=== PATIENT | female | born 1955 | race Caucasian/White ===

== ENCOUNTER → 2018-02-14 07:58 | Outpatient (CLI) | payer OTHER, SELFPAY ==
[2018-02-14 10:35] LABS: Absolute Lymphocyte Count 1.52 X10^3/ul (0.83-4.51); Absolute Neutrophil Count 3.3 X10^3/uL (2.0-7.7); Basophil# 0.03 X10^3/uL; Basophil% 0.5 % (0-1); Eosinophil# 0.18 X10^3/uL; Eosinophils% 3.3 % (0-5); Hematocrit 39.2 % (37-47); Hemoglobin 12.9 g/dl (12.0-15.0); Lymphocyte # 1.52 X10^3/ul (4.0); Lymphocyte % 27.6 % (19-41); Mean Corp Hgb Conc 32.9 g/gl (32-36); Mean Corpuscular Volume 94.2 fL (81-99); Mean Platelet Vol. 10.1 fl (6.2-12.0); Monocyte# 0.43 X10^3/uL; Monocyte% 7.8 % (0-10); Neutrophil # 3.33 X10^3/uL (2.7-7.7); Neutrophil % 60.6 % (47-70); Platelet Count 308 K/mm3 (150-450); RBC Distribution Width CV 12.8 % (11.6-14.6); RBC Distribution Width SD 42.8 fl (35.1-43.9); Red Blood Count 4.16 M/mm3 (4.2-5.4); White Blood Count 5.5 K/mm3 (4.4-11.0)
[2018-02-14 10:38] LABS: POSITIVE COUNT NO; POSITIVE DIFFERENTIAL NO; POSITIVE MORPHOLOGY NO
[2018-02-14 10:51] LABS: ALB/GLOB Ratio 1.1 RATIO (0.9-2.4); AST(SGOT) 14 U/L (15-37); Alanine Aminotransfer ALT/SGPT 23 U/L (13-56); Albumin, Serum 3.6 g/dL (3.2-5.0); Alkaline Phosphatase 65 U/L (45-117); Anion Gap 6 (5-15); BUN 19 mg/dL (7-18); BUN/Creat Ratio 25.6 RATIO (10-20); Chloride 105 mmol/L (98-107); Cholesterol 183 mg/dL (200); Creatinine, Serum 0.74 mg/dL (0.55-1.02); EST Glomerular Filtration Rate 85 mL/min (>60); Est Glom Filt Rate - Afr Amer 103 mL/min (>60); Globulin 3.3 g/dL (2.2-4.2); Glucose 84 mg/dL (74-106); High Density Lipoprotein 44 mg/dL; Potassium 3.8 mmol/L (3.5-5.1); Protein, Total 6.9 g/dL (6.4-8.2); Sodium Level 141 mmol/L (136-145); Triglycerides 233 mg/dL; Very Low Density Lipoprotein 47 mg/dL (5-40)
== END ==
PROVIDERS: Family Provider Nurse Practitioner Family; PCP Nurse Practitioner Family; Visit Provider Nurse Practitioner Family
DX: I10 Essential (primary) hypertension (principal); E78.5 Hyperlipidemia, unspecified; E55.9 Vitamin D deficiency, unspecified
CPT/HCPCS: 36415; 80053; 80061; 82306; 85025

== ENCOUNTER → 2018-07-12 10:49 | Outpatient (CLI) | payer OTHER, SELFPAY ==
[2018-07-18 09:36] LABS: HPV Reflexed? NOT INDICATED
== END ==
PROVIDERS: Visit Provider Obstetrics & Gynecology
DX: Z12.4 Encounter for screening for malignant neoplasm of cervix (principal)
CPT/HCPCS: 88175; G0145

== ENCOUNTER → 2018-08-11 08:40 | Outpatient (CLI) | payer OTHER, SELFPAY ==
--- NOTE | 2018-08-11 08:43 | BI_ITS ---
MAMMOGRAPHY - BILATERAL SCREENING REASON FOR EXAM: Female, 62 years old. Routine annual screening examination. PERTINENT HISTORY: Mother with breast cancer. Grandmother with breast cancer. TECHNIQUE: Digital bilateral breast tj (3D mammographic acquisition) in the CC and MLO projections. 2-D mediolateral oblique (MLO) and craniocaudad (CC) views of both breasts were obtained. CAD: Full Field Digital Mammography with Computer Added Detection was performed. COMPARISON: Comparison is made with prior study dated June 17, 2017 and April 27, 2016. FINDINGS: Breast Composition: The breasts are almost entirely fatty. There are no dominant masses or suspicious calcifications. Stable small bilateral axillary lymph nodes. No other significant abnormalities are identified. There has been no significant change since the prior study. BI/SCREENING MAMM (CAD), BILAT IMPRESSION: Stable bilateral screening mammogram. Yearly follow-up mammogram recommended. (A) ASSESSMENT CATEGORY: BIRADS Category 2: Benign. A letter regarding these results will be sent to the patient by the facility within 30 days. Approximately 10% of breast cancers are not detected by mammography. A normal mammogram should not delay biopsy of a clinically suspicious abnormality. [id number] Electronically Signed: Fredy Knox MD at 9:58 EDT Tel [phone], Service support ,
== END ==
PROVIDERS: Family Provider Nurse Practitioner Family; PCP Nurse Practitioner Family; Referring Provider Obstetrics & Gynecology; Visit Provider Obstetrics & Gynecology
DX: Z12.31 Encounter for screening mammogram for malignant neoplasm of breast (principal)
CPT/HCPCS: 77063; 77067

== ENCOUNTER → 2018-08-22 07:38 | Outpatient (CLI) | payer OTHER, SELFPAY ==
[2018-08-22 10:27] LABS: Absolute Lymphocyte Count 1.37 X10^3/ul (0.83-4.51); Absolute Neutrophil Count 3.5 X10^3/uL (2.0-7.7); Basophil# 0.03 X10^3/uL; Basophil% 0.6 % (0-1); Eosinophil# 0.13 X10^3/uL; Eosinophils% 2.4 % (0-5); Hematocrit 39.8 % (37-47); Hemoglobin 12.8 g/dl (12.0-15.0); Lymphocyte # 1.37 X10^3/ul (4.0); Lymphocyte % 25.1 % (19-41); Mean Corp Hgb Conc 32.2 g/gl (32-36); Mean Corpuscular Hgb 30.7 pg (27.0-32.0); Mean Corpuscular Volume 95.4 fL (81-99); Mean Platelet Vol. 10.1 fl (6.2-12.0); Monocyte# 0.45 X10^3/uL; Monocyte% 8.3 % (0-10); Neutrophil # 3.45 X10^3/uL (2.7-7.7); Neutrophil % 63.2 % (47-70); POSITIVE COUNT NO; POSITIVE DIFFERENTIAL NO; POSITIVE MORPHOLOGY NO; Platelet Count 298 K/mm3 (150-450); RBC Distribution Width CV 12.8 % (11.6-14.6); RBC Distribution Width SD 43.5 fl (35.1-43.9); Red Blood Count 4.17 M/mm3 (4.2-5.4); White Blood Count 5.5 K/mm3 (4.4-11.0)
[2018-08-22 10:41] LABS: ALB/GLOB Ratio 1.1 RATIO (0.9-2.4); AST(SGOT) 18 U/L (15-37); Alanine Aminotransfer ALT/SGPT 34 U/L (13-56); Albumin, Serum 3.7 g/dL (3.2-5.0); Alkaline Phosphatase 71 U/L (45-117); Anion Gap 6 (5-15); BUN 16 mg/dL (7-18); BUN/Creat Ratio 20.4 RATIO (10-20); Calcium,Total 9.2 mg/dL (8.5-10.1); Chloride 105 mmol/L (98-107); Cholesterol 200 mg/dL (200); Creatinine, Serum 0.78 mg/dL (0.55-1.02); EST Glomerular Filtration Rate 79 mL/min (>60); Est Glom Filt Rate - Afr Amer 96 mL/min (>60); Globulin 3.5 g/dL (2.2-4.2); Glucose 89 mg/dL (74-106); High Density Lipoprotein 47 mg/dL; Potassium 3.9 mmol/L (3.5-5.1); Protein, Total 7.2 g/dL (6.4-8.2); Sodium Level 142 mmol/L (136-145); Triglycerides 177 mg/dL; Very Low Density Lipoprotein 35 mg/dL (5-40)
[2018-08-22 10:46] LABS: Vitamin D,25 Hydroxy 58.2 ng/mL (29.95-100.01)
== END ==
PROVIDERS: Family Provider Nurse Practitioner Family; PCP Nurse Practitioner Family; Referring Provider Nurse Practitioner Family; Visit Provider Nurse Practitioner Family
DX: I10 Essential (primary) hypertension (principal); E78.5 Hyperlipidemia, unspecified; E55.9 Vitamin D deficiency, unspecified
CPT/HCPCS: 36415; 80053; 80061; 82043; 82306; 85025

== ENCOUNTER → 2019-02-27 07:06 | Outpatient (CLI) | payer OTHER, SELFPAY ==
[2019-02-27 10:17] LABS: Absolute Lymphocyte Count 1.31 X10^3/ul (0.83-4.51); Absolute Neutrophil Count 3.4 X10^3/uL (2.0-7.7); Basophil# 0.05 X10^3/uL; Basophil% 0.9 % (0-1); Eosinophils% 3.7 % (0-5); Hemoglobin 12.9 g/dl (12.0-15.0); Lymphocyte # 1.31 X10^3/ul (4.0); Mean Corp Hgb Conc 32.3 g/gl (32-36); Mean Corpuscular Hgb 30.1 pg (27.0-32.0); Mean Corpuscular Volume 93.5 fL (81-99); Mean Platelet Vol. 9.9 fl (6.2-12.0); Monocyte# 0.49 X10^3/uL; Neutrophil % 62.2 % (47-70); Platelet Count 285 K/mm3 (150-450); RBC Distribution Width CV 13.1 % (11.6-14.6); RBC Distribution Width SD 43.4 fl (35.1-43.9); Red Blood Count 4.28 M/mm3 (4.2-5.4); White Blood Count 5.5 K/mm3 (4.4-11.0)
[2019-02-27 10:24] LABS: POSITIVE COUNT NO; POSITIVE DIFFERENTIAL NO; POSITIVE MORPHOLOGY NO
[2019-02-27 11:00] LABS: Vitamin D,25 Hydroxy 59.1 ng/mL (29.95-100.01)
[2019-02-27 11:01] LABS: ALB/GLOB Ratio 1.1 RATIO (0.9-2.4); AST(SGOT) 25 U/L (15-37); Alanine Aminotransfer ALT/SGPT 44 U/L (13-56); Albumin, Serum 3.6 g/dL (3.2-5.0); Alkaline Phosphatase 76 U/L (45-117); Anion Gap 4 (5-15); BUN 14 mg/dL (7-18); BUN/Creat Ratio 17.7 RATIO (10-20); Calcium,Total 8.9 mg/dL (8.5-10.1); Chloride 106 mmol/L (98-107); Cholesterol 194 mg/dL (200); Creatinine, Serum 0.79 mg/dL (0.55-1.02); EST Glomerular Filtration Rate 78 mL/min (>60); Est Glom Filt Rate - Afr Amer 95 mL/min (>60); Globulin 3.4 g/dL (2.2-4.2); Glucose 87 mg/dL (74-106); High Density Lipoprotein 47 mg/dL; Potassium 3.9 mmol/L (3.5-5.1); Sodium Level 141 mmol/L (136-145); Triglycerides 184 mg/dL; Very Low Density Lipoprotein 37 mg/dL (5-40)
== END ==
PROVIDERS: Family Provider Nurse Practitioner Family; PCP Nurse Practitioner Family; Referring Provider Nurse Practitioner Family; Visit Provider Nurse Practitioner Family
DX: E78.5 Hyperlipidemia, unspecified (principal); E55.9 Vitamin D deficiency, unspecified; I10 Essential (primary) hypertension
CPT/HCPCS: 36415; 80053; 80061; 82306; 85025

== ENCOUNTER → 2019-08-14 | Outpatient (CLI) | payer OTHER, SELFPAY ==
--- NOTE | 2019-08-14 14:22 | BI_ITS ---
MAMMOGRAPHY - BILATERAL SCREENING REASON FOR EXAM: Female, 63 years old. Routine annual screening examination. PERTINENT HISTORY: Mother with breast cancer. Grandmother with breast cancer. TECHNIQUE: Digital bilateral breast tesha (3D mammographic acquisition) in the CC and MLO projections. 2-D mediolateral oblique (MLO) and craniocaudad (CC) views of both breasts were obtained. CAD: Full Field Digital Mammography with Computer Added Detection was performed. COMPARISON: Comparison is made with prior examination dated August 11, 2018 and June 17, 2017. FINDINGS: Breast Composition: The breasts are almost entirely fatty. There are no dominant masses or suspicious calcifications. Stable small benign-appearing right axillary lymph nodes. No other significant abnormalities are identified. There has been no significant change since the prior study. BI/SCREEN MAMM (CAD) W/TESHA BILAT IMPRESSION: Stable bilateral screening mammogram. Yearly follow-up mammogram recommended. (A) ASSESSMENT CATEGORY: BIRADS Category 2: Benign. A letter regarding these results will be sent to the patient by the facility within 30 days. Approximately 10% of breast cancers are not detected by mammography. A normal mammogram should not delay biopsy of a clinically suspicious abnormality. [id number] Electronically Signed: Fredy Knox, at 15:36 EDT , Service support ,
--- NOTE | 2019-08-14 14:28 | BD_ITS ---
STUDY: DUAL ENERGY X-RAY ABSORPTIOMETRY / DXA REASON FOR EXAM: Female, 63 years old. The patient is postmenopausal. Loss of height. TECHNIQUE: Bone Mineral Density (BMD) measurements of lumbar spine and bilateral hips were obtained. COMPARISON: None. FINDINGS: Lumbar Spine (L1-L4): g/cm2 (1.402) / T-score (2.0) / Z-score (3.3) Findings are suggestive of normal bone density with a low fracture risk. Left Femur Total: g/cm2 (1.174) / T-score (1.3) / Z-score (2.3) Left Femoral Neck: g/cm2 (1.230) / T-score (1.4) / Z-score (2.7) Right Femur Total: g/cm2 (1.191) / T-score (1.5) / Z-score (2.5) Right Femoral Neck: g/cm2 (1.196) / T-score (1.1) / Z-score (2.5) BD/Dexa Bone Density Study IMPRESSION: The patient is considered normal as outlined below according to World Dillon Organization (WHO) criteria with a low fracture risk. Reference Information: The T-score is the number of standard deviations above or below the standard which is normal for young adults at their peak bone mineral density. The World Health Organization (WHO) interprets the T-scores as follows: Above -1 Normal bone density Between -1 and -2.5 Osteopenia Equal to / or below -2.5 Osteoporosis As a practical clinical guideline, osteopenia may be graded as follows: Mild -1 through -1.5 Moderate -1.6 through -2.0 Severe -2.1 through -2.4 The Z-score is the number of standard deviations above or below age-matched controls. A Z-score of less than -1.5 would be considered abnormal. References: 1. NIH Osteoporosis and Related Bone Diseases http://www.osteo.org 2. International Society for Clinical Densitometry http://www.iscd.org 3. National Osteoporosis Foundation http://www.nof.org Electronically Signed: Fredy Knox, at 15:49 EDT , Service support ,
== END | disposition home or self-care (01) ==
LOC: OPBD 14:20
PROVIDERS: Family Provider Nurse Practitioner Family; PCP Nurse Practitioner Family; Referring Provider Obstetrics & Gynecology; Visit Provider Obstetrics & Gynecology
DX: N95.1 Menopausal and female climacteric states (principal); Z12.31 Encounter for screening mammogram for malignant neoplasm of breast
CPT/HCPCS: 77063; 77067; 77080

== ENCOUNTER → 2019-08-21 | Outpatient (CLI) | payer OTHER, SELFPAY ==
[2019-08-21 10:13] LABS: Absolute Lymphocyte Count 1.34 X10^3/uL (0.83-4.51); Absolute Neutrophil Count 3.4 X10^3/uL (2.0-7.7); Basophil# 0.05 X10^3/uL; Basophil% 0.9 % (0-1); Eosinophil# 0.11 X10^3/uL; Eosinophils% 2.1 % (0-5); Hematocrit 40.5 % (37-47); Hemoglobin 13.1 g/dL (12.0-15.0); Lymphocyte # 1.34 X10^3/ul (4.0); Lymphocyte % 25.1 % (19-41); Mean Corp Hgb Conc 32.3 g/dL (32-36); Mean Corpuscular Hgb 30.8 pg (27.0-32.0); Mean Corpuscular Volume 95.3 fL (81-99); Mean Platelet Vol. 9.7 fl (6.2-12.0); Monocyte# 0.42 X10^3/uL; Monocyte% 7.9 % (0-10); NRBC Flagged by Analyzer 0 % (0-5); Neutrophil # 3.39 X10^3/uL (2.7-7.7); Neutrophil % 63.4 % (47-70); Platelet Count 322 K/mm3 (150-450); RBC Distribution Width CV 12.5 % (11.6-14.6); RBC Distribution Width SD 43.1 fl (35.1-43.9); Red Blood Count 4.25 M/mm3 (4.2-5.4); White Blood Count 5.3 K/mm3 (4.4-11.0)
[2019-08-21 10:30] LABS: ALB/GLOB Ratio 1.1 RATIO (0.9-2.4); AST(SGOT) 18 U/L (15-37); Alanine Aminotransfer ALT/SGPT 26 U/L (13-56); Albumin, Serum 3.6 g/dL (3.2-5.0); Alkaline Phosphatase 65 U/L (45-117); Anion Gap 6 (5-15); BUN 17 mg/dL (7-18); BUN/Creat Ratio 20.8 RATIO (10-20); Calcium,Total 9.2 mg/dL (8.5-10.1); Chloride 106 mmol/L (98-107); Cholesterol 193 mg/dL (200); Creatinine, Serum 0.82 mg/dL (0.55-1.02); EST Glomerular Filtration Rate 75 mL/min (>60); Est Glom Filt Rate - Afr Amer 91 mL/min (>60); Globulin 3.4 g/dL (2.2-4.2); Glucose 96 mg/dL (74-106); High Density Lipoprotein 54 mg/dL; Microalbumin,Random Urine 5.4 mg/L (NO RANGE EST.); Sodium Level 142 mmol/L (136-145); Triglycerides 160 mg/dL; Very Low Density Lipoprotein 32 mg/dL (5-40)
[2019-08-21 10:41] LABS: Vitamin D,25 Hydroxy 63.3 ng/mL (29.95-100.01)
== END | disposition home or self-care (01) ==
LOC: MTLAB 07:39
PROVIDERS: Family Provider Nurse Practitioner Family; PCP Nurse Practitioner Family; Referring Provider Nurse Practitioner Family; Visit Provider Nurse Practitioner Family
DX: E78.5 Hyperlipidemia, unspecified (principal); E55.9 Vitamin D deficiency, unspecified; I10 Essential (primary) hypertension
CPT/HCPCS: 36415; 80053; 80061; 82043; 82306; 85025

== ENCOUNTER → 2020-02-12 | Outpatient (CLI) | payer OTHER, SELFPAY ==
[2020-02-12 10:04] LABS: Hematocrit 40.1 % (37-47); Hemoglobin 12.7 g/dL (12.0-15.0); Mean Corp Hgb Conc 31.7 g/dL (32-36); Mean Corpuscular Hgb 30.1 pg (27.0-32.0); Platelet Count 324 K/mm3 (150-450); RBC Distribution Width CV 12.8 % (11.6-14.6); RBC Distribution Width SD 44.5 fl (35.1-43.9); Red Blood Count 4.22 M/mm3 (4.2-5.4); White Blood Count 6.2 K/mm3 (4.4-11.0)
[2020-02-12 10:20] LABS: ALB/GLOB Ratio 1.1 RATIO (0.9-2.4); AST(SGOT) 19 U/L (15-37); Alanine Aminotransfer ALT/SGPT 31 U/L (13-56); Albumin, Serum 3.5 g/dL (3.2-5.0); Alkaline Phosphatase 70 U/L (45-117); Anion Gap 4 (5-15); BUN 12 mg/dL (7-18); BUN/Creat Ratio 15.6 RATIO (10-20); Calcium,Total 9.4 mg/dL (8.5-10.1); Chloride 106 mmol/L (98-107); Cholesterol 189 mg/dL (200); Creatinine, Serum 0.77 mg/dL (0.55-1.02); EST Glomerular Filtration Rate 81 mL/min (>60); Est Glom Filt Rate - Afr Amer 98 mL/min (>60); Globulin 3.3 g/dL (2.2-4.2); Glucose 92 mg/dL (74-106); High Density Lipoprotein 47 mg/dL; Potassium 3.7 mmol/L (3.5-5.1); Protein, Total 6.8 g/dL (6.4-8.2); Sodium Level 140 mmol/L (136-145); Triglycerides 121 mg/dL; Very Low Density Lipoprotein 24 mg/dL (5-40)
[2020-02-12 10:24] LABS: Vitamin D,25 Hydroxy 79.5 ng/mL
== END | disposition home or self-care (01) ==
LOC: MTLAB 07:29
PROVIDERS: PCP Nurse Practitioner Family; Referring Provider Nurse Practitioner Family; Visit Provider Nurse Practitioner Family
DX: E55.9 Vitamin D deficiency, unspecified (principal); E78.5 Hyperlipidemia, unspecified; I10 Essential (primary) hypertension
CPT/HCPCS: 36415; 80053; 80061; 82306; 85027

== ENCOUNTER → 2020-08-21 08:09 | Outpatient (CLI) | payer OTHER, SELFPAY ==
[2020-08-21 10:17] LABS: Hematocrit 41.5 % (37-47); Hemoglobin 13.3 g/dL (12.0-15.0); Mean Corpuscular Hgb 30.5 pg (27.0-32.0); Mean Corpuscular Volume 95.2 fL (81-99); Mean Platelet Vol. 9.9 fl (6.2-12.0); Platelet Count 344 K/mm3 (150-450); RBC Distribution Width CV 12.5 % (11.6-14.6); RBC Distribution Width SD 43.4 fl (35.1-43.9); Red Blood Count 4.36 M/mm3 (4.2-5.4); White Blood Count 5.6 K/mm3 (4.4-11.0)
[2020-08-21 10:34] LABS: ALB/GLOB Ratio 1.1 RATIO (0.9-2.4); AST(SGOT) 20 U/L (15-37); Alanine Aminotransfer ALT/SGPT 36 U/L (13-56); Albumin, Serum 3.7 g/dL (3.2-5.0); Alkaline Phosphatase 79 U/L (45-117); Anion Gap 3 (5-15); BUN 13 mg/dL (7-18); BUN/Creat Ratio 15.7 RATIO (10-20); Calcium,Total 9.6 mg/dL (8.5-10.1); Chloride 105 mmol/L (98-107); Cholesterol 202 mg/dL (200); Creatinine, Serum 0.83 mg/dL (0.55-1.02); EST Glomerular Filtration Rate 74 mL/min (>60); Est Glom Filt Rate - Afr Amer 90 mL/min (>60); Globulin 3.5 g/dL (2.2-4.2); Glucose 101 mg/dL (74-106); High Density Lipoprotein 51 mg/dL; Potassium 4.2 mmol/L (3.5-5.1); Protein, Total 7.2 g/dL (6.4-8.2); Sodium Level 139 mmol/L (136-145); Triglycerides 186 mg/dL; Very Low Density Lipoprotein 37 mg/dL (5-40)
[2020-08-21 13:53] LABS: Vitamin D,25 Hydroxy 80.7 ng/mL
== END ==
PROVIDERS: PCP Nurse Practitioner Family; Referring Provider Nurse Practitioner Family; Visit Provider Nurse Practitioner Family
DX: I10 Essential (primary) hypertension (principal); E78.5 Hyperlipidemia, unspecified; E55.9 Vitamin D deficiency, unspecified
CPT/HCPCS: 36415; 80053; 80061; 82306; 85027

== ENCOUNTER → 2021-08-24 07:45 | Outpatient (CLI) | payer SELFPAY ==
[2021-08-24 09:57] LABS: Hematocrit 38.2 % (37-47); Hemoglobin 12.9 g/dL (12.0-15.0); Mean Corp Hgb Conc 33.8 g/dL (32-36); Mean Corpuscular Hgb 31.3 pg (27.0-32.0); Mean Corpuscular Volume 92.7 fL (81-99); Mean Platelet Vol. 9.9 fl (6.2-12.0); Platelet Count 323 K/mm3 (150-450); RBC Distribution Width CV 12.5 % (11.6-14.6); RBC Distribution Width SD 42.8 fl (35.1-43.9); Red Blood Count 4.12 M/mm3 (4.2-5.4); White Blood Count 5.2 K/mm3 (4.4-11.0)
[2021-08-24 10:10] LABS: AST(SGOT) 19 U/L (15-37); Alanine Aminotransfer ALT/SGPT 32 U/L (13-56); Albumin, Serum 3.5 g/dL (3.2-5.0); Alkaline Phosphatase 73 U/L (45-117); Anion Gap 3 (5-15); BUN 15 mg/dL (7-18); BUN/Creat Ratio 21.2 RATIO (10-20); Calcium,Total 9.6 mg/dL (8.5-10.1); Chloride 106 mmol/L (98-107); Creatinine, Serum 0.71 mg/dL (0.55-1.02); EST Glomerular Filtration Rate 88 mL/min (>60); Est Glom Filt Rate - Afr Amer 107 mL/min (>60); Globulin 3.6 g/dL (2.2-4.2); Glucose 100 mg/dL (74-106); Protein, Total 7.1 g/dL (6.4-8.2); Sodium Level 138 mmol/L (136-145)
[2021-08-24 10:14] LABS: Vitamin D,25 Hydroxy 83.4 ng/mL
== END ==
PROVIDERS: PCP Nurse Practitioner Family; Referring Provider Nurse Practitioner Family; Visit Provider Nurse Practitioner Family
DX: I10 Essential (primary) hypertension (principal); E78.5 Hyperlipidemia, unspecified; E55.9 Vitamin D deficiency, unspecified
CPT/HCPCS: 36415; 80053; 82306; 85027

== ENCOUNTER → 2022-02-23 | Outpatient (CLI) | payer SELFPAY ==
[2022-02-23 10:12] LABS: Hematocrit 37.8 % (37-47); Hemoglobin 12.6 g/dL (12.0-15.0); Mean Corp Hgb Conc 33.3 g/dL (32-36); Mean Corpuscular Hgb 30.7 pg (27.0-32.0); Mean Platelet Vol. 9.8 fl (6.2-12.0); Platelet Count 336 K/mm3 (150-450); RBC Distribution Width CV 12.8 % (11.6-14.6); RBC Distribution Width SD 43.3 fl (35.1-43.9); Red Blood Count 4.11 M/mm3 (4.2-5.4); White Blood Count 5.2 K/mm3 (4.4-11.0)
[2022-02-23 10:53] LABS: Vitamin D,25 Hydroxy 85.1 ng/mL
[2022-02-23 11:21] LABS: ALB/GLOB Ratio 1.1 RATIO (0.9-2.4); AST(SGOT) 23 U/L (15-37); Alanine Aminotransfer ALT/SGPT 34 U/L (13-56); Albumin, Serum 3.6 g/dL (3.2-5.0); Alkaline Phosphatase 69 U/L (45-117); Anion Gap 9 (5-15); BUN 17 mg/dL (7-18); BUN/Creat Ratio 22.8 RATIO (10-20); Calcium,Total 9.3 mg/dL (8.5-10.1); Chloride 104 mmol/L (98-107); Cholesterol 195 mg/dL (200); Creatinine, Serum 0.74 mg/dL (0.55-1.02); EST Glomerular Filtration Rate 83 mL/min (>60); Est Glom Filt Rate - Afr Amer 101 mL/min (>60); Globulin 3.3 g/dL (2.2-4.2); Glucose 95 mg/dL (74-106); High Density Lipoprotein 48 mg/dL; Potassium 3.7 mmol/L (3.5-5.1); Protein, Total 6.9 g/dL (6.4-8.2); Sodium Level 140 mmol/L (136-145); Triglycerides 152 mg/dL; Very Low Density Lipoprotein 30 mg/dL (5-40)
== END | disposition home or self-care (01) ==
PROVIDERS: PCP Nurse Practitioner Family; Referring Provider Nurse Practitioner Family; Visit Provider Nurse Practitioner Family
DX: D64.9 Anemia, unspecified (principal); I10 Essential (primary) hypertension; E78.5 Hyperlipidemia, unspecified; E55.9 Vitamin D deficiency, unspecified
CPT/HCPCS: 36415; 80053; 80061; 82306; 85027

== ENCOUNTER → 2022-08-24 | Outpatient (CLI) | payer MEDICARE, SELFPAY ==
[2022-08-24 10:07] LABS: Hematocrit 38.1 % (37-47); Hemoglobin 12.5 g/dL (12.0-15.0); Mean Corp Hgb Conc 32.8 g/dL (32-36); Mean Corpuscular Hgb 30.9 pg (27.0-32.0); Mean Corpuscular Volume 94.3 fL (81-99); Mean Platelet Vol. 9.6 fl (6.2-12.0); Platelet Count 328 K/mm3 (150-450); RBC Distribution Width CV 12.7 % (11.6-14.6); RBC Distribution Width SD 43.9 fl (35.1-43.9); Red Blood Count 4.04 M/mm3 (4.2-5.4); White Blood Count 5.2 K/mm3 (4.4-11.0)
[2022-08-24 10:23] LABS: Vitamin D,25 Hydroxy 83.9 ng/mL
[2022-08-24 10:36] LABS: ALB/GLOB Ratio 1.1 RATIO (0.9-2.4); AST(SGOT) 17 U/L (15-37); Alanine Aminotransfer ALT/SGPT 31 U/L (13-56); Albumin, Serum 3.5 g/dL (3.2-5.0); Alkaline Phosphatase 67 U/L (45-117); Anion Gap 6 (5-15); BUN 13 mg/dL (7-18); BUN/Creat Ratio 18.9 RATIO (10-20); Calcium,Total 9.6 mg/dL (8.5-10.1); Chloride 105 mmol/L (98-107); Cholesterol 200 mg/dL (200); Creatinine, Serum 0.69 mg/dL (0.55-1.02); EST Glomerular Filtration Rate 91 mL/min (>60); Est Glom Filt Rate - Afr Amer 110 mL/min (>60); Globulin 3.3 g/dL (2.2-4.2); Glucose 99 mg/dL (74-106); High Density Lipoprotein 51 mg/dL; Potassium 4.2 mmol/L (3.5-5.1); Protein, Total 6.8 g/dL (6.4-8.2); Sodium Level 141 mmol/L (136-145); Thyroid Stim Hormone (TSH) 1.07 uIU/mL (0.358-3.74); Triglycerides 172 mg/dL; Very Low Density Lipoprotein 34 mg/dL (5-40)
[2022-08-24 10:44] LABS: Microalbumin,Random Urine 6.2 mg/L (NO RANGE EST.)
== END | disposition home or self-care (01) ==
LOC: MTLAB 08:00
PROVIDERS: PCP Nurse Practitioner Family; Referring Provider Nurse Practitioner Family; Visit Provider Nurse Practitioner Family
DX: I10 Essential (primary) hypertension (principal); E78.5 Hyperlipidemia, unspecified; E55.9 Vitamin D deficiency, unspecified; D64.9 Anemia, unspecified; K21.9 Gastro-esophageal reflux disease without esophagitis
CPT/HCPCS: 36415; 80053; 80061; 82043; 82306; 84443; 85027

== ENCOUNTER → 2022-09-28 | Outpatient (CLI) | payer MEDICARE, SELFPAY ==
--- NOTE | 2022-09-28 13:42 | BI_ITS ---
MAMMOGRAPHY - BILATERAL SCREENING REASON FOR EXAM: Female, 67 years old. Routine annual screening examination. PERTINENT HISTORY: Mother with breast cancer. Grandmother with breast cancer. TECHNIQUE: Digital bilateral breast tesha (3D mammographic acquisition) in the CC and MLO projections. 2-D mediolateral oblique (MLO) and craniocaudad (CC) views of both breasts were obtained. CAD: Full Field Digital Mammography with Computer Added Detection was performed. COMPARISON: Comparison is made with prior study dated 08/14/2019 and 08/11/2018. FINDINGS: Breast Composition: The breasts are almost entirely fatty. There are no dominant masses or suspicious calcifications. Stable small benign appearing bilateral axillary lymph nodes. No other significant abnormalities are identified. There has been no significant change since the prior study. BI/SCRN MAMM (CAD)W/TESHA BILAT IMPRESSION: Stable bilateral screening mammogram. Yearly follow-up mammogram recommended. (A) ASSESSMENT CATEGORY: BIRADS Category 2: Benign. A letter regarding these results will be sent to the patient by the facility within 30 days. Approximately 10% of breast cancers are not detected by mammography. A normal mammogram should not delay biopsy of a clinically suspicious abnormality. [id number] Electronically Signed: Fredy Knox MD at 14:59 EST ,
--- NOTE | 2022-09-28 13:49 | BD_ITS ---
STUDY: DUAL ENERGY X-RAY ABSORPTIOMETRY / DXA REASON FOR EXAM: Female, 67 years old. [id number] TECHNIQUE: Bone Mineral Density (BMD) measurements of lumbar spine and bilateral hips were obtained. COMPARISON: Comparison is made with prior study dated 08/14/2019. FINDINGS: Lumbar Spine (L1-L4): g/cm2 (1.211) / T-score (1.8) / Z-score (3.5) Findings are suggestive of normal bone density with a low fracture risk. Left Femur Total: g/cm2 (1.085) / T-score (1.2) / Z-score (2.4) Left Femoral Neck: g/cm2 (0.902) / T-score (0.5) / Z-score (2.0) Right Femur Total: g/cm2 (1.104) / T-score (1.3) / Z-score (2.6) Right Femoral Neck: g/cm2 (0.981) / T-score (1.2) / Z-score (2.7) The T-Scores on the most recent prior examination were: Lumbar Spine (L1-L4): There has been worsening of bone density since the previous examination. Left Femur Total: which represents a worsening of 1.7%. Right Femur Total: which represents a worsening of 1.4%. BD/Dexa Bone Density Study IMPRESSION: The patient is considered normal as outlined below according to World [place] Organization (WHO) criteria with a low fracture risk. There has been worsening of bone density since the previous examination. Reference Information: The T-score is the number of standard deviations above or below the standard which is normal for young adults at their peak bone mineral density. The World Health Organization (WHO) interprets the T-scores as follows: Above -1 Normal bone density Between -1 and -2.5 Osteopenia Equal to / or below -2.5 Osteoporosis As a practical clinical guideline, osteopenia may be graded as follows: Mild -1 through -1.5 Moderate -1.6 through -2.0 Severe -2.1 through -2.4 The Z-score is the number of standard deviations above or below age-matched controls. A Z-score of less than -1.5 would be considered abnormal. References: 1. NIH Osteoporosis and Related Bone Diseases www osteo.org 2. International Society for Clinical Densitometry www iscd.org 3. National Osteoporosis Foundation www nof.org Electronically Signed: Fredy Knox MD at 14:17 EST ,
== END | disposition home or self-care (01) ==
LOC: OPBI 13:40
PROVIDERS: PCP Nurse Practitioner Family; Visit Provider Obstetrics & Gynecology Gynecology
DX: Z12.31 Encounter for screening mammogram for malignant neoplasm of breast (principal); M85.80 Other specified disorders of bone density and structure, unspecified site; Z80.3 Family history of malignant neoplasm of breast; Z78.0 Asymptomatic menopausal state
CPT/HCPCS: 77063; 77067; 77080

== ENCOUNTER → 2023-02-24 | Outpatient (CLI) | payer MEDICARE, SELFPAY ==
[2023-02-24 10:17] LABS: Hemoglobin 12.3 g/dL (12.0-15.0); Mean Corp Hgb Conc 31.5 g/dL (32-36); Mean Corpuscular Hgb 29.8 pg (27.0-32.0); Mean Corpuscular Volume 94.4 fL (81-99); Mean Platelet Vol. 9.6 fl (6.2-12.0); Platelet Count 310 K/mm3 (150-450); RBC Distribution Width CV 12.8 % (11.6-14.6); RBC Distribution Width SD 44.2 fl (35.1-43.9); Red Blood Count 4.13 M/mm3 (4.2-5.4); White Blood Count 4.7 K/mm3 (4.4-11.0)
[2023-02-24 10:40] LABS: Vitamin D,25 Hydroxy 76.9 ng/mL
[2023-02-24 10:45] LABS: ALB/GLOB Ratio 1.1 RATIO (0.9-2.4); AST(SGOT) 17 U/L (15-37); Alanine Aminotransfer ALT/SGPT 30 U/L (13-56); Albumin, Serum 3.7 g/dL (3.2-5.0); Alkaline Phosphatase 60 U/L (45-117); Anion Gap 5 (5-15); BUN 12 mg/dL (7-18); BUN/Creat Ratio 16.2 RATIO (10-20); Calcium,Total 9.6 mg/dL (8.5-10.1); Chloride 105 mmol/L (98-107); Cholesterol 182 mg/dL (200); Creatinine, Serum 0.74 mg/dL (0.55-1.02); EST Glomerular Filtration Rate 84 mL/min (>60); Est Glom Filt Rate - Afr Amer 101 mL/min (>60); Globulin 3.4 g/dL (2.2-4.2); Glucose 92 mg/dL (74-106); High Density Lipoprotein 51 mg/dL; Potassium 4.3 mmol/L (3.5-5.1); Protein, Total 7.1 g/dL (6.4-8.2); Sodium Level 140 mmol/L (136-145); Triglycerides 127 mg/dL; Very Low Density Lipoprotein 25 mg/dL (5-40)
== END | disposition home or self-care (01) ==
LOC: MTLAB 08:00
PROVIDERS: PCP Nurse Practitioner Family; Referring Provider Nurse Practitioner Family; Visit Provider Nurse Practitioner Family
DX: D64.9 Anemia, unspecified (principal); R63.8 Other symptoms and signs concerning food and fluid intake; I10 Essential (primary) hypertension; E78.5 Hyperlipidemia, unspecified; E55.9 Vitamin D deficiency, unspecified
CPT/HCPCS: 36415; 80053; 80061; 82306; 85027

== ENCOUNTER → 2023-08-19 | Outpatient (CLI) | payer MEDICARE, SELFPAY ==
[2023-08-19 13:27] LABS: Hematocrit 42.2 % (37-47); Hemoglobin 13.6 g/dL (12.0-15.0); Mean Corp Hgb Conc 32.2 g/dL (32-36); Mean Corpuscular Hgb 30.6 pg (27.0-32.0); Mean Corpuscular Volume 94.8 fL (81-99); Mean Platelet Vol. 9.8 fl (6.2-12.0); Platelet Count 360 K/mm3 (150-450); RBC Distribution Width CV 12.7 % (11.6-14.6); RBC Distribution Width SD 43.8 fl (35.1-43.9); Red Blood Count 4.45 M/mm3 (4.2-5.4); White Blood Count 5.8 K/mm3 (4.4-11.0)
[2023-08-19 13:40] LABS: Vitamin D,25 Hydroxy 86.6 ng/mL
[2023-08-19 13:42] LABS: ALB/GLOB Ratio 1.1 RATIO (0.9-2.4); AST(SGOT) 22 U/L (15-37); Alanine Aminotransfer ALT/SGPT 42 U/L (13-56); Albumin, Serum 3.8 g/dL (3.2-5.0); Alkaline Phosphatase 76 U/L (45-117); Anion Gap 5 (5-15); BUN 12 mg/dL (7-18); BUN/Creat Ratio 15.3 RATIO (10-20); Calcium,Total 9.6 mg/dL (8.5-10.1); Chloride 102 mmol/L (98-107); Cholesterol 206 mg/dL (200); Creatinine, Serum 0.78 mg/dL (0.55-1.02); EST Glomerular Filtration Rate 78 mL/min (>60); Est Glom Filt Rate - Afr Amer 95 mL/min (>60); Globulin 3.5 g/dL (2.2-4.2); Glucose 96 mg/dL (74-106); High Density Lipoprotein 55 mg/dL; Potassium 3.8 mmol/L (3.5-5.1); Protein, Total 7.3 g/dL (6.4-8.2); Sodium Level 138 mmol/L (136-145); Triglycerides 126 mg/dL; Very Low Density Lipoprotein 25 mg/dL (5-40)
[2023-08-19 13:49] LABS: Microalbumin,Random Urine 10.9 mg/L (NO RANGE EST.); Microalbumin:Creatinine Ratio 11.9 mg/g CRE (<30 mg/g CRE)
== END | disposition home or self-care (01) ==
LOC: MTLAB 09:41
PROVIDERS: PCP Nurse Practitioner Family; Referring Provider Nurse Practitioner Family; Visit Provider Nurse Practitioner Family
DX: I10 Essential (primary) hypertension (principal); E78.5 Hyperlipidemia, unspecified; D64.9 Anemia, unspecified; E55.9 Vitamin D deficiency, unspecified
CPT/HCPCS: 36415; 80053; 80061; 82043; 82306; 82570; 85027

== ENCOUNTER → 2023-12-06 | Outpatient (CLI) | payer MEDICARE, SELFPAY ==
--- NOTE | 2023-12-06 10:55 | BI_ITS ---
MAMMOGRAPHY - BILATERAL SCREENING REASON FOR EXAM: Female, 68 years old. Routine annual screening examination. PERTINENT HISTORY: Mother with breast cancer. Grandmother with breast cancer. TECHNIQUE: Digital bilateral breast tesha (3D mammographic acquisition) in the CC and MLO projections. 2-D mediolateral oblique (MLO) and craniocaudad (CC) views of both breasts were obtained. CAD: Full Field Digital Mammography with Computer Added Detection was performed. COMPARISON: Comparison is made with prior study dated September 28, 2022 and August 14, 2019. FINDINGS: Breast Composition: The breasts are almost entirely fatty. There are no dominant masses or suspicious calcifications. Stable small benign-appearing bilateral axillary lymph nodes. No other significant abnormalities are identified. There has been no significant change since the prior study. BI/SCRN MAMM (CAD)W/TESHA BILAT IMPRESSION: Stable bilateral screening mammogram. Yearly follow-up mammogram recommended. (A) ASSESSMENT CATEGORY: BIRADS Category 2: Benign. A letter regarding these results will be sent to the patient by the facility within 30 days. Approximately 10% of breast cancers are not detected by mammography. A normal mammogram should not delay biopsy of a clinically suspicious abnormality. [id number] Electronically Signed: Fredy Knox MD at 12:31 EST ,
--- OUTSIDE RECORDS SUMMARY | 2023-12-06 11:26 | XMS RPT_ITS | CCD ---
Author Name Unknown Address [facility] [place] [address] Organization [facility] Care Team Providers Care Director Of Land Name Role Phone JUAN ANTONIO JACK WINDER - DAIRY AND FOOD LABORATORY ASSISTANT, DANIEL Mccloud Primary Care Phys ician JUAN ANTONIO JACK WINDER - DAIRY AND FOOD LABORATORY ASSISTANT, DANIEL Mccloud Primary Care U navailable MAST JACK WINDER-DAIRY AND FOOD LABORATORY ASSISTANT, MANJIT Attending Edwige SPIVEY MD, REGINA Attending Unavailable JUAN ANTONIO JACK WINDER - DAIRY AND FOOD LABORATORY ASSISTANT, DANIEL Mccloud Primary Care U sherrie SPIVEY MD, REGINA Consulting Clint SPIVEY MD, REGINA Attending Unavailable JUAN ANTONIO JACK WINDER - DAIRY AND FOOD LABORATORY ASSISTANT, DANIEL Mccloud Primary Care U navailable JUAN ANTONIO JACK WINDER - DAIRY AND FOOD LABORATORY ASSISTANT, DANIEL Mccloud Primary Care U navailable JUAN ANTONIO JACK WINDER - DAIRY AND FOOD LABORATORY ASSISTANT, DANIEL Mccloud Attending U navailable Allergies Allergy Classification Reported Allergen(s) Allergy Type Date of Onset Reaction(s) Facility (2 sources) Penicillins; Translations: [penicillins] Drug allergy Unknown (qualifier value) [facility] Medications Current Medications Medication Drug Class(es) Dates Sig (Normalized) Sig (Original) hydroCHLOROthiazide 25 mg oral tablet (2 sources) Thiazide Diuretic Start: 3 hydroCHLOROthiazide 25 mg oral tablet Dose : 25 mg = 1 tab(s), Oral, qDay, # 90 tab(s), 0 Refill(s), Pharmacy: [facility], 175, cm, 08/16/23 13:56:00 EDT, Height, kg, 08/16/23 13:56:00 EDT, Dosing Weight Start Date: 08/19/23 Status: Ordered Completed/Discontinued Medications Medication Drug Class(es) Dates Sig (Normalized) Sig (Original) ergocalciferol 1.25 mg oral capsule (2 sources) Provitamin D2 Compound Start: 03-04-2023 End: 06-02-2023 ergocalciferol 50,000 intl units (1.25 mg) oral capsule Dose : 50,000 International_Unit = 1 cap(s), Oral, every other week, # 7 cap(s), 0 Refill(s), Pharmacy: [facility] ([facility] ), 175, cm, 03/04/23 10:56:00 EDT, Height, kg, 03/04/23 10:56:00 EDT, Dosing Weight Start Date: 03/04/23 Stop Date: 06/02/23 Status: Ordered Problems Problem Classification Problem Date Documented Da te Episodic/Chronic Abdominal hernia (1 source) Umbilical hernia 08-16-2023 Episodic Deficiency and other anemia (2 sources) Anemia 09-01-2021 Episodic Disorders of lipid metabolism (2 sources) Hyperlipidemia 2019 Chronic Esophageal disorders (2 sources) Gastroesophageal reflux disease 02-26-2020 Chronic Essential hypertension (4 sources) Hypertensive disorder; Translations: [Essential (primary) hypertension] Onset: 08-28-2019 Chronic Heart valve disorders (2 sources) Heart murmur 02-26-2020 Episodic Nausea and vomiting (1 source) Nausea 08-16-2023 Episodic Nutritional deficiencies (2 sources) Vitamin D deficiency 2019 Chronic Other gastrointestinal disorders (1 source) Abdominal bloating 08-16-2023 Episodic Other gastrointestinal disorders (1 source) Diarrhea 08-16-2023 Episodic Other inflammatory condition of skin (2 sources) Psoriatic arthritis 2019 Chronic Residual codes; unclassified (2 sources) Increased body mass index 02-26-2020 Episodic Residual codes; unclassified (2 sources) Postmenopausal state 09-03-2022 Episodic Residual codes; unclassified (1 source) Not up to date with immunizations 10-26-2022 Episodic Unclassified (2 sources) Non-smoker 03-04-2022 Unclassified (2 sources) Vaccination needed 09-03-2022 Unclassified (1 source) Cancer cervix screening status 10-26-2022 Unclassified (6 sources) Patient encounter status 10-26-2022 Results Test Name Value Interpretation Reference Range Facil ity Encounters Encounter Date Encounter Type Care Provider Facility Start: 09-22-2023 End: 09-22-2023 ambulatory REGINA SPIVEY MD Facility:B Start: 09-14-2023 End: 09-15-2023 ambulatory REGINA SPIVEY MD Facility:[facility] Start: 08-19-2023 End: 08-20-2023 ambulatory DANIEL MONTANOPKINS JACK WINDER - DAIRY AND FOOD LABORATORY ASSISTANT Facility:[facility] Start: 08-19-2023 End: 08-19-2023 Patient encounter procedure MANJIT MAST JACK WINDER-DAIRY AND FOOD LABORATORY ASSISTANT [facility] Start: 03-04-2023 End: 03-09-2023 ambulatory DANIEL MONTANOPKINS JACK WINDER - DAIRY AND FOOD LABORATORY ASSISTANT Facility:[facility] Start: 08-31-2022 End: 09-04-2022 Outreach Lab JESSY ADAM MD [facility] Procedures Date Procedure Procedure Detail Performing Clinician Start: 10-17-2018 Cataract (disorder) KRI STA MAST JACK WINDER-DAIRY AND FOOD LABORATORY ASSISTANT Immunizations Immunization Date Immunization Notes Care Provider [facility] 09-03-2022 influenza, high dose seasonal, preservative-free JESSY ADAM MD [facility] 03-11-2022 SARS-CoV-2 (COVID-19 ) mRNA-1273 vaccine MANJIT MAST JACK WINDER-DAIRY AND FOOD LABORATORY ASSISTANT [facility] 09-14-2021 SARS-CoV-2 (COVID-19 ) mRNA-1273 vaccine JESSY ADAM MD [facility] 01-14-2021 COVID-19, mRNA, LNP- S, PF, 100 mcg or 50 mcg dose; Translations: [Moderna COVID-19 Vaccine] JESSY ADAM MD [facility] 12-17-2020 COVID-19, mRNA, LNP- S, PF, 100 mcg or 50 mcg dose; Translations: [Moderna COVID-19 Vaccine] JESSY ADAM MD [facility] Payers Date Payer Category Payer Private Health Insurance [id number] 1955 Unknown [id number] 1955 Unknown [id number] 1955 Unknown [id number] 1955 Unknown [id number] [id number] Social History Date Type Detail Facility Start: 2019 Tobacco smoking status Ex-smoker (fi nding) [facility] Sex Assigned At Female [facility] Evaluation + Plan note LaboratoryRadiology Note Date & Type Note Facility Evaluation + Plan note Future Appointments Appointment Date:10/26/2022 09:00:00 AM Scheduled Provider:DANIEL ROMANO APRN [employer] DAIRY AND FOOD LABORATORY ASSISTANT Location:[facility] Appointment Type:PC Wellness Medicare Appointment Date:03/04/2023 10:20:00 AM Scheduled Provider:DANIEL ROMANO JACK WINDER - DAIRY AND FOOD LABORATORY ASSISTANT Location:[facility] Appointment Type:PC OV Follow Up Diagnostic Tests PendingHPV Screen, DNA Probe 08/31/22 Future Scheduled TestsComplete Blood Count 03/03/23Lipid Profile 03/03/23Microalbumin Level Urine 03/03/23Vitamin D Level 03/03/23Complete Metabolic Panel 03/03/23MA Mammo Screening Bilateral w/ Ollie 08/31/22BD Bone Density DEXA Axial Skeleton 09/03/22 [facility] Evaluation + Plan note LaboratoryRadiology Note Date & Type Note Facility Evaluation + Plan note Future Appointments Appointment Date:09/02/2023 10:20:00 AM Scheduled Provider:DANIEL ROMANO APRN - DAIRY AND FOOD LABORATORY ASSISTANT Location:[facility] Appointment Type:PC OV Follow Up Appointment Date:09/20/2023 01:30:00 PM Scheduled Provider:JESSY ADAM MD Location: [facility] Appointment Type: OV Annual Exam Future Scheduled TestsMicroalbumin Level Urine 03/03/23MA Mammo Screening Bilateral w/ Ollie 08/31/22BD Bone Density DEXA Axial Skeleton 09/03/22 [facility] Hospital course Narrative Note Date & Type Note Facility Hospital course Narrative No data available for this section [facility] Hospital Discharge instructions Note Date & Type Note Facility Hospital Discharge instructions No data available for this section [facility] Progress note Note Date & Type Note Facility Progress note No data available for this section [facility] Summary Purpose Family History No Family History Records Found Advance Directives No Advanced Directives Records Found Additional Source Comments Care Team (unrecognized sect ion and content) Care Team Personnel Name: DANIEL ROMANO APRN, CNP Position: P4 Advanced Practice Nurse Member Role: Primary Care Physician Address: Address: [address] [place] [address] Care Team Related Persons Name: LAURA ROJAS Brennen Address: [address] [place] [id number] Address: Temporary [address] [place] [address] [address] [place] [id number] Patient Care team informatio n (unrecognized section and content) Care Team Personnel Name: DANIEL ROMANO APRN, CNP Position: P4 Advanced Wood Getter Member Role: Primary Care Physician Address: Address: [address] [place] [address] Care Team Related Persons Name: LAURA ROJAS Brennen Address: Home [address] [place] [address] [address] [place] [id number] Address: Temporary [address] [place] [address] [address] [place] [id number] INFORMATION SOURCE (unrecogn ized section and content) FOR RECORDS PERTAINING TO PATIENTS WHO ARE OR HAVE BEEN ENROLLED IN A CHEMICAL DEPENDENCY/SUBSTANCEABUSE PROGRAM, SOME INFORMATION MAY BE OMITTED. This clinical summary was aggregated from multiple sources. Caution should be exercised in using it in the provision of clinical care. This summary normalizes information from multiple sources, and as a consequence, information in this document may materially change the coding, format and clinical context of patient data. In addition, data may be omitted in some cases. CLINICAL DECISIONS SHOULD BE BASED ON THE PRIMARY CLINICAL RECORDS. [facility] [employer] [facility]. provides no warranty or guarantee of the accuracy or completeness of information in this document.
== END | disposition home or self-care (01) ==
LOC: OPBI 10:54
PROVIDERS: PCP Nurse Practitioner Family; Referring Provider Obstetrics & Gynecology; Visit Provider Obstetrics & Gynecology
DX: Z12.31 Encounter for screening mammogram for malignant neoplasm of breast (principal); Z80.3 Family history of malignant neoplasm of breast
CPT/HCPCS: 77063; 77067

== ENCOUNTER → 2024-02-24 | Outpatient (CLI) | payer MEDICARE, SELFPAY ==
[2024-02-24 10:27] LABS: Hematocrit 39.7 % (37-47); Hemoglobin 12.8 g/dL (12.0-15.0); Mean Corp Hgb Conc 32.2 g/dL (32-36); Mean Corpuscular Hgb 30.5 pg (27.0-32.0); Mean Corpuscular Volume 94.5 fL (81-99); Mean Platelet Vol. 9.6 fl (6.2-12.0); Platelet Count 328 K/mm3 (150-450); RBC Distribution Width CV 13.1 % (11.6-14.6); RBC Distribution Width SD 44.8 fl (35.1-43.9); White Blood Count 4.8 K/mm3 (4.4-11.0)
[2024-02-24 11:09] LABS: ALB/GLOB Ratio 1.1 RATIO (0.9-2.4); AST(SGOT) 24 U/L (15-37); Alanine Aminotransfer ALT/SGPT 30 U/L (13-56); Albumin, Serum 3.6 g/dL (3.2-5.0); Alkaline Phosphatase 63 U/L (45-117); Anion Gap 5 (5-15); BUN 11 mg/dL (7-18); BUN/Creat Ratio 16.3 RATIO (10-20); Calcium,Total 9.5 mg/dL (8.5-10.1); Chloride 105 mmol/L (98-107); Cholesterol 198 mg/dL (200); Creatinine, Serum 0.68 mg/dL (0.55-1.02); EST Glomerular Filtration Rate 93 mL/min (>60); Est Glom Filt Rate - Afr Amer 112 mL/min (>60); Globulin 3.2 g/dL (2.2-4.2); Glucose 99 mg/dL (74-106); High Density Lipoprotein 55 mg/dL; Potassium 3.9 mmol/L (3.5-5.1); Protein, Total 6.8 g/dL (6.4-8.2); Sodium Level 140 mmol/L (136-145); Triglycerides 160 mg/dL; Very Low Density Lipoprotein 32 mg/dL (5-40)
[2024-02-24 11:16] LABS: Microalbumin,Random Urine < 5.0 mg/L (NO RANGE EST.)
== END | disposition home or self-care (01) ==
LOC: MTLAB 08:00
PROVIDERS: PCP Nurse Practitioner Family; Referring Provider Nurse Practitioner Family; Visit Provider Nurse Practitioner Family
DX: I10 Essential (primary) hypertension (principal); E78.5 Hyperlipidemia, unspecified; E55.9 Vitamin D deficiency, unspecified; D64.9 Anemia, unspecified
CPT/HCPCS: 36415; 80053; 80061; 82043; 82306; 82570; 85027

== ENCOUNTER → 2024-08-27 | Outpatient (CLI) | payer MEDICARE, SELFPAY ==
[2024-08-27 10:12] LABS: Hematocrit 37.3 % (37-47); Hemoglobin 12.2 g/dL (12.0-15.0); Mean Corp Hgb Conc 32.7 g/dL (32-36); Mean Corpuscular Hgb 30.1 pg (27.0-32.0); Mean Corpuscular Volume 92.1 fL (81-99); Mean Platelet Vol. 9.2 fl (6.2-12.0); Platelet Count 362 K/mm3 (150-450); RBC Distribution Width CV 12.5 % (11.6-14.6); RBC Distribution Width SD 42.6 fl (35.1-43.9); Red Blood Count 4.05 M/mm3 (4.2-5.4); White Blood Count 5.3 K/mm3 (4.4-11.0)
[2024-08-27 10:28] LABS: Vitamin D,25 Hydroxy 70.2 ng/mL
[2024-08-27 10:48] LABS: AST(SGOT) 14 U/L (15-37); Alanine Aminotransfer ALT/SGPT 23 U/L (13-56); Albumin, Serum 3.4 g/dL (3.2-5.0); Alkaline Phosphatase 84 U/L (45-117); Anion Gap 8 (5-15); BUN 11 mg/dL (7-18); BUN/Creat Ratio 15.6 RATIO (10-20); Calcium,Total 9.7 mg/dL (8.5-10.1); Chloride 101 mmol/L (98-107); Cholesterol 184 mg/dL (200); EST Glomerular Filtration Rate 88 mL/min (>60); Est Glom Filt Rate - Afr Amer 107 mL/min (>60); Globulin 3.5 g/dL (2.2-4.2); Glucose 101 mg/dL (74-106); High Density Lipoprotein 54 mg/dL; Protein, Total 6.9 g/dL (6.4-8.2); Sodium Level 136 mmol/L (136-145); Triglycerides 122 mg/dL; Very Low Density Lipoprotein 24 mg/dL (5-40)
[2024-08-27 10:52] LABS: Microalbumin,Random Urine < 5.0 mg/L (NO RANGE EST.)
== END | disposition home or self-care (01) ==
PROVIDERS: PCP Nurse Practitioner Family; Referring Provider Nurse Practitioner Family; Visit Provider Nurse Practitioner Family
DX: I10 Essential (primary) hypertension (principal); L40.50 Arthropathic psoriasis, unspecified; E78.5 Hyperlipidemia, unspecified; E55.9 Vitamin D deficiency, unspecified; D64.9 Anemia, unspecified
CPT/HCPCS: 36415; 80053; 80061; 82043; 82306; 82570; 85027

== ENCOUNTER → 2024-12-20 | Outpatient (CLI) | payer MEDICARE, SELFPAY ==
--- NOTE | 2024-12-20 10:40 | BI_ITS ---
PROCEDURE: SCRN MAMM (CAD)W/TESHA BILAT REASON FOR EXAM: F, Age 69 y/o, routine follow-up. Mother with breast cancer. Grandmother with breast cancer. TECHNIQUE: Bilateral screening digital breast tomosynthesis with 2D and 3D images. Computer aided detection. COMPARISON: Prior exam(s) dating back to December 06, 2023.. FINDINGS: The breasts are almost entirely fatty. Stable small benign-appearing bilateral axillary lymph nodes. No suspicious masses, areas of developing architectural distortion, or suspicious calcifications. Stable examination. BI/SCRN MAMM (CAD)W/TESHA BILAT IMPRESSION: BI-RADS 2: BENIGN. RECOMMEND ANNUAL MAMMOGRAPHIC SCREENING. Follow-up code: Routine Follow-up The patient will be notified of the results by letter. Reading Location: [id number]
== END | disposition home or self-care (01) ==
LOC: OPBI 10:38
PROVIDERS: PCP Nurse Practitioner Family; Referring Provider Obstetrics & Gynecology Gynecology; Visit Provider Obstetrics & Gynecology Gynecology
DX: Z12.31 Encounter for screening mammogram for malignant neoplasm of breast (principal); Z80.3 Family history of malignant neoplasm of breast
CPT/HCPCS: 77063; 77067

== ENCOUNTER → 2025-02-22 | Outpatient (CLI) | payer MEDICARE, SELFPAY ==
[2025-02-22 10:27] LABS: Hematocrit 37.8 % (37-47); Hemoglobin 12.5 g/dL (12.0-15.0); Mean Corp Hgb Conc 33.1 g/dL (32-36); Mean Corpuscular Hgb 31.1 pg (27.0-32.0); Mean Platelet Vol. 9.4 fl (6.2-12.0); Platelet Count 296 K/mm3 (150-450); RBC Distribution Width CV 12.5 % (11.6-14.6); RBC Distribution Width SD 43.6 fl (35.1-43.9); Red Blood Count 4.02 M/mm3 (4.2-5.4); White Blood Count 4.5 K/mm3 (4.4-11.0)
[2025-02-22 12:08] LABS: Microalbumin,Random Urine < 12.0 mg/L (NO RANGE EST.); Microalbumin:Creatinine Ratio UNABLE TO CALCULATE mg/g CRE
[2025-02-22 14:30] LABS: ALB/GLOB Ratio 1.6 RATIO (0.9-2.4); AST(SGOT) 29 U/L (<=31); Alanine Aminotransfer ALT/SGPT 33 U/L (<=34); Alkaline Phosphatase 72 U/L (35-104); Anion Gap 10 (5-15); BUN 15 mg/dL (4-19); BUN/Creat Ratio 21.4 RATIO (10-20); Calcium,Total 9.6 mg/dL (7.6-11.0); Carbon Dioxide 26.6 mmol/L (21.0-32.0); Chloride 104 mmol/L (98-108); Cholesterol 192 mg/dL (<=200); Creatinine, Serum 0.71 mg/dL (0.70-1.20); EST Glomerular Filtration Rate 93 (>60); Globulin 2.6 g/dL (2.2-4.2); Glucose 90 mg/dL (70-99); High Density Lipoprotein 48 mg/dL; Low Density Lipoprotein Calc. 115 mg/dL; Potassium 4.1 mmol/L (3.3-5.1); Protein, Total 6.6 g/dL (5.9-8.4); Sodium Level 141 mmol/L (133-145); Total Bilirubin 0.41 mg/dL (0.00-1.30); Triglycerides 145 mg/dL; Very Low Density Lipoprotein 29 mg/dL (5-40); Vitamin D,25 Hydroxy 46.6 ng/mL (30-100)
== END | disposition home or self-care (01) ==
LOC: MTLAB 08:08
PROVIDERS: PCP Nurse Practitioner Family; Referring Provider Nurse Practitioner Family; Visit Provider Nurse Practitioner Family
DX: I10 Essential (primary) hypertension (principal); E78.5 Hyperlipidemia, unspecified; D64.9 Anemia, unspecified; E55.9 Vitamin D deficiency, unspecified; K21.9 Gastro-esophageal reflux disease without esophagitis
CPT/HCPCS: 36415; 80053; 80061; 82043; 82306; 82570; 83735; 85027

== ENCOUNTER → 2025-03-27 | Outpatient (CLI) | payer MEDICARE, SELFPAY ==
[2025-03-27 12:52] LABS: Absolute Lymphocyte Count 1.42 X10^3/uL (0.83-4.51); Absolute Neutrophil Count 3.8 X10^3/uL (2.0-7.7); Basophil# 0.05 X10^3/uL; Basophil% 0.9 % (0-1); Eosinophil# 0.13 X10^3/uL; Eosinophils% 2.3 % (0-5); Hematocrit 37.7 % (37-47); Hemoglobin 12.6 g/dL (12.0-15.0); Lymphocyte # 1.42 X10^3/ul (0.83-4.51); Lymphocyte % 24.8 % (19-41); Mean Corp Hgb Conc 33.4 g/dL (32-36); Mean Corpuscular Hgb 31.3 pg (27.0-32.0); Mean Corpuscular Volume 93.5 fL (81-99); Mean Platelet Vol. 9.9 fl (6.2-12.0); Monocyte# 0.34 X10^3/uL; Monocyte% 5.9 % (0-10); NRBC Flagged by Analyzer 0 % (0-5); Neutrophil # 3.76 X10^3/uL (2.7-7.7); Neutrophil % 65.8 % (47-70); Platelet Count 332 K/mm3 (150-450); RBC Distribution Width CV 12.7 % (11.6-14.6); RBC Distribution Width SD 43.7 fl (35.1-43.9); Red Blood Count 4.03 M/mm3 (4.2-5.4); White Blood Count 5.7 K/mm3 (4.4-11.0)
[2025-03-27 13:19] LABS: AST(SGOT) 24 U/L (<=31); Alanine Aminotransfer ALT/SGPT 24 U/L (<=34); Albumin, Serum 4.1 g/dL (3.4-4.8); Alkaline Phosphatase 79 U/L (35-104); Bilirubin, Direct 0.11 mg/dL (0.00-0.30); Globulin 2.5 g/dL (2.2-4.2); Hepatitis C Antibody Nonreactive (Nonreactive); Protein, Total 6.7 g/dL (5.9-8.4); Total Bilirubin 0.24 mg/dL (0.00-1.30)
[2025-03-27 13:33] LABS: Hepatitis B Surface Antibody Nonreactive
[2025-03-29 17:08] LABS: Hepatitis B Core AB IgM Negative (Negative); Hepatitis Be Ag Negative (Negative); QNTFERON TB Mitogen Value 9.61 IU/mL (.); QNTFERON TB Nil Value 0.07 IU/mL (.); QNTFERON TB1+ Ag Value 0.49 IU/mL (.); QNTFERON TB2+ Ag Value 0.47 IU/mL (.); QNTIFERON TB Positive Criteria Positive (Negative)
== END | disposition home or self-care (01) ==
LOC: MTLAB 10:02
PROVIDERS: PCP Nurse Practitioner Family; Referring Provider Dermatology; Visit Provider Dermatology
DX: L40.0 Psoriasis vulgaris (principal); L40.59 Other psoriatic arthropathy; L82.1 Other seborrheic keratosis; D22.5 Melanocytic nevi of trunk; L57.8 Other skin changes due to chronic exposure to nonionizing radiation; Z71.89 Other specified counseling; Z79.899 Other long term (current) drug therapy
CPT/HCPCS: 36415; 80076; 85025; 86480; 86705; 86706; 86803; 87350

== ENCOUNTER → 2025-04-02 | Outpatient (CLI) | payer MEDICARE, SELFPAY ==
--- OUTSIDE RECORDS SUMMARY | 2025-04-02 22:05 | XMS RPT_ITS | CCD ---
Author Organization [facility] Care Team Providers Care Dry Talc Racker Name Role Phone ROLDAN WOOD CARVER - DEBONING TEAM LEADER, ADAMS Ame Primary Care Phys ician ROLDAN WOOD CARVER - DEBONING TEAM LEADER, ADAMS Mccloud Primary Care U navailable MAST WOOD CARVER-DEBONING TEAM LEADER, MANJIT Attending Edwige SPIVEY MD, REGINA Attending Unavailable ROLDAN WOOD CARVER - DEBONING TEAM LEADER, ADAMS Mccloud Primary Care U sherrie SPIVEY MD, REGINA Consulting Clint SPIVEY MD, REGINA Attending Unavailable ROLDAN WOOD CARVER - DEBONING TEAM LEADER, ADAMS Mccloud Primary Care U navailable ROLDAN WOOD CARVER - DEBONING TEAM LEADER, ADAMS Mccloud Primary Care U navailable ROLDAN WOOD CARVER - DEBONING TEAM LEADER, ADAMS Mccloud Attending U navailable Clinch SOLUTIONS DEVELOPMENT ANALYST-C, Adams Paz Primary Care Provi melissa Nancy DE LA PAZ, Dr. Bertrand Attending Provider [phone] Nancy DE LA PAZ, Dr. Bertrand Referring Provider Roldan SOLUTIONS DEVELOPMENT ANALYST-C, Adams Paz Attending Provider Clinch SOLUTIONS DEVELOPMENT ANALYST-C, Adams Paz Referring Provider Elza Adam Attending Unavailable Elza Adam Referring Unavailable Clinch SOLUTIONS DEVELOPMENT ANALYST, Adams Paz Primary Care Unav ailable Clinch SOLUTIONS DEVELOPMENT ANALYST, Adams Paz Attending Unav ailable Roldan SOLUTIONS DEVELOPMENT ANALYST, Adams Paz Referring Unav ailable Clinch SOLUTIONS DEVELOPMENT ANALYST, Adams Paz Primary Care Unav ailable Clinch SOLUTIONS DEVELOPMENT ANALYST, Adams Paz Primary Care Unav ailable Urbano Pavon Attending Unavailable Urbano Pavon Referring Unavailable Roldan SOLUTIONS DEVELOPMENT ANALYST, Adams Paz Primary Care Unav ailable Clinch SOLUTIONS DEVELOPMENT ANALYST, Adams Paz Attending Unav ailable Roldan SOLUTIONS DEVELOPMENT ANALYST, Adams Paz Referring Unav ailable Allergies Allergy Classification Reported Allergen(s) Allergy Type Date of Onset Reaction(s) Facility (2 sources) Penicillins; Translations: [penicillins] Drug allergy Unknown (qualifier value) [facility] Medications Current Medications Medication Drug Class(es) Dates Sig (Normalized) Sig (Original) hydroCHLOROthiazide 25 mg oral tablet (2 sources) Thiazide Diuretic Start: hydroCHLOROthiazide 25 mg oral tablet Dose : 25 mg = 1 tab(s), Oral, qDay, # 90 tab(s), 0 Refill(s), Pharmacy: [facility], 175, cm, 08/16/23 13:56:00 EDT, Height, kg, 08/16/23 13:56:00 EDT, Dosing Weight Start Date: 08/19/23 Status: Ordered Start: 09-03-2022 hydroCHLOROthi azide 25 mg oral tablet Dose : 25 mg = 1 tab(s), Oral, qDay, # 90 tab(s), 1 Refill(s), Pharmacy: [facility] ([facility]), 174, cm, 09/03/22 10:35:00 EST, Height, kg, 09/03/22 10:35:00 EST, Dosing Weight Start Date: 09/03/22 Status: Ordered lisinopril 40 mg oral tablet (2 sources) Angiotensin Converting Enzyme Inhibitor Start: 03-04-2023 lisinopril 40 mg ora l tablet Dose : 40 mg = 1 tab(s), Oral, qDay, # 90 tab(s), 1 Refill(s), Pharmacy: [facility] ([facility] ), 175, cm, 03/04/23 10:56:00 EDT, Height, kg, 03/04/23 10:56:00 EDT, Dosing Weight Start Date: 03/04/23 Status: Ordered Start: 09-03-2022 lisinopril 40 mg oral tablet Dose : 40 mg = 1 tab(s), Oral, qDay, # 90 tab(s), 1 Refill(s), Pharmacy: [facility] ([facility]), 174, cm, 09/03/22 10:35:00 EST, Height, kg, 09/03/22 10:35:00 EST, Dosing Weight Start Date: 09/03/22 Status: Ordered magnesium oxide 250 mg oral tablet (2 sources) Start: 08-28-2019 take 1 mg by mouth once daily Magnesium 250 mg tablet mg = tab(s), Oral, qDay, 0 Refill(s) Start Date: 08/28/19 Status: Ordered Multivitamin preparation (2 sources) Start: 08-28-2019 take 1 tablet by mouth once daily Multivitamin Dose = 1 tab(s), Oral, Daily, 0 Refill(s) Start Date: 08/28/19 Status: Ordered naproxen 500 mg oral tablet (2 sources) Nonsteroidal Anti-inflammatory Drug Start: 03-04-2023 naproxen 500 mg oral tablet Dose : 500 mg = 1 tab(s), Oral, BID, # 180 tab(s), 1 Refill(s), Pharmacy: [facility] ([facility] ), 175, cm, 03/04/23 10:56:00 EDT, Height, kg, 03/04/23 10:56:00 EDT, Dosing Weight Start Date: 03/04/23 Status: Ordered Start: 09-03-2022 naproxen 500 m g oral tablet Dose : 500 mg = 1 tab(s), Oral, BID, # 180 tab(s), 1 Refill(s), Pharmacy: [facility] ([facility]), 174, cm, 09/03/22 10:35:00 EST, Height, kg, 09/03/22 10:35:00 EST, Dosing Weight Start Date: 09/03/22 Status: Ordered omeprazole 40 mg delayed release oral capsule (2 sources) Proton Pump Inhibitor Start: 03-04-2023 omeprazo le 40 mg oral delayed release capsule Dose : 40 mg = 1 cap(s), Oral, qDay, # 90 cap(s), 1 Refill(s), Pharmacy: [facility] ([facility] ), 175, cm, 03/04/23 10:56:00 EDT, Height, kg, 03/04/23 10:56:00 EDT, Dosing Weight Start Date: 03/04/23 Status: Ordered Start: 09-03-2022 omeprazole 40 mg oral delayed release capsule Dose : 40 mg = 1 cap(s), Oral, qDay, # 90 cap(s), 1 Refill(s), Pharmacy: [facility] ([facility]), 174, cm, 09/03/22 10:35:00 EST, Height, kg, 09/03/22 10:35:00 EST, Dosing Weight Start Date: 09/03/22 Status: Ordered Completed/Discontinued Medications Medication Drug Class(es) Dates Sig (Normalized) Sig (Original) ergocalciferol 1.25 mg oral capsule (2 sources) Provitamin D2 Compound Start: 03-04-2023 End: 06-02-2023 ergocalciferol 50,000 intl units (1.25 mg) oral capsule Dose : 50,000 International_Unit = 1 cap(s), Oral, every other week, # 7 cap(s), 0 Refill(s), Pharmacy: [facility] ([facility] ), 175, cm, 03/04/23 10:56:00 EDT, Height, kg, 03/04/23 10:56:00 EDT, Dosing Weight Start Date: 03/04/23 Stop Date: 06/02/23 Status: Ordered Start: 09-03-2022 End: 03-02-2023 ergocalciferol 50,000 intl u nits (1.25 mg) oral capsule Dose : 50,000 International_Unit = 1 cap(s), Oral, every other week, # 7 cap(s), 1 Refill(s), Pharmacy: [facility] ([facility]), 174, cm, 09/03/22 10:35:00 EST, Height, kg, 09/03/22 10:35:00 EST, Dosing Weight Start Date: 09/03/22 Stop Date: 03/02/23 Status: Ordered Problems Problem Classification Problem Date Documented Da te Episodic/Chronic Abdominal hernia (1 source) Umbilical hernia 08-16-2023 Episodic Administrative/social admission (1 source) Other specified counseling; Translations: [Other specified counseling] Onset: 5 Episodic Allergic reactions (1 source) Other skin changes due to chronic exposure to nonionizing radiation; Translations: [Other skin changes due to chronic exposure to nonionizing radiation] Onset: 5 Episodic Deficiency and other anemia (2 sources) Anemia 09-01-2021 Episodic Disorders of lipid metabolism (2 sources) Hyperlipidemia 2019 Chronic Esophageal disorders (2 sources) Gastroesophageal reflux disease 02-26-2020 Chronic Essential hypertension (5 sources) Hypertensive disorder; Translations: [Essential (primary) hypertension] Onset: 3 08-28-2019 Chronic Heart valve disorders (2 sources) Heart murmur 02-26-2020 Episodic Nausea and vomiting (1 source) Nausea 08-16-2023 Episodic Nutritional deficiencies (2 sources) Vitamin D deficiency 2019 Chronic Other aftercare (1 source) Other termite exterminator (current) drug therapy; Translations: [Other nursing home (current) drug therapy] Onset: 5 Episodic Other and unspecified benign neoplasm (1 source) Hemangioma of skin and subcutaneous tissue; Translations: [Hemangioma of skin and subcutaneous tissue] Onset: 5 Episodic Other and unspecified benign neoplasm (1 source) Melanocytic nevi of trunk; Translations: [Melanocytic nevi of trunk] Onset: 5 Episodic Other gastrointestinal disorders (1 source) Abdominal bloating 08-16-2023 Episodic Other gastrointestinal disorders (1 source) Diarrhea 08-16-2023 Episodic Other inflammatory condition of skin (2 sources) Psoriatic arthritis 2019 Chronic Other inflammatory condition of skin (1 source) Psoriasis vulgaris; Translations: [Psoriasis vulgaris] Onset: 5 Chronic Other inflammatory condition of skin (1 source) Other psoriatic arthropathy; Translations: [Other psoriatic arthropathy] Onset: 5 Chronic Other screening for suspected conditions (not mental disorders or infectious disease) (1 source) Encounter for screening mammogram for malignant neoplasm of breast; Translations: [Encounter for screening mammogram for malignant neoplasm of breast] Onset: 5 Episodic Other skin disorders (1 source) Other seborrheic keratosis; Translations: [Other seborrheic keratosis] Onset: 5 Episodic Residual codes; unclassified (2 sources) Increased body [...] Results Test Name Value Interpretation Reference Range Facility Hepatitis B Core AB IgMon HEP B CORE,IgM Negative Normal Negative [facility] Comment on above: Result Comment: Perf ormed at: - [facility] [id number] Diathermy Equipment Repairer: Gio Brice PhD, Phone: [phone] Performed By: #### L 500.4100, L506.1001, L501.5200, L502.0250, L100.0500, L500.4050 #### [facility] [address] [place], [place], [id number] Hepatitis Be Agon 03-29-2025 HEP Be AG Negative Normal Negative [facility] Comment on above: Performed By: #### L 500.4100, L506.1001, L501.5200, L502.0250, L100.0500, L500.4050 #### [facility] [address] [place], [place], [id number] Quantiferon TB-Gold+on 03-29 QFT MITOGEN MILTON 9.61 IU/mL Normal . [facility] Comment on above: Performed By: #### L 500.4100, L506.1001, L501.5200, L502.0250, L100.0500, L500.4050 #### [facility] [address] [place], [place], [id number] QFT NIL VALUE 0.07 IU/mL Normal . [facility] Comment on above: Performed By: #### L 500.4100, L506.1001, L501.5200, L502.0250, L100.0500, L500.4050 #### [facility] [address] [place], [address] QFT TB GOLD+ Comment Normal . [facility] Comment on above: Result Comment: Humberto tiFERON-TB Gold Plus is a qualitative indirect test for M tuberculosis infection (including disease) and is intended for use in conjunction with risk assessment, radiography, and other medical and diagnostic evaluations. The QuantiFERON-TB Gold Plus result is determined by subtracting the Nil value from either TB antigen (Ag) value. The Mitogen tube serves as a control for the test. Performed By: #### L 500.4100, L506.1001, L501.5200, L502.0250, L100.0500, L500.4050 #### [facility] [address], [address] QFT TB POS CRIT Positive Abnormal Negative [facility] Comment on above: Result Comment: Sherice new Requested Flag A response to M tuberculosis antigens has been detected. If patient is at low risk for Tuberculosis, the result should be interpreted with caution and repeat testing on a new specimen is recommended (ATS/IDSA/CDC Clinical Practice Guidelines, 2017). False positives can also occur due to infection by M kansasii, M szulgai, or M marinum. The specimen received for QuantiFERON testing was incubated by the ordering institution. Specific procedures outlined in our Directory of Services and in the package insert for the QuantiFERON Gold (In Tube) test must be followed to enable for proper stimulation of cells for the production of interferon gamma. Chemiluminescence immunoassay methodology Performed By: #### L 500.4100, L506.1001, L501.5200, L502.0250, L100.0500, L500.4050 #### [facility] [address] [place], [address] QFT TB1+ AG MILTON 0.49 IU/mL Normal . [facility] Comment on above: Performed By: #### L 500.4100, L506.1001, L501.5200, L502.0250, L100.0500, L500.4050 #### [facility] [address] [place], [address] QFT TB2+ AG MILTON 0.47 IU/mL Normal . [facility] Comment on above: Performed By: #### L 500.4100, L506.1001, L501.5200, L502.0250, L100.0500, L500.4050 #### [facility] [address] [place], [address] CBC W/Diff, Automatedon 03-17 Absolute Lymph 1.42 X10 3/uL Normal 0.83-4.51 [facility] Comment on above: Performed By: #### L 500.4100, L506.1001, L501.5200, L502.0250, L100.0500, L500.4050 #### [facility] [address] [place], [address] Absolute Neut 3.8 X10 3/uL Normal 2.0-7.7 [facility] Comment on above: Performed By: #### L 500.4100, L506.1001, L501.5200, L502.0250, L100.0500, L500.4050 #### [facility] [address] [place], [address] Basophils/100 WBC (Bld) 0.9 % Normal 0-1 [facility] Comment on above: Performed By: #### L 500.4100, L506.1001, L501.5200, L502.0250, L100.0500, L500.4050 #### [facility] [address] [place], [address] Eosinophils/100 WBC (Bld) 2.3 % Normal 0-5 [facility] Comment on above: Performed By: #### L 500.4100, L506.1001, L501.5200, L502.0250, L100.0500, L500.4050 #### [facility] [address] [place], [address] Erythrocyte distribution width (RBC) [Ratio] 12.7 % Normal 11.6-14.6 [facility] Comment on above: Performed By: #### L 500.4100, L506.1001, L501.5200, L502.0250, L100.0500, L500.4050 #### [facility] [address] [place], [address] Hematocrit (Bld) [Volume fraction] 37.7 % Normal 37-47 [facility] Comment on above: Performed By: #### L 500.4100, L506.1001, L501.5200, L502.0250, L100.0500, L500.4050 #### [facility] [address] [place], [address] Hemoglobin (Bld) [Mass/Vol] 12.6 g/dL Normal 12.0-15.0 [facility] Comment on above: Performed By: #### L 500.4100, L506.1001, L501.5200, L502.0250, L100.0500, L500.4050 #### [facility] [address] [place], [address] IG% 0.300 Normal 0.0-0.9 [facility] Comment on above: Result Comment: IG% - Immature Granulocytes (promyelocytes, myelocytes and metamyelocytes) > 1% indicates that a LEFT SHIFT is Present. Performed By: #### L 500.4100, L506.1001, L501.5200, L502.0250, L100.0500, L500.4050 #### [facility] [address] [place], [address] Lymphocytes/100 WBC (Bld) 24.8 % Normal 19-41 [facility] Comment on above: Performed By: #### L 500.4100, L506.1001, L501.5200, L502.0250, L100.0500, L500.4050 #### [facility] [address] [place], [address] MCH (RBC) [Entitic mass] 31.3 pg Normal 27.0-32.0 [facility] Comment on above: Performed By: #### L 500.4100, L506.1001, L501.5200, L502.0250, L100.0500, L500.4050 #### [facility] [address] [place], [address] MCHC (RBC) [Mass/Vol] 33.4 g/dL Normal 32-36 [facility] Comment on above: Performed By: #### L 500.4100, L506.1001, L501.5200, L502.0250, L100.0500, L500.4050 #### [facility] [address] [place], [address] MCV (RBC) [Entitic vol] 93.5 fL Normal 81-99 [facility] Comment on above: Performed By: #### L 500.4100, L506.1001, L501.5200, L502.0250, L100.0500, L500.4050 #### [facility] [address], [address] Monocytes/100 WBC (Bld) 5.9 % Normal 0-10 [facility] Comment on above: Performed By: #### L 500.4100, L506.1001, L501.5200, L502.0250, L100.0500, L500.4050 #### [facility] [address] [place], [address] Neutrophils/100 WBC (Bld) 65.8 % Normal 47-70 [facility] Comment on above: Performed By: #### L 500.4100, L506.1001, L501.5200, L502.0250, L100.0500, L500.4050 #### [facility] [address] [place], [address] Nucleated RBC (Bld) [#/Vol] 0 10*3/uL Normal 0-5 [facility] Comment on above: Performed By: #### L 500.4100, L506.1001, L501.5200, L502.0250, L100.0500, L500.4050 #### [facility] [address] [place], [address] Platelet mean volume (Bld) [Entitic vol] 9.9 fL Normal 6.2-12.0 [facility] Comment on above: Performed By: #### L 500.4100, L506.1001, L501.5200, L502.0250, L100.0500, L500.4050 #### [facility] [address] [place], [address] Platelets (Bld) [#/Vol] 332 10*3/uL Normal 150-450 [facility] Comment on above: Performed By: #### L 500.4100, L506.1001, L501.5200, L502.0250, L100.0500, L500.4050 #### [facility] [address] [place], [address] RBC (Bld) [#/Vol] 4.03 10*6/uL Low 4.2-5.4 [facility] Comment on above: Performed By: #### L 500.4100, L506.1001, L501.5200, L502.0250, L100.0500, L500.4050 #### [facility] [address] [place], [address] RDW SD 43.7 fl Normal 35.1-43.9 [facility] Comment on above: Performed By: #### L 500.4100, L506.1001, L501.5200, L502.0250, L100.0500, L500.4050 #### [facility] [address] [place], [place], [address] WBC (Bld) [#/Vol] 5.7 10*3/uL Normal 4.4-11.0 [facility] Comment on above: Performed By: #### L 500.4100, L506.1001, L501.5200, L502.0250, L100.0500, L500.4050 #### [facility] [address] [place], [address] Hepatitis B Surface Antibody on 03-27-2025 HEP B Surf Ab Non-Reactive Normal [facility] Comment on above: Result Comment: <8.5 mIU/mL: Non-Reactive 8.5<= x <11.5 mIU/mL: Indeterminate >=11.5 mIU/mL: Reactive Non Reactive: Inconsistent with immunity less than <10 mIU/mL Reactive: Consistent with immunity greater than or equal to 10 mIU/mL Performed By: #### L 500.4100, L506.1001, L501.5200, L502.0250, L100.0500, L500.4050 #### [facility] [address] [place], [address] Hepatitis C Antibodyon 03-27 Hepatitis C Ab Non-Reactive Normal Nonreactive [facility] Comment on above: Result Comment: Reac tive: Presumptive evidence of antibodies to HCV. Follow CDC recommendations for supplemental testing. Non-Reactive: Antibodies to HCV were not detected; does not exclude the possibility of exposure to HCV Reactive Results are presumptive evidence of antibodies to HCV. Follow CDC recommendations for supplemental testing. Order confirmation testing: HCV Quant by PCR testing - HCVPCR #[id number] Non Reactive: < 0.8 Equivocal: >/= 0.8 to < 1.0 Reactive: >/= 1.0 The CDC requires that a reactive/equivocal HCV antibody result be sent out for confirmation. HCV Quant by PCR testing. Performed By: #### L 500.4100, L506.1001, L501.5200, L502.0250, L100.0500, L500.4050 #### [facility] [address] [place], [address] Liver Profileon 03-27-2025 Albumin [Mass/Vol] 4.1 g/dL Normal 3.4-4.8 [facility] Comment on above: Performed By: #### L 500.4100, L506.1001, L501.5200, L502.0250, L100.0500, L500.4050 #### [facility] [address] [place], [address] ALK PHOS 79 U/L Normal 35-104 [facility] Comment on above: Performed By: #### L 500.4100, L506.1001, L501.5200, L502.0250, L100.0500, L500.4050 #### [facility] [address] [place], [address] ALT [Catalytic activity/Vol] 24 U/L Normal <=34 [facility] Comment on above: Performed By: #### L 500.4100, L506.1001, L501.5200, L502.0250, L100.0500, L500.4050 #### [facility] [address] [place], [address] AST [Catalytic activity/Vol] 24 U/L Normal <=31 [facility] Comment on above: Performed By: #### L 500.4100, L506.1001, L501.5200, L502.0250, L100.0500, L500.4050 #### [facility] [address] [place], [address] Bilirubin [Mass/Vol] 0.24 mg/dL Normal 0.00-1.30 [facility] Comment on above: Performed By: #### L 500.4100, L506.1001, L501.5200, L502.0250, L100.0500, L500.4050 #### [facility] [address] [place], [address] Bilirubin.direct [Mass/Vol] 0.11 mg/dL Normal 0.00-0.30 [facility] Comment on above: Performed By: #### L 500.4100, L506.1001, L501.5200, L502.0250, L100.0500, L500.4050 #### [facility] [address] [place], [address] Globulin (S) [Mass/Vol] 2.5 g/dL Normal 2.2-4.2 [facility] Comment on above: Performed By: #### L 500.4100, L506.1001, L501.5200, L502.0250, L100.0500, L500.4050 #### [facility] [address] [place], [address] T PROT 6.7 g/dL Normal 5.9-8.4 [facility] Comment on above: Performed By: #### L 500.4100, L506.1001, L501.5200, L502.0250, L100.0500, L500.4050 #### [facility] [address] [place], [address] Anion gap in Serum or Plasma Ordered By: Adams Montilla on 02-22-2025 Anion gap [Moles/Vol] 10 mmol/L 5-15 [facility] BUN/creatinine ratioOrdered By: Adams Montilla on 02-22-2025 Urea nitrogen/Creatinine [Mass ratio] 21.4 mg/mg High 10-20 [facility] Bilirubin, totalOrdered By: Adams Montilla on 02-22-2025 Bilirubin [Mass/Vol] 0.41 mg/dL 0.00-1.30 [facility] CBC-Complete Blood Cnt No Di ffon 02-22-2025 Erythrocyte distribution width (RBC) [Ratio] 12.5 % Normal 11.6-14.6 [facility] Comment on above: Performed By: #### L 500.4100, L506.1001, L501.5200, L502.0250, L100.0500, L500.4050 #### [facility] [address] [place], [address] Hematocrit (Bld) [Volume fraction] 37.8 % Normal 37-47 [facility] Comment on above: Performed By: #### L 500.4100, L506.1001, L501.5200, L502.0250, L100.0500, L500.4050 #### [facility] [address] [place], [address] Hemoglobin (Bld) [Mass/Vol] 12.5 g/dL Normal 12.0-15.0 [facility] Comment on above: Performed By: #### L 500.4100, L506.1001, L501.5200, L502.0250, L100.0500, L500.4050 #### [facility] [address] [place], [address] MCH (RBC) [Entitic mass] 31.1 pg Normal 27.0-32.0 [facility] Comment on above: Performed By: #### L 500.4100, L506.1001, L501.5200, L502.0250, L100.0500, L500.4050 #### [facility] [address] [place], [address] MCHC (RBC) [Mass/Vol] 33.1 g/dL Normal 32-36 [facility] Comment on above: Performed By: #### L 500.4100, L506.1001, L501.5200, L502.0250, L100.0500, L500.4050 #### [facility] [address] [place], [address] MCV (RBC) [Entitic vol] 94.0 fL Normal 81-99 [facility] Comment on above: Performed By: #### L 500.4100, L506.1001, L501.5200, L502.0250, L100.0500, L500.4050 #### [facility] [address] [place], [address] Platelet mean volume (Bld) [Entitic vol] 9.4 fL Normal 6.2-12.0 [facility] Comment on above: Performed By: #### L 500.4100, L506.1001, L501.5200, L502.0250, L100.0500, L500.4050 #### [facility] [address] [place], [address] Platelets (Bld) [#/Vol] 296 10*3/uL Normal 150-450 [facility] Comment on above: Performed By: #### L 500.4100, L506.1001, L501.5200, L502.0250, L100.0500, L500.4050 #### [facility] [address] [place], [address] RBC (Bld) [#/Vol] 4.02 10*6/uL Low 4.2-5.4 [facility] Comment on above: Performed By: #### L 500.4100, L506.1001, L501.5200, L502.0250, L100.0500, L500.4050 #### [facility] [address] [place], [address] RDW SD 43.6 fl Normal 35.1-43.9 [facility] Comment on above: Performed By: #### L 500.4100, L506.1001, L501.5200, L502.0250, L100.0500, L500.4050 #### [facility] [address] [place], [address] WBC (Bld) [#/Vol] 4.5 10*3/uL Normal 4.4-11.0 [facility] Comment on above: Performed By: #### L 500.4100, L506.1001, L501.5200, L502.0250, L100.0500, L500.4050 #### [facility] [address] [place], [place], [id number] Calculated very low density lipoprotein (VLDL) cholesterol measurementOrdered By: Adams Montilla on 02-22-2025 Calculated very low density lipoprotein (VLDL) cholesterol measurement 29 mg/dL 5-40 [facility] Carbon dioxide, total [Moles /volume] in Central venous bloodOrdered By: Adams Montilla on 02-22-2025 CO2 [Moles/Vol] 26.6 mmol/L 21.0-32.0 [facility] Chloride assayOrdered By: Hayde Montilla on 02-22-2025 Chloride [Moles/Vol] 104 mmol/L 98-108 [facility] Comprehensive Metabolic Prof ilon 02-22-2025 Albumin [Mass/Vol] 4.0 g/dL Normal 3.4-4.8 [facility] Comment on above: Performed By: #### L 500.4100, L506.1001, L501.5200, L502.0250, L100.0500, L500.4050 #### [facility] [address] [place], [address] Albumin/Globulin [Mass ratio] 1.6 {ratio} Normal 0.9-2.4 [facility] Comment on above: Performed By: #### L 500.4100, L506.1001, L501.5200, L502.0250, L100.0500, L500.4050 #### [facility] [address] [place], [address] ALK PHOS 72 U/L Normal 35-104 [facility] Comment on above: Performed By: #### L 500.4100, L506.1001, L501.5200, L502.0250, L100.0500, L500.4050 #### [facility] [address] [place], [address] ALT [Catalytic activity/Vol] 33 U/L Normal <=34 [facility] Comment on above: Performed By: #### L 500.4100, L506.1001, L501.5200, L502.0250, L100.0500, L500.4050 #### [facility] [address] [place], [address] AST [Catalytic activity/Vol] 29 U/L Normal <=31 [facility] Comment on above: Performed By: #### L 500.4100, L506.1001, L501.5200, L502.0250, L100.0500, L500.4050 #### [facility] [address] [place], [address] Bilirubin [Mass/Vol] 0.41 mg/dL Normal 0.00-1.30 [facility] Comment on above: Performed By: #### L 500.4100, L506.1001, L501.5200, L502.0250, L100.0500, L500.4050 #### [facility] [address] [place], [address] BUN/CRE 21.4 RATIO High 10-20 [facility] Comment on above: Performed By: #### L 500.4100, L506.1001, L501.5200, L502.0250, L100.0500, L500.4050 #### [facility] [address] [place], [address] Calcium [Mass/Vol] 9.6 mg/dL Normal 7.6-11.0 [facility] Comment on above: Performed By: #### L 500.4100, L506.1001, L501.5200, L502.0250, L100.0500, L500.4050 #### [facility] [address] [place], [address] Chloride [Moles/Vol] 104 mmol/L Normal 98-108 [facility] Comment on above: Performed By: #### L 500.4100, L506.1001, L501.5200, L502.0250, L100.0500, L500.4050 #### [facility] [address] [place], [address] CO2 [Moles/Vol] 26.6 mmol/L Normal 21.0-32.0 [facility] Comment on above: Performed By: #### L 500.4100, L506.1001, L501.5200, L502.0250, L100.0500, L500.4050 #### [facility] [address] [place], [address] Creatinine [Mass/Vol] 0.71 mg/dL Normal 0.70-1.20 [facility] Comment on above: Performed By: #### L 500.4100, L506.1001, L501.5200, L502.0250, L100.0500, L500.4050 #### [facility] [address] [place], [address] GAP 10 Normal 5-15 [facility] Comment on above: Performed By: #### L 500.4100, L506.1001, L501.5200, L502.0250, L100.0500, L500.4050 #### [facility] [address] [place], [address] GFR/1.73 sq M.predicted among non-blacks MDRD (S/P/Bld) [Vol rate/Area] 93 mL/min/{1.73_m2} Normal >60 [facility] Comment on above: Result Comment: mL/m in/1.73m2 CKD-EPI Creatinine Equation (2020) Performed By: #### L 500.4100, L506.1001, L501.5200, L502.0250, L100.0500, L500.4050 #### [facility] [address] [place], [address] Globulin (S) [Mass/Vol] 2.6 g/dL Normal 2.2-4.2 [facility] Comment on above: Performed By: #### L 500.4100, L506.1001, L501.5200, L502.0250, L100.0500, L500.4050 #### [facility] [address] [place], [address] Glucose [Mass/Vol] 90 mg/dL Normal 70-99 [facility] Comment on above: Performed By: #### L 500.4100, L506.1001, L501.5200, L502.0250, L100.0500, L500.4050 #### [facility] [address] [place], [address] Potassium [Moles/Vol] 4.1 mmol/L Normal 3.3-5.1 [facility] Comment on above: Performed By: #### L 500.4100, L506.1001, L501.5200, L502.0250, L100.0500, L500.4050 #### [facility] [address] [place], [address] Sodium [Moles/Vol] 141 mmol/L Normal 133-145 [facility] Comment on above: Performed By: #### L 500.4100, L506.1001, L501.5200, L502.0250, L100.0500, L500.4050 #### [facility] [address] [place], [address] T PROT 6.6 g/dL Normal 5.9-8.4 [facility] Comment on above: Performed By: #### L 500.4100, L506.1001, L501.5200, L502.0250, L100.0500, L500.4050 #### [facility] [address] [place], [address] Urea nitrogen [Mass/Vol] 15 mg/dL Normal 4-19 [facility] Comment on above: Performed By: #### L 500.4100, L506.1001, L501.5200, L502.0250, L100.0500, L500.4050 #### [facility] [address] [place], [address] Erythrocyte distribution wid th ratioOrdered By: Adams Montilla on 02-22-2025 Erythrocyte distribution width (RBC) [Ratio] 12.5 % 11.6-14.6 [facility] Erythrocyte distribution wid th standard deviationOrdered By: Adams Montilla on 02-22-2025 Erythrocyte distribution width (RBC) [Ratio] 43.6 fl 35.1-43.9 [facility] Glomerular filtration rate ( GFR) estimation/1.73 sq m using serum, plasma, or whole bOrdered By: Adams Montilla on 02-22-2025 GFR/1.73 sq M.predicted among non-blacks MDRD (S/P/Bld) [Vol rate/Area] 93 mL/min/{1.73_m2} >60 [facility] Comment on above: mL/min/1.73m2 CKD-EP I Creatinine Equation (2020) Hematocrit Auto (Bld) [Volum e fraction]Ordered By: Adams Montilla on 02-22-2025 Hematocrit (Bld) [Volume fraction] 37.8 % 37-47 [facility] Hemoglobin measurementOrdere d By: Adams Montilla on 02-22-2025 Hemoglobin (Bld) [Mass/Vol] 12.5 g/dL 12.0-15.0 [facility] LDL calc ser/plasOrdered By: Adams Montilla on 02-22-2025 Cholesterol in LDL [Mass/Vol] 115 mg/dL [facility] Comment on above: Rhdrvjbkbg=067-517 m g/dL & Higher Swnb=184 mg/dL or greater Laboratory - Chemistry and C hemistry - challengeOrdered By: Adams Montilla on 02-22-2025 AST [Catalytic activity/Vol] 29 U/L <32 [facility] Lipid Profileon 02-22-2025 CHOL:HDL 4.00 Normal [facility] Comment on above: Performed By: #### L 500.4100, L506.1001, L501.5200, L502.0250, L100.0500, L500.4050 #### [facility] [address] [place], [address] Cholesterol [Mass/Vol] 192 mg/dL Normal <=200 [facility] Comment on above: Result Comment: Chol esterol level, Desirable <200 mg/dL Borderline high cholesterol 200-239 mg/dL High cholesterol >=240 mg/dL Recommendations of the NCEP Adult Treatment Panel for the following risk-cutoff thresholds for the [place] population. Performed By: #### L 500.4100, L506.1001, L501.5200, L502.0250, L100.0500, L500.4050 #### [facility] [address] [place], [address] Cholesterol in HDL [Mass/Vol] 48 mg/dL Normal [facility] Comment on above: Result Comment: [place] Cholesterol Education Program (NCEP) guidelines: <40 mg/dL: Low HDL-cholesterol (major risk factor for CHD) >= 60 mg/dL: High HDL-cholesterol (negative risk factor for CHD) HDL-cholesterol is affected by a number of factors, e.g. smoking, exercise, hormones, sex and age. Performed By: #### L 500.4100, L506.1001, L501.5200, L502.0250, L100.0500, L500.4050 #### [facility] [address] [place], [address] Cholesterol in LDL [Mass/Vol] 115 mg/dL Normal [facility] Comment on above: Result Comment: Bord yvtnvw=293-539 mg/dL Higher Nyom=827 mg/dL or greater Performed By: #### L 500.4100, L506.1001, L501.5200, L502.0250, L100.0500, L500.4050 #### [facility] [address] [place], [address] Cholesterol in VLDL [Mass/Vol] 29 mg/dL Normal 5-40 [facility] Comment on above: Performed By: #### L 500.4100, L506.1001, L501.5200, L502.0250, L100.0500, L500.4050 #### [facility] [address] [place], [address] Triglyceride [Mass/Vol] 145 mg/dL Normal [facility] Comment on above: Result Comment: The drugs N-Acetylcysteine and Metamizole may falsely depress this assay. Normal range: <150 mg/dL Borderline High: 150-199 mg/dL High: 200-499 mg/dL Very High: >500 mg/dL Performed By: #### L 500.4100, L506.1001, L501.5200, L502.0250, L100.0500, L500.4050 #### [facility] [address] [place], [place], [id number] MCV (mean corpuscular volume ) determinationOrdered By: Adams Montilla on 02-22-2025 MCV (RBC) [Entitic vol] 94.0 fL 81-99 [facility] Magnesiumon 02-22-2025 Magnesium [Mass/Vol] 2.0 mg/dL Normal 1.5-2.2 [facility] Comment on above: Performed By: #### L 500.4100, L506.1001, L501.5200, L502.0250, L100.0500, L500.4050 #### [facility] [address] [place], [place], [address] Magnesium measurement (mass/ volume)Ordered By: Adams Montilla on 02-22-2025 Magnesium (Unsp spec) [Mass/Vol] 2.0 mg/dL 1.5-2.2 [facility] Mean corpuscular hemoglobin (MCH) determinationOrdered By: Adams Montilla on 02-22-2025 MCH (RBC) [Entitic mass] 31.1 pg 27.0-32.0 [facility] Mean corpuscular hemoglobin concentration (MCHC) determinationOrdered By: Adams Montilla on 02-22-2025 MCHC (RBC) [Mass/Vol] 33.1 g/dL 32-36 [facility] Mean platelet volume determi nationOrdered By: Adams Montilla on 02-22-2025 Platelet mean volume (Bld) [Entitic vol] 9.4 fL 6.2-12.0 [facility] Microalb:Creat Ratio,Random URon 02-22-2025 Creatinine [Mass/Vol] 169.00 mg/dL Normal 28.00-217.00 [facility] Comment on above: Performed By: #### L 500.4100, L506.1001, L501.5200, L502.0250, L100.0500, L500.4050 #### [facility] [address] [place], [place], [id number] MALB:CREAT UNABLE TO CALCULATE Normal [facility] Comment on above: Performed By: #### L 500.4100, L506.1001, L501.5200, L502.0250, L100.0500, L500.4050 #### [facility] [address] [place], [address] MICROALBUMIN,UR < 12.0 Normal NO RANGE EST. [facility] Comment on above: Performed By: #### L 500.4100, L506.1001, L501.5200, L502.0250, L100.0500, L500.4050 #### [facility] [address] [place], [place], [id number] Microalbumin/creat ratio urO rdered By: Adams Montilla on 02-22-2025 Urine microalbumin/creatinine ratio measurement UNABLE TO CALCULATE mg/g CRE [facility] Platelet countOrdered By: Hayde Montilla on 02-22-2025 Platelets (Bld) [#/Vol] 296 10*3/uL 150-450 [facility] Potassium measurement (mass/ volume)Ordered By: Adams Montilla on 02-22-2025 Potassium (Unsp spec) [Mass/Vol] 4.1 mmol/L 3.3-5.1 [facility] RBC Auto (Bld) [#/Vol]Ordere d By: Adams Montilla on 02-22-2025 RBC (Bld) [#/Vol] 4.02 10*6/uL Low 4.2-5.4 [facility] Random urine creatinine benedicto urement (mass/volume)Ordered By: Adams Montilla on 02-22-2025 Creatinine Unsp time (U) [Mass/Vol] 169.00 mg/dL 28.00-217.00 [facility] Screening total cholesterol/ high density lipoprotein (HDL) cholesterol ratioOrdered By: Adams Montilla on 02-22-2025 Cholesterol.total/Jacquelyn sterol in HDL [Mass ratio] 4.00 {ratio} [facility] Serum creatinine measurement (mass/volume)Ordered By: Adams Montilla on 02-22-2025 Creatinine [Mass/Vol] 0.71 mg/dL 0.70-1.20 [facility] Serum globulin measurementOr dered By: Adams Montilla on 02-22-2025 Globulin (S) [Mass/Vol] 2.6 g/dL 2.2-4.2 [facility] Serum glucose measurement (m ass/volume)Ordered By: Adams Montilla on 02-22-2025 Glucose [Mass/Vol] 90 mg/dL 70-99 [facility] Serum or plasma alanine hoskins otransferase (ALT) measurementOrdered By: Adams Montilla on 02-22-2025 ALT [Catalytic activity/Vol] 33 U/L <35 [facility] Serum or plasma albumin benedicto urement (mass/volume)Ordered By: Adams Montilla on 02-22-2025 Albumin [Mass/Vol] 4.0 g/dL 3.4-4.8 [facility] Serum or plasma albumin/glob ulin mass ratioOrdered By: Adams Montilla on 02-22-2025 Albumin/Globulin [Mass ratio] 1.6 {ratio} 0.9-2.4 [facility] Serum or plasma alkaline walter sphatase measurementOrdered By: Adams Montilla on 02-22-2025 ALP [Catalytic activity/Vol] 72 U/L 35-104 [facility] Serum or plasma calcium benedicto urement (mass/volume)Ordered By: Adams Montilla on 02-22-2025 Calcium [Mass/Vol] 9.6 mg/dL 7.6-11.0 [facility] Serum or plasma cholesterol in HDL measurement (mass/volume)Ordered By: Adams Montilla on 02-22-2025 Cholesterol in HDL [Mass/Vol] 48 mg/dL >40 [facility] Comment on above: National Cholesterol Education Program (NCEP) guidelines:<40 mg/dL: Low HDL-cholesterol (major risk factor for CHD)>= 60 mg/dL: High HDL-cholesterol (negative risk factor for CHD)HDL-cholesterol is affected by a number of factors, e.g. smoking, exercise, hormones, sex and age. Serum or plasma cholesterol measurement (mass/volume)Ordered By: Adams Montilla on 02-22-2025 Cholesterol [Mass/Vol] 192 mg/dL <201 [facility] Comment on above: Cholesterol level, D esirable <200 mg/dLBorderline high cholesterol 200-239 mg/dLHigh cholesterol >=240 mg/dLRecommendations of the NCEP Adult Treatment Panel for the following risk-cutoff thresholds for the [place] population. Serum or plasma urea nitroge n measurement (mass/volume)Ordered By: Adams Montilla on 02-22-2025 Urea nitrogen [Mass/Vol] 15 mg/dL 4-19 [facility] Sodium levelOrdered By: Praful Montilla on 02-22-2025 Sodium [Moles/Vol] 141 mmol/L 133-145 [facility] Total proteinOrdered By: Pasquale Montilla on 02-22-2025 Protein [Mass/Vol] 6.6 g/dL 5.9-8.4 [facility] Triglycerides measurementOrd ered By: Adams Montilla on 02-22-2025 Triglyceride [Mass/Vol] 145 mg/dL <199 [facility] Comment on above: The drugs N-Acetylcy steine and Metamizole may falsely depress this assay. Normal range: <150 mg/dLBorderline High: 150-199 mg/dLHigh: 200-499 mg/dLVery High: >500 mg/dL Urine albumin measurement [facility] detection limit of 20 mg/L or less (mass/volume)Ordered By: Adams Montilla on 02-22-2025 Albumin DL <= 20 mg/L (U) [Mass/Vol] < 12.0 mg/L NO RANGE EST. [facility] Vitamin D,25 Hydroxyon 02-22 Vitamin D 25-OH 46.6 ng/mL Normal 30-100 [facility] Comment on above: Result Comment: Randi min D Status Deficiency: <20 ng/mL (50nmol/L) Insufficiency: 20-30 ng/mL (50-75 nmol/L) Sufficiency: 30-100 ng/mL (75-250 nmol/L) Toxicity: >100 ng/mL (>250 nmol/L) Performed By: #### L 500.4100, L506.1001, L501.5200, L502.0250, L100.0500, L500.4050 #### [facility] [address] [place], [address] White blood cell (WBC) count Ordered By: Adams Montilla on 02-22-2025 WBC (Bld) [#/Vol] 4.5 10*3/uL 4.4-11.0 [facility] Breast imaging reportOrdered By: Fredy Knox on 12-20-2024 Study report [facility] Imaging Services [address] [place] [address] SCRN MAMM (CAD)W/OLLIE ABEL MR#: [id number] Acct: [id number] Name: SAV ROJAS Rep #: [id number] : 1955 F 69 From: Erik Knox MD PCP: LUCY GuzmanC Status: REG CLI Study:SCRN MAMM (CAD)W/OLLIE BILAT Date of Exa m: 12/20/24 Exam# [id number] Ordering Dr: Sylvester Adam MD PROCEDURE: SCRN MAMM (CAD)W/OLLIE BILAT REASON FOR EXAM: F, Age 69 y/o, routine follow-up. Mother with breast cancer. Grandmother with breast cancer. TECHNIQUE: Bilateral screening digital breast tomosynthesis with 2D and 3D images. Computeraided detection. COMPARISON: Prior exam(s) dating back to December 06, 2023.. FINDINGS: The breasts are almost entirely fatty. Stable small benign-appearing bilateral axillary lymph nodes. No suspicious masses, areas of developing architectural distortion, or suspicious calcifications. Stable examination. BI/SCRN MAMM (CAD)W/OLLIE BILAT IMPRESSION: BI-RADS 2: BENIGN. RECOMMEND ANNUAL MAMMOGRAPHIC SCREENING. Follow-up code: Routine Follow-up The patient will be notified of the results by letter. Reading Location: [id number] CC: SOLUTIONS DEVELOPMENT ANALYST-C Adams Montilla; Dr. Elza Adam MD ~ Signs Sales Representative: Signed [facility] SCRN MAMM (CAD)W/OLLIE BILATo n 12-20-2024 SCRN MAMM (CAD)W/OLLIE BILAT [facility] Imaging Services [address] [place] [id number] SCRN MAMM (CAD)W/OLLIE BILAT MR#: [id number] Acct: [id number] Name: SAV ROJAS Rep #: [id number] : 1955 F 69 From: Fredy lora MD PCP: MIC Guzman Status: REG CLI Study: SCRN MAMM (CAD)W/OLLIE BILAT Date of Exam: 04/10 Exam# [id number] Ordering Dr: Elza Adam MD PROCEDURE: SCRN MAMM (CAD)W/OLLIE BILAT REASON FOR EXAM: F, Age 69 y/o, routine follow-up. Mother with breast cancer. Grandmother with breast cancer. TECHNIQUE: Bilateral screening digital breast tomosynthesis with 2D and 3D images. Computer aided detection. COMPARISON: Prior exam(s) dating back to December 06, 2023.. FINDINGS: The breasts are almost entirely fatty. Stable small benign-appearing bilateral axillary lymph nodes. No suspicious masses, areas of developing architectural distortion, or suspicious calcifications. Stable examination. BI/SCRN MAMM (CAD)W/OLLIE BILAT IMPRESSION: BI-RADS 2: BENIGN. RECOMMEND ANNUAL MAMMOGRAPHIC SCREENING. Follow-up code: Routine Follow-up The patient will be notified of the results by letter. Reading Location: FIF-NECSAARDY-L CC: MIC Montilla; Dr. Elza Adam MD Signs Sales Representative: Signed Normal [facility] CBC-Complete Blood Cnt No Di ffon 2024 Erythrocyte distribution width (RBC) [Ratio] 12.5 % Normal 11.6-14.6 [facility] Comment on above: Performed By: #### L 500.4050, L506.1000, L500.4100, L502.0250, L100.0500 #### [facility] [address] [place] [id number] Hematocrit (Bld) [Volume fraction] 37.3 % Normal 37-47 [facility] Comment on above: Performed By: #### L 500.4050, L506.1000, L500.4100, L502.0250, L100.0500 #### [facility] [address] [facility] [address] Hemoglobin (Bld) [Mass/Vol] 12.2 g/dL Normal 12.0-15.0 [facility] Comment on above: Performed By: #### L 500.4050, L506.1000, L500.4100, L502.0250, L100.0500 #### [facility] [address] [place], [address] MCH (RBC) [Entitic mass] 30.1 pg Normal 27.0-32.0 [facility] Comment on above: Performed By: #### L 500.4050, L506.1000, L500.4100, L502.0250, L100.0500 #### [facility] [address] [place], [address] MCHC (RBC) [Mass/Vol] 32.7 g/dL Normal 32-36 [facility] Comment on above: Performed By: #### L 500.4050, L506.1000, L500.4100, L502.0250, L100.0500 #### [facility] [address] [place], [address] MCV (RBC) [Entitic vol] 92.1 fL Normal 81-99 [facility] Comment on above: Performed By: #### L 500.4050, L506.1000, L500.4100, L502.0250, L100.0500 #### [facility] [address] [place], [address] Platelet mean volume (Bld) [Entitic vol] 9.2 fL Normal 6.2-12.0 [facility] Comment on above: Performed By: #### L 500.4050, L506.1000, L500.4100, L502.0250, L100.0500 #### [facility] [address] [place], [address] Platelets (Bld) [#/Vol] 362 10*3/uL Normal 150-450 [facility] Comment on above: Performed By: #### L 500.4050, L506.1000, L500.4100, L502.0250, L100.0500 #### [facility] [address] [place], [address] RBC (Bld) [#/Vol] 4.05 10*6/uL Low 4.2-5.4 [facility] Comment on above: Performed By: #### L 500.4050, L506.1000, L500.4100, L502.0250, L100.0500 #### [facility] [address] [place], [address] RDW SD 42.6 fl Normal 35.1-43.9 [facility] Comment on above: Performed By: #### L 500.4050, L506.1000, L500.4100, L502.0250, L100.0500 #### [facility] [address] [place], [address] WBC (Bld) [#/Vol] 5.3 10*3/uL Normal 4.4-11.0 [facility] Comment on above: Performed By: #### L 500.4050, L506.1000, L500.4100, L502.0250, L100.0500 #### [facility] [address] [place], [address] Comprehensive Metabolic Prof [facility] 2024 Albumin [Mass/Vol] 3.4 g/dL Normal 3.2-5.0 [facility] Comment on above: Performed By: #### L 500.4050, L506.1000, L500.4100, L502.0250, L100.0500 #### [facility] [address] [place], [address] Albumin/Globulin [Mass ratio] 1.0 {ratio} Normal 0.9-2.4 [facility] Comment on above: Performed By: #### L 500.4050, L506.1000, L500.4100, L502.0250, L100.0500 #### [facility] [address] [place], [address] ALK P 84 U/L Normal 45-117 [facility] Comment on above: Performed By: #### L 500.4050, L506.1000, L500.4100, L502.0250, L100.0500 #### [facility] [address] [place], [address] ALT [Catalytic activity/Vol] 23 U/L Normal 13-56 [facility] Comment on above: Performed By: #### L 500.4050, L506.1000, L500.4100, L502.0250, L100.0500 #### [facility] [address] [place], [address] AST [Catalytic activity/Vol] 14 U/L Low 15-37 [facility] Comment on above: Performed By: #### L 500.4050, L506.1000, L500.4100, L502.0250, L100.0500 #### [facility] [address] [place], [address] Bilirubin [Mass/Vol] 0.40 mg/dL Normal 0.20-1.00 [facility] Comment on above: Result Comment: For patients on eltrombopag therapy, use of Dimension [place] TBIL is not recommended. Performed By: #### L 500.4050, L506.1000, L500.4100, L502.0250, L100.0500 #### [facility] [address] [place], [address] BUN/CRE 15.6 RATIO Normal 10-20 [facility] Comment on above: Performed By: #### L 500.4050, L506.1000, L500.4100, L502.0250, L100.0500 #### [facility] [address] [place], [address] CA,Total 9.7 mg/dL Normal 8.5-10.1 [facility] Comment on above: Performed By: #### L 500.4050, L506.1000, L500.4100, L502.0250, L100.0500 #### [facility] [address] [place], [address] Chloride [Moles/Vol] 101 mmol/L Normal 98-107 [facility] Comment on above: Performed By: #### L 500.4050, L506.1000, L500.4100, L502.0250, L100.0500 #### [facility] [address] [place], [address] CO2 [Moles/Vol] 27.0 mmol/L Normal 21.0-32.0 [facility] Comment on above: Performed By: #### L 500.4050, L506.1000, L500.4100, L502.0250, L100.0500 #### [facility] [address] [place], [address] Creatinine [Mass/Vol] 0.70 mg/dL Normal 0.55-1.02 [facility] Comment on above: Result Comment: The validity of the calculated GFR GFRAA in patients over 70 years has not been determined. Clinical correlation is essential. Performed By: #### L 500.4050, L506.1000, L500.4100, L502.0250, L100.0500 #### [facility] [address] [place], [address] EST GFR - AA 107 mL/min Normal >60 [facility] Comment on above: Result Comment: Afri can Citizen [place] GFR Calc Performed By: #### L 500.4050, L506.1000, L500.4100, L502.0250, L100.0500 #### [facility] [address] [place], [address] GAP 8 Normal 5-15 [facility] Comment on above: Performed By: #### L 500.4050, L506.1000, L500.4100, L502.0250, L100.0500 #### [facility] [address] [place], [address] GFR/1.73 sq M.predicted among non-blacks MDRD (S/P/Bld) [Vol rate/Area] 88 mL/min/{1.73_m2} Normal >60 [facility] Comment on above: Result Comment: Non- GFR Calc Performed By: #### L 500.4050, L506.1000, L500.4100, L502.0250, L100.0500 #### [facility] [address] [place], [address] Globulin (S) [Mass/Vol] 3.5 g/dL Normal 2.2-4.2 [facility] Comment on above: Performed By: #### L 500.4050, L506.1000, L500.4100, L502.0250, L100.0500 #### [facility] [address] [place], [address] Glucose [Mass/Vol] 101 mg/dL Normal 74-106 [facility] Comment on above: Result Comment: Fast ing Glucose result from 100 to 125 mg/dL suggests IMPAIRED HOMEOSTASIS per A.D.A. criteria. Performed By: #### L 500.4050, L506.1000, L500.4100, L502.0250, L100.0500 #### [facility] [address] [place], [address] Potassium [Moles/Vol] 4.0 mmol/L Normal 3.5-5.1 [facility] Comment on above: Performed By: #### L 500.4050, L506.1000, L500.4100, L502.0250, L100.0500 #### [facility] [address] [place], [address] Sodium [Moles/Vol] 136 mmol/L Normal 136-145 [facility] Comment on above: Performed By: #### L 500.4050, L506.1000, L500.4100, L502.0250, L100.0500 #### [facility] [address] [place], [address] T PROT 6.9 g/dL Normal 6.4-8.2 [facility] Comment on above: Performed By: #### L 500.4050, L506.1000, L500.4100, L502.0250, L100.0500 #### [facility] [address] [place], [address] Urea nitrogen [Mass/Vol] 11 mg/dL Normal 7-18 [facility] Comment on above: Performed By: #### L 500.4050, L506.1000, L500.4100, L502.0250, L100.0500 #### [facility] [address] [place], [address] Lipid Profileon 2024 Cholesterol [Mass/Vol] 184 mg/dL Normal 200 [facility] Comment on above: Result Comment: <200 mg/dL Desirable 200-240 mg/dL Borderline >240 mg/dL High Risk Performed By: #### L 500.4100, L506.1001, L501.5200, L502.0250, L100.0500, L500.4050 #### [facility] [address] [place], [address] Cholesterol in HDL [Mass/Vol] 54 mg/dL Normal [facility] Comment on above: Result Comment: The drugs N-Acetylcysteine and Metamizole may falsely depress this assay. Reference Range HDL <40 mg/dL Low HDL Cholesterol HDL >or= 60 mg/dL High HDL Cholesterol Performed By: #### L 500.4100, L506.1001, L501.5200, L502.0250, L100.0500, L500.4050 #### [facility] [address] [place], [address] Cholesterol in LDL [Mass/Vol] 106 mg/dL Normal 0-130 [facility] Comment on above: Performed By: #### L 500.4100, L506.1001, L501.5200, L502.0250, L100.0500, L500.4050 #### [facility] [address] [place], [place], [id number] (430) Cholesterol in VLDL [Mass/Vol] 24 mg/dL Normal 5-40 [facility] Comment on above: Performed By: #### L 500.4100, L506.1001, L501.5200, L502.0250, L100.0500, L500.4050 #### [facility] [address] [place], [address] Triglyceride [Mass/Vol] 122 mg/dL Normal [facility] Comment on above: Result Comment: The drugs N-Acetylcysteine and Metamizole may falsely depress this assay. Serum Triglycerides Reference Interval Normal <150 mg/dL Borderline high 150 - 199 mg/dL High 200 - 499 mg/dL Very High > or = 500 mg/dL Performed By: #### L 500.4100, L506.1001, L501.5200, L502.0250, L100.0500, L500.4050 #### [facility] [address] [place], [place], [id number] Microalb:Creat Ratio,Random URon 2024 Creatinine [Mass/Vol] 44.40 mg/dL Normal NO RANGE EST. [facility] Comment on above: Performed By: #### L 500.4050, L506.1000, L500.4100, L502.0250, L100.0500 #### [facility] [address] [place], [place], [id number] MALB:CRE TNP Normal <30 mg/g CRE [facility] Comment on above: Performed By: #### L 500.4050, L506.1000, L500.4100, L502.0250, L100.0500 #### [facility] [address] [place], [address] MICROALBUMIN,UR < 5.0 Normal NO RANGE EST. [facility] Comment on above: Performed By: #### L 500.4050, L506.1000, L500.4100, L502.0250, L100.0500 #### [facility] [address] [place], [address] Vitamin D,25 Hydroxyon 08-27 Vitamin D 25-OH 70.2 ng/mL Normal [facility] Comment on above: Result Comment: Randi min D 25(OH) Status Range Deficiency <20 ng/mL (50nmol/L) Insufficiency 20 - 30 ng/mL (50 - 75 nmol/L) Sufficiency 30 - 100 ng/mL (75 - 250 nmol/L) Toxicity >100 ng/mL (>250 nmol/L) Performed By: #### L 500.4050, L506.1000, L500.4100, L502.0250, L100.0500 #### [facility] [address] [place], [address] .Auto Diffon 09-14-2023 Basophil, Absolute 0.0 10 3/mcL Normal 0.0-0.2 [facility] ([place]) Comment on above: Performed By: #### B MP, ANEU, GFR, ADIFF, CBC #### [address] [address] Basophils/100 WBC (Bld) 0.5 % Normal 0.0-2.5 [facility] ([place]) Comment on above: Performed By: #### B MP, ANEU, GFR, ADIFF, CBC #### [address] [address] Eosinophil, Absolute 0.1 10 3/mcL Normal 0.0-0.4 [facility] ([place]) Comment on above: Performed By: #### B MP, ANEU, GFR, ADIFF, CBC #### [address] [address] Eosinophils/100 WBC (Bld) 1.6 % Normal 0.0-7.0 Replaced By [facility] ([place]) Comment on above: Performed By: #### B MP, ANEU, GFR, ADIFF, CBC #### [address] [address] Lymphocyte, Absolute 1.6 10 3/mcL Normal 0.8-3.9 [facility] ([place]) Comment on above: Performed By: #### B MP, ANEU, GFR, ADIFF, CBC #### [address] [address] Lymphocytes/100 WBC (Bld) 27.5 % Normal 10.0-50.0 Replaced By [facility] ([place]) Comment on above: Performed By: #### B MP, ANEU, GFR, ADIFF, CBC #### [address] [address] Monocyte, Absolute 0.5 10 3/mcL Normal 0.2-1.0 [facility] ([place]) Comment on above: Performed By: #### B MP, ANEU, GFR, ADIFF, CBC #### [address] [address] Monocytes/100 WBC (Bld) 7.9 % Normal 1.7-13.0 [facility] ([place]) Comment on above: Performed By: #### B MP, ANEU, GFR, ADIFF, CBC #### [address] [address] Neutrophils/100 WBC (Bld) 62.5 % Normal 37.0-80.0 Replaced By [facility] ([place]) Comment on above: Performed By: #### B MP, ANEU, GFR, ADIFF, CBC #### [address] [address] .GFRon 09-14-2023 GFR Non- 77 ml/min/1.73sqm Normal Replaced By [facility] ([place]) Comment on above: Result Comment: GFR Population mean for , Non- Americans Ages 20-29 = 116 mL/min/1.73 sq.m. Ages 30-39 = 107 mL/min/1.73 sq.m. Ages 40-49 = 99 mL/min/1.73 sq.m. Ages 50-59 = 93 mL/min/1.73 sq.m. Ages 60-69 = 85 mL/min/1.73 sq.m. Ages 70+ = 75 mL/min/1.73 sq.m. Chronic Kidney Disease: Less than 60 mL/min/1.73 square meters End Stage Renal Disease: Less than 15 mL/min/1.73 square meters Performed By: #### B MP, ANEU, GFR, ADIFF, CBC #### [address] [address] GFR 94 ml/min/1.73sqm Normal Replaced By [facility] ([place]) Comment on above: Result Comment: GFR Population mean for , Non- Americans Ages 20-29 = 116 mL/min/1.73 sq.m. Ages 30-39 = 107 mL/min/1.73 sq.m. Ages 40-49 = 99 mL/min/1.73 sq.m. Ages 50-59 = 93 mL/min/1.73 sq.m. Ages 60-69 = 85 mL/min/1.73 sq.m. Ages 70+ = 75 mL/min/1.73 sq.m. Chronic Kidney Disease: Less than 60 mL/min/1.73 square meters End Stage Renal Disease: Less than 15 mL/min/1.73 square meters Performed By: #### B MP, ANEU, GFR, ADIFF, CBC #### [address] [address] .NEUABSon 09-14-2023 Neutrophil, Absolute 3.6 10 3/mcL Normal 2.9-6.2 [facility] ([place]) Comment on above: Performed By: #### B MP, ANEU, GFR, ADIFF, CBC #### [address] [address] BMPon 09-14-2023 BUN/Creatinine Ratio 15 ratio Normal 7-27 [facility] ([place]) Comment on above: Performed By: #### B MP, ANEU, GFR, ADIFF, CBC #### [place] [id number] Calcium [Mass/Vol] 9.7 mg/dL Normal 8.4-10.2 [facility] ([place]) Comment on above: Performed By: #### B MP, ANEU, GFR, ADIFF, CBC #### [address] [address] Chloride [Moles/Vol] 99 mmol/L Normal 98-107 [facility] ([place]) Comment on above: Performed By: #### B MP, ANEU, GFR, ADIFF, CBC #### [address] [address] CO2 [Moles/Vol] 28 mmol/L Normal 23-31 Replaced By [facility] ([place]) Comment on above: Performed By: #### B MP, ANEU, GFR, ADIFF, CBC #### [address] [address] Creatinine [Mass/Vol] 0.75 mg/dL Normal 0.55-1.02 [facility] ([place]) Comment on above: Performed By: #### B MP, ANEU, GFR, ADIFF, CBC #### [address] [address] Electrolyte Balance 9.0 mEq/L Normal 4.0-15.0 [facility] ([place]) Comment on above: Performed By: #### B MP, ANEU, GFR, ADIFF, CBC #### [address] [address] Glucose [Mass/Vol] 101 mg/dL Normal 80-115 [facility] ([place]) Comment on above: Performed By: #### B MP, ANEU, GFR, ADIFF, CBC #### [address] [address] Potassium [Moles/Vol] 4.0 mmol/L Normal 3.5-5.1 [facility] ([place]) Comment on above: Performed By: #### B MP, ANEU, GFR, ADIFF, CBC #### [address] [address] Sodium [Moles/Vol] 136 mmol/L Normal 136-145 [facility] ([place]) Comment on above: Performed By: #### B MP, ANEU, GFR, ADIFF, CBC #### [place] [address] Urea nitrogen [Mass/Vol] 11 mg/dL Normal 7-18 Replaced By [facility] ([place]) Comment on above: Performed By: #### B MP, ANEU, GFR, ADIFF, CBC #### [place] [address] CBCon 09-14-2023 Erythrocyte distribution width (RBC) [Ratio] 13.4 % Normal 11.5-14.5 Replaced By [facility] ([place]) Comment on above: Order Comment: Pre-A dmission Testing Performed By: #### B MP, ANEU, GFR, ADIFF, CBC #### [place] [address] Hematocrit (Bld) [Volume fraction] 37.2 % Normal 37.0-47.0 Replaced By [facility] ([place]) Comment on above: Order Comment: Pre-A dmission Testing Performed By: #### B MP, ANEU, GFR, ADIFF, CBC #### [place] [address] Hgb 12.7 G/dL Normal 12.0-16.0 Replaced By [facility] ([place]) Comment on above: Order Comment: Pre-A dmission Testing Performed By: #### B MP, ANEU, GFR, ADIFF, CBC #### [place] [address] MCH (RBC) [Entitic mass] 30.8 pg Normal 27.0-31.2 Replaced By [facility] ([place]) Comment on above: Order Comment: Pre-A dmission Testing Performed By: #### B MP, ANEU, GFR, ADIFF, CBC #### [place] [address] MCHC 34.1 G/dL Normal 33.0-37.0 Replaced By [facility] ([place]) Comment on above: Order Comment: Pre-A dmission Testing Performed By: #### B MP, ANEU, GFR, ADIFF, CBC #### [address] [address] MCV (RBC) [Entitic vol] 90.2 fL Normal 80.0-94.0 A [facility] ([place]) Comment on above: Order Comment: Pre-A dmission Testing Performed By: #### B MP, ANEU, GFR, ADIFF, CBC #### [address] [address] Platelet 312 10 3/mcL Normal 130-400 Replaced By [facility] ([place]) Comment on above: Order Comment: Pre-A dmission Testing Performed By: #### B MP, ANEU, GFR, ADIFF, CBC #### [address] [address] Platelet mean volume (Bld) [Entitic vol] 7.5 fL Normal 7.4-10.4 Replaced By [facility] ([place]) Comment on above: Order Comment: Pre-A dmission Testing Performed By: #### B MP, ANEU, GFR, ADIFF, CBC #### [address] [address] RBC 4.12 10 6/mcL Low 4.20-5.40 Replaced By [facility] ([place]) Comment on above: Order Comment: Pre-A dmission Testing Performed By: #### B MP, ANEU, GFR, ADIFF, CBC #### [address] [address] WBC 5.8 10 3/mcL Normal 4.6-10.8 Replaced By [facility] ([place]) Comment on above: Order Comment: Pre-A dmission Testing Performed By: #### B MP, ANEU, GFR, ADIFF, CBC #### [address] [address] US SOFT TISSUE Sade 2022 US SOFT TISSUE MASS ORIGINAL EXAMINATION: SOFT TISSUE [id number]/3/2023 11:44 am COMPARISON: None HISTORY: ORDERING SYSTEM PROVIDED HISTORY: Reason for Exam: umbilical hernia with pain, bloating, diarrhea, nausea FINDINGS: Scanning of the periumbilical region shows a defect in the anterior abdominal wall through which there is herniation of abdominal contents that seems to be mostly fat. A small amount of bowel in the hernia is not excluded. No fluid is seen. This increases with Valsalva. The hernia sac is at least 5.0 x 2.0 by 4.7 cm with the abdominal wall defect measuring at least 2.3 cm. IMPRESSION: Moderate to large periumbilical hernia containing mostly fat. Interpreted by: Cedric Wasserman MD Preliminary Report By: Cedric Wasserman MD Electronically signed By Cedric Wasserman MD Dictated Date: 08/23/2023 7:05:17 PM Prelim Date: 08/23/2023 7:07:26 PM Sign Date: 08/23/2023 7:07:26 PM Ordering Provider: MANJIT Castro Replaced By [facility] ([place]) Basophil percentageOrdered B y: Adams Montilla on 08-19-2023 Bilirubin [Mass/Vol] 0.60 mg/dL 0.20-1.00 [facility] Comment on above: For patients on eltr ombopag therapy, use of Dimension [place] TBIL is not recommended. Chloride [Moles/Vol] 102 mmol/L 98-107 [facility] Cholesterol [Mass/Vol] 206 mg/dL <200 [facility] Comment on above: <200 mg/dL Desirable 200-240 mg/dL Borderline >240 mg/dL High Risk Glucose [Mass/Vol] 96 mg/dL 74-106 [facility] Potassium [Moles/Vol] 3.8 mmol/L 3.5-5.1 [facility] Protein [Mass/Vol] 7.3 g/dL 6.4-8.2 [facility] Sodium [Moles/Vol] 138 mmol/L 136-145 [facility] Triglyceride [Mass/Vol] 126 mg/dL <199 [facility] Comment on above: The drugs N-Acetylcy steine and Metamizole may falsely depress this assay.Serum Triglycerides Reference Interval Normal <150 mg/dL Borderline high 150 - 199 mg/dL High 200 - 499 mg/dL Very High > or = 500 mg/dL WBC (Bld) [#/Vol] 5.8 10*3/uL 4.4-11.0 [facility] Blood erythrocytes count (nu mber/volume)Ordered By: Adams Montilla on 08-19-2023 RBC (Bld) [#/Vol] 4.45 10*6/uL 4.2-5.4 [facility] Blood hemoglobin measurement (mass/volume)Ordered By: Adams Montilla on 08-19-2023 Hemoglobin (Bld) [Mass/Vol] 13.6 g/dL 12.0-15.0 [facility] Blood platelet mean volumeOr dered By: Adams Montilla on 08-19-2023 Platelet mean volume (Bld) [Entitic vol] 9.8 fL 6.2-12.0 [facility] Determination of erythrocyte mean corpuscular volume (MCV)Ordered By: Adams Montilla on 08-19-2023 MCV (RBC) [Entitic vol] 94.8 fL 81-99 [facility] Hematocrit Auto (Bld) [Volum e fraction]Ordered By: Adams Montilla on 08-19-2023 Hematocrit (Bld) [Volume fraction] 42.2 % 37-47 [facility] - Chemistry and C hemistry - challengeOrdered By: Adams Montilla on 08-19-2023 ALP [Catalytic activity/Vol] 76 U/L 45-117 [facility] ALT [Catalytic activity/Vol] 42 U/L 13-56 [facility] CO2 [Moles/Vol] 31.0 mmol/L 21.0-32.0 [facility] Globulin (S) [Mass/Vol] 3.5 g/dL 2.2-4.2 [facility] Urea nitrogen/Creatinine [Mass ratio] 15.3 mg/mg 10-20 [facility] - Hematology and Cell countsOrdered By: Adams Montilla on 08-19-2023 Erythrocyte distribution width (RBC) [Entitic vol] 43.8 fL 35.1-43.9 [facility] Erythrocyte distribution width (RBC) [Ratio] 12.7 % 11.6-14.6 [facility] MCH (RBC) [Entitic mass] 30.6 pg 27.0-32.0 [facility] MCHC Auto (RBC) [Mass/Vol]Or dered By: Adams Montilla on 08-19-2023 MCHC (RBC) [Mass/Vol] 32.2 g/dL 32-36 [facility] No Panel InformationOrdered By: Adams Montilla on 08-19-2023 Estimated GFR (MDRD) Amer 95 mL/min >60 [facility] Comment on above: GFR Calc Estimated GFR (MDRD) Non-Af Amer 78 mL/min >60 [facility] Comment on above: Non- GFR Calc Urine Microalbumin/Creatinine Ratio 11.9 mg/g CRE <30 [facility] Vitamin D 25-Hydroxy 86.6 ng/mL [facility] Comment on above: Vitamin D 25(OH) Sta tus Range Deficiency <20 ng/mL (50nmol/L) Insufficiency 20 - 30 ng/mL (50 - 75 nmol/L) Sufficiency 30 - 100 ng/mL (75 - 250 nmol/L) Toxicity >100 ng/mL (>250 nmol/L) Platelets bldOrdered By: Pasquale Montilla on 08-19-2023 Platelets (Bld) [#/Vol] 360 10*3/uL 150-450 [facility] Serum or plasma albumin benedicto urement (mass/volume)Ordered By: Adams Montilla on 08-19-2023 Albumin [Mass/Vol] 3.8 g/dL 3.2-5.0 [facility] Serum or plasma albumin/glob ulin mass ratioOrdered By: Adams Montilla on 08-19-2023 Albumin/Globulin [Mass ratio] 1.1 {ratio} 0.9-2.4 [facility] Serum or plasma calcium benedicto urement (mass/volume)Ordered By: Adams Montilla on 08-19-2023 Calcium [Mass/Vol] 9.6 mg/dL 8.5-10.1 [facility] Serum or plasma cholesterol in HDL measurement (mass/volume)Ordered By: Adams Montilla on 08-19-2023 Cholesterol in HDL [Mass/Vol] 55 mg/dL >40 [facility] Comment on above: The drugs N-Acetylcy steine and Metamizole may falsely depress this assay. Reference Range HDL <40 mg/dL Low HDL Cholesterol HDL >or= 60 mg/dL High HDL Cholesterol Serum or plasma cholesterol in VLDL measurement (mass/volume)Ordered By: Adams Montilla on 08-19-2023 Cholesterol in VLDL [Mass/Vol] 25 mg/dL 5-40 [facility] Serum or plasma creatinine m easurement (mass/volume)Ordered By: Adams Montilla on 08-19-2023 Creatinine [Mass/Vol] 0.78 mg/dL 0.55-1.02 [facility] Comment on above: The validity of the calculated GFR & GFRAA in patients over 70 years has not been determined. Clinical correlation is essential. Serum or plasma low density lipoprotein (LDL) cholesterol measurement (mass/volume)Ordered By: Adams Montilla on 08-19-2023 Cholesterol in LDL [Mass/Vol] 126 mg/dL 0-130 [facility] Serum or plasma urea nitroge n measurement (mass/volume)Ordered By: Adams Montilla on 08-19-2023 Urea nitrogen [Mass/Vol] 12 mg/dL 7-18 [facility] Thin prep Papanicolaou smear with manual screeningOrdered By: Adams Montilla on 08-19-2023 Thin prep Papanicolaou smear with manual screening 22 U/L 15-37 [facility] Thin prep Papanicolaou smear with manual screening 5 5-15 [facility] Thin prep Papanicolaou smear with manual screening 10.9 mg/L NO RANGE EST. [facility] Urine creatinine measurement (mass/volume)Ordered By: Adams Montilla on 08-19-2023 Creatinine (U) [Mass/Vol] 91.50 mg/dL NO RANGE EST. [facility] 03-04-2023 U Creatinine 22.4 mg/dL Low 28.0-117.0 Replaced By [facility] ([place]) Comment on above: Performed By: #### M ALBR #### [address] [address] U Microalb <130 Normal Replaced By [facility] ([place]) Comment on above: Performed By: #### M ALBR #### [address] [address] U Ratio Alb/Cre Unable to Calculate Normal 0-30 Replaced By [facility] ([place]) Comment on above: Result Comment: Unab le to calculate this test result accurately. Results used to calculate this test are outside the reportable range. Performed By: #### M ALBR #### [address], [place] [address] Basophil percentageOrdered B y: Adams Montilla on 02-24-2023 Bilirubin [Mass/Vol] 0.40 mg/dL 0.20-1.00 [facility] Comment on above: For patients on eltr ombopag therapy, use of Dimension [place] TBIL is not recommended. Chloride [Moles/Vol] 105 mmol/L 98-107 [facility] Cholesterol [Mass/Vol] 182 mg/dL <200 [facility] Comment on above: <200 mg/dL Desirable 200-240 mg/dL Borderline >240 mg/dL High Risk Glucose [Mass/Vol] 92 mg/dL 74-106 [facility] Potassium [Moles/Vol] 4.3 mmol/L 3.5-5.1 [facility] Protein [Mass/Vol] 7.1 g/dL 6.4-8.2 [facility] Sodium [Moles/Vol] 140 mmol/L 136-145 [facility] Triglyceride [Mass/Vol] 127 mg/dL <199 [facility] Comment on above: The drugs N-Acetylcy steine and Metamizole may falsely depress this assay.Serum Triglycerides Reference Interval Normal <150 mg/dL Borderline high 150 - 199 mg/dL High 200 - 499 mg/dL Very High > or = 500 mg/dL WBC (Bld) [#/Vol] 4.7 10*3/uL 4.4-11.0 [facility] Blood erythrocytes count (nu mber/volume)Ordered By: Adams Montilla on 02-24-2023 RBC (Bld) [#/Vol] 4.13 10*6/uL 4.2-5.4 [facility] Blood hemoglobin measurement (mass/volume)Ordered By: Adams Montilla on 02-24-2023 Hemoglobin (Bld) [Mass/Vol] 12.3 g/dL 12.0-15.0 [facility] Blood platelet mean volumeOr dered By: Adams Montilla on 02-24-2023 Platelet mean volume (Bld) [Entitic vol] 9.6 fL 6.2-12.0 [facility] Determination of erythrocyte mean corpuscular volume (MCV)Ordered By: Adams Montilla on 02-24-2023 MCV (RBC) [Entitic vol] 94.4 fL 81-99 [facility] Hematocrit Auto (Bld) [Volum e fraction]Ordered By: Adams Montilla on 02-24-2023 Hematocrit (Bld) [Volume fraction] 39.0 % 37-47 [facility] - Chemistry and C hemistry - challengeOrdered By: Adams Montilla on 02-24-2023 ALP [Catalytic activity/Vol] 60 U/L 45-117 [facility] ALT [Catalytic activity/Vol] 30 U/L 13-56 [facility] CO2 [Moles/Vol] 30.0 mmol/L 21.0-32.0 [facility] Globulin (S) [Mass/Vol] 3.4 g/dL 2.2-4.2 [facility] Urea nitrogen/Creatinine [Mass ratio] 16.2 mg/mg 10-20 [facility] - Hematology and Cell countsOrdered By: Adams Montilla on 02-24-2023 Erythrocyte distribution width (RBC) [Entitic vol] 44.2 fL 35.1-43.9 [facility] Erythrocyte distribution width (RBC) [Ratio] 12.8 % 11.6-14.6 [facility] MCH (RBC) [Entitic mass] 29.8 pg 27.0-32.0 [facility] MCHC Auto (RBC) [Mass/Vol]Or dered By: Adams Montilla on 02-24-2023 MCHC (RBC) [Mass/Vol] 31.5 g/dL 32-36 [facility] No Panel InformationOrdered By: Adams Montilla on 02-24-2023 Estimated GFR (MDRD) Amer 101 mL/min >60 [facility] Comment on above: GFR Calc Estimated GFR (MDRD) Non-Af Amer 84 mL/min >60 [facility] Comment on above: Non- GFR Calc Vitamin D 25-Hydroxy 76.9 ng/mL [facility] Comment on above: Vitamin D 25(OH) Sta tus Range Deficiency <20 ng/mL (50nmol/L) Insufficiency 20 - 30 ng/mL (50 - 75 nmol/L) Sufficiency 30 - 100 ng/mL (75 - 250 nmol/L) Toxicity >100 ng/mL (>250 nmol/L) Platelets bldOrdered By: Pasquale melinda Roldan on 02-24-2023 Platelets (Bld) [#/Vol] 310 10*3/uL 150-450 [facility] Serum or plasma albumin benedicto urement (mass/volume)Ordered By: Adams Montilla on 02-24-2023 Albumin [Mass/Vol] 3.7 g/dL 3.2-5.0 [facility] Serum or plasma albumin/glob ulin mass ratioOrdered By: Adams Montilla on 02-24-2023 Albumin/Globulin [Mass ratio] 1.1 {ratio} 0.9-2.4 [facility] Serum or plasma calcium benedicto urement (mass/volume)Ordered By: Adams Montilla on 02-24-2023 Calcium [Mass/Vol] 9.6 mg/dL 8.5-10.1 [facility] Serum or plasma cholesterol in HDL measurement (mass/volume)Ordered By: Adams Montilla on 02-24-2023 Cholesterol in HDL [Mass/Vol] 51 mg/dL >40 [facility] Comment on above: The drugs N-Acetylcy steine and Metamizole may falsely depress this assay. Reference Range HDL <40 mg/dL Low HDL Cholesterol HDL >or= 60 mg/dL High HDL Cholesterol Serum or plasma cholesterol in VLDL measurement (mass/volume)Ordered By: Adams Montilla on 02-24-2023 Cholesterol in VLDL [Mass/Vol] 25 mg/dL 5-40 [facility] Serum or plasma creatinine m easurement (mass/volume)Ordered By: Adams Montilla on 02-24-2023 Creatinine [Mass/Vol] 0.74 mg/dL 0.55-1.02 [facility] Comment on above: The validity of the calculated GFR & GFRAA in patients over 70 years has not been determined. Clinical correlation is essential. Serum or plasma low density lipoprotein (LDL) cholesterol measurement (mass/volume)Ordered By: Adams Montilla on 02-24-2023 Cholesterol in LDL [Mass/Vol] 106 mg/dL 0-130 [facility] Serum or plasma urea nitroge n measurement (mass/volume)Ordered By: Adams Montilla on 02-24-2023 Urea nitrogen [Mass/Vol] 12 mg/dL 7-18 [facility] Thin prep Papanicolaou smear with manual screeningOrdered By: Adams Montilla on 02-24-2023 Thin prep Papanicolaou smear with manual screening 17 U/L 15-37 [facility] Thin prep Papanicolaou smear with manual screening 5 5-15 [facility] Basophil percentageon 2021 Bilirubin [Mass/Vol] 0.50 mg/dL 0.20-1.00 [facility] Work Phone: Comment on above: For patients on eltr ombopag therapy, use of Dimension [place] TBIL is not recommended. Chloride [Moles/Vol] 105 mmol/L 98-107 [facility] Work Phone: Cholesterol [Mass/Vol] 200 mg/dL <200 [facility] Work Phone: Comment on above: <200 mg/dL Desirable 200-240 mg/dL Borderline >240 mg/dL High Risk Glucose [Mass/Vol] 99 mg/dL 74-106 [facility] Work Phone: Potassium [Moles/Vol] 4.2 mmol/L 3.5-5.1 [facility] Work Phone: Protein [Mass/Vol] 6.8 g/dL 6.4-8.2 [facility] Work Phone: Sodium [Moles/Vol] 141 mmol/L 136-145 [facility] Work Phone: Triglyceride [Mass/Vol] 172 mg/dL <199 [facility] Work Phone: Comment on above: The drugs N-Acetylcy steine and Metamizole may falsely depress this assay.Serum Triglycerides Reference Interval Normal <150 mg/dL Borderline high 150 - 199 mg/dL High 200 - 499 mg/dL Very High > or = 500 mg/dL WBC (Bld) [#/Vol] 5.2 10*3/uL 4.4-11.0 [facility] Work Phone: Blood erythrocytes count (nu mber/volume)on 08-24-2022 RBC (Bld) [#/Vol] 4.04 10*6/uL 4.2-5.4 [facility]: Blood hemoglobin measurement (mass/volume)on 08-24-2022 Hemoglobin (Bld) [Mass/Vol] 12.5 g/dL 12.0-15.0 [facility] Work Phone: Blood platelet mean volumeon 08-24-2022 Platelet mean volume (Bld) [Entitic vol] 9.6 fL 6.2-12.0 [facility] Work Phone: Determination of erythrocyte mean corpuscular volume (MCV)on 08-24-2022 MCV (RBC) [Entitic vol] 94.3 fL 81-99 [facility] Work Phone: Hematocrit Auto (Bld) [Volum e fraction]on 08-24-2022 Hematocrit (Bld) [Volume fraction] 38.1 % 37-47 [facility] Work Phone: Laboratory - Chemistry and C hemistry - challengeon 08-24-2022 ALP [Catalytic activity/Vol] 67 U/L 45-117 [facility] Work Phone: ALT [Catalytic activity/Vol] 31 U/L 13-56 [facility] Work Phone: CO2 [Moles/Vol] 30.0 mmol/L 21.0-32.0 [facility] Work Phone: Globulin (S) [Mass/Vol] 3.3 g/dL 2.2-4.2 [facility] Work Phone: Urea nitrogen/Creatinine [Mass ratio] 18.9 mg/mg 10-20 [facility] Work Phone: Laboratory - Hematology and Cell countson 08-24-2022 Erythrocyte distribution width (RBC) [Entitic vol] 43.9 fL 35.1-43.9 [facility] Work Phone: Erythrocyte distribution width (RBC) [Ratio] 12.7 % 11.6-14.6 [facility] Work Phone: MCH (RBC) [Entitic mass] 30.9 pg 27.0-32.0 [facility] Work Phone: MCHC Auto (RBC) [Mass/Vol]on 08-24-2022 MCHC (RBC) [Mass/Vol] 32.8 g/dL 32-36 [facility] Work Phone: No Panel Informationon 08-24 Estimated GFR (MDRD) Amer 110 mL/min >60 [facility] Work Phone: Comment on above: GFR Calc Estimated GFR (MDRD) Non-Af Amer 91 mL/min >60 [facility] Work Phone: Comment on above: Non- GFR Calc Thyroid Stimulating Hormone (TSH) 1.07 uIU/mL 0.358-3.74 [facility] Work Phone: Vitamin D 25-Hydroxy 83.9 ng/mL [facility] Work Phone: Comment on above: Vitamin D 25(OH) Sta tus Range Deficiency <20 ng/mL (50nmol/L) Insufficiency 20 - 30 ng/mL (50 - 75 nmol/L) Sufficiency 30 - 100 ng/mL (75 - 250 nmol/L) Toxicity >100 ng/mL (>250 nmol/L) Platelets bldon 08-24-2022 Platelets (Bld) [#/Vol] 328 10*3/uL 150-450 [facility] Work Phone: Serum or plasma albumin benedicto urement (mass/volume)on 08-24-2022 Albumin [Mass/Vol] 3.5 g/dL 3.2-5.0 [facility] Work Phone: Serum or plasma albumin/glob ulin mass ratioon 08-24-2022 Albumin/Globulin [Mass ratio] 1.1 {ratio} 0.9-2.4 [facility] Work Phone: Serum or plasma calcium benedicto urement (mass/volume)on 08-24-2022 Calcium [Mass/Vol] 9.6 mg/dL 8.5-10.1 [facility] Work Phone: Serum or plasma cholesterol in HDL measurement (mass/volume)on 08-24-2022 Cholesterol in HDL [Mass/Vol] 51 mg/dL >40 [facility] Work Phone: Comment on above: The drugs N-Acetylcy steine and Metamizole may falsely depress this assay. Reference Range HDL <40 mg/dL Low HDL Cholesterol HDL >or= 60 mg/dL High HDL Cholesterol Serum or plasma cholesterol in VLDL measurement (mass/volume)on 08-24-2022 Cholesterol in VLDL [Mass/Vol] 34 mg/dL 5-40 [facility] Work Phone: Serum or plasma creatinine m easurement (mass/volume)on 08-24-2022 Creatinine [Mass/Vol] 0.69 mg/dL 0.55-1.02 [facility] Work Phone: Comment on above: The validity of the calculated GFR & GFRAA in patients over 70 years has not been determined. Clinical correlation is essential. Serum or plasma low density lipoprotein (LDL) cholesterol measurement (mass/volume)on 08-24-2022 Cholesterol in LDL [Mass/Vol] 115 mg/dL 0-130 [facility] Work Phone: Serum or plasma urea nitroge n measurement (mass/volume)on 08-24-2022 Urea nitrogen [Mass/Vol] 13 mg/dL 7-18 [facility] Work Phone: Thin prep Papanicolaou smear with manual screeningon 08-24-2022 Thin prep Papanicolaou smear with manual screening 17 U/L 15-37 [facility] Work Phone: Thin prep Papanicolaou smear with manual screening 6 5-15 [facility] Work Phone: Thin prep Papanicolaou smear with manual screening 6.2 mg/L NO RANGE EST. [facility] Work Phone: Basophil percentageon 2021 Bilirubin [Mass/Vol] 0.40 mg/dL 0.20-1.00 [facility] Work Phone: Comment on above: For patients on eltr ombopag therapy, use of Dimension [place] TBIL is not recommended. Chloride [Moles/Vol] 104 mmol/L 98-107 [facility] Work Phone: Cholesterol [Mass/Vol] 195 mg/dL <200 [facility] Work Phone: Comment on above: <200 mg/dL Desirable 200-240 mg/dL Borderline >240 mg/dL High Risk Glucose [Mass/Vol] 95 mg/dL 74-106 [facility] Work Phone: Potassium [Moles/Vol] 3.7 mmol/L 3.5-5.1 [facility] Work Phone: Protein [Mass/Vol] 6.9 g/dL 6.4-8.2 [facility] Work Phone: Sodium [Moles/Vol] 140 mmol/L 136-145 [facility] Work Phone: Triglyceride [Mass/Vol] 152 mg/dL [facility] Work Phone: Comment on above: The drugs N-Acetylcy steine and Metamizole may falsely depress this assay.Serum Triglycerides Reference Interval Normal <150 mg/dL Borderline high 150 - 199 mg/dL High 200 - 499 mg/dL Very High > or = 500 mg/dL WBC (Bld) [#/Vol] 5.2 10*3/uL 4.4-11.0 [facility] Work Phone: Blood erythrocytes count (nu mber/volume)on 02-23-2022 RBC (Bld) [#/Vol] 4.11 10*6/uL 4.2-5.4 [facility] Work Phone: Blood hemoglobin measurement (mass/volume)on 02-23-2022 Hemoglobin (Bld) [Mass/Vol] 12.6 g/dL 12.0-15.0 [facility] Work Phone: Blood platelet mean volumeon 02-23-2022 Platelet mean volume (Bld) [Entitic vol] 9.8 fL 6.2-12.0 [facility] Work Phone: Determination of erythrocyte mean corpuscular volume (MCV)on 02-23-2022 MCV (RBC) [Entitic vol] 92.0 fL 81-99 [facility] Work Phone: Hematocrit Auto (Bld) [Volum e fraction]on 02-23-2022 Hematocrit (Bld) [Volume fraction] 37.8 % 37-47 [facility] Work Phone: Laboratory - Chemistry and C hemistry - challengeon 02-23-2022 ALP [Catalytic activity/Vol] 69 U/L 45-117 [facility] Work Phone: ALT [Catalytic activity/Vol] 34 U/L 13-56 [facility] Work Phone: CO2 [Moles/Vol] 27.0 mmol/L 21.0-32.0 [facility] Work Phone: Globulin (S) [Mass/Vol] 3.3 g/dL 2.2-4.2 [facility] Work Phone: Urea nitrogen/Creatinine [Mass ratio] 22.8 mg/mg 10-20 [facility] Work Phone: Laboratory - Hematology and Cell countson 02-23-2022 Erythrocyte distribution width (RBC) [Entitic vol] 43.3 fL 35.1-43.9 [facility] Work Phone: Erythrocyte distribution width (RBC) [Ratio] 12.8 % 11.6-14.6 [facility] Work Phone: MCH (RBC) [Entitic mass] 30.7 pg 27.0-32.0 [facility] Work Phone: MCHC Auto (RBC) [Mass/Vol]on 02-23-2022 MCHC (RBC) [Mass/Vol] 33.3 g/dL 32-36 [facility] Work Phone: No Panel Informationon 02-23 Estimated GFR (MDRD) Amer 101 mL/min >60 [facility] Work Phone: Comment on above: GFR Calc Estimated GFR (MDRD) Non-Af Amer 83 mL/min >60 [facility] Work Phone: Comment on above: Non- GFR Calc Vitamin D 25-Hydroxy 85.1 ng/mL [facility] Work Phone: Comment on above: Vitamin D 25(OH) Sta tus Range Deficiency <20 ng/mL (50nmol/L) Insufficiency 20 - 30 ng/mL (50 - 75 nmol/L) Sufficiency 30 - 100 ng/mL (75 - 250 nmol/L) Toxicity >100 ng/mL (>250 nmol/L) Platelets bldon 02-23-2022 Platelets (Bld) [#/Vol] 336 10*3/uL 150-450 [facility] Work Phone: Serum or plasma albumin benedicto urement (mass/volume)on 02-23-2022 Albumin [Mass/Vol] 3.6 g/dL 3.2-5.0 [facility] Work Phone: Serum or plasma albumin/glob ulin mass ratioon 02-23-2022 Albumin/Globulin [Mass ratio] 1.1 {ratio} 0.9-2.4 [facility] Work Phone: Serum or plasma calcium benedicto urement (mass/volume)on 02-23-2022 Calcium [Mass/Vol] 9.3 mg/dL 8.5-10.1 [facility] Work Phone: Serum or plasma cholesterol in HDL measurement (mass/volume)on 02-23-2022 Cholesterol in HDL [Mass/Vol] 48 mg/dL [facility] Work Phone: Comment on above: The drugs N-Acetylcy steine and Metamizole may falsely depress this assay. Reference Range HDL <40 mg/dL Low HDL Cholesterol HDL >or= 60 mg/dL High HDL Cholesterol Serum or plasma cholesterol in VLDL measurement (mass/volume)on 02-23-2022 Cholesterol in VLDL [Mass/Vol] 30 mg/dL 5-40 [facility] Work Phone: Serum or plasma creatinine m easurement (mass/volume)on 02-23-2022 Creatinine [Mass/Vol] 0.74 mg/dL 0.55-1.02 [facility] Work Phone: Comment on above: The validity of the calculated GFR & GFRAA in patients over 70 years has not been determined. Clinical correlation is essential. Serum or plasma low density lipoprotein (LDL) cholesterol measurement (mass/volume)on 02-23-2022 Cholesterol in LDL [Mass/Vol] 117 mg/dL 0-130 [facility] Work Phone: Serum or plasma urea nitroge n measurement (mass/volume)on 02-23-2022 Urea nitrogen [Mass/Vol] 17 mg/dL 7-18 [facility] Work Phone: Thin prep Papanicolaou smear with manual screeningon 02-23-2022 Thin prep Papanicolaou smear with manual screening 23 U/L 15-37 [facility] Work Phone: Thin prep Papanicolaou smear with manual screening 9 5-15 [facility] Work Phone: Vital Signs Date Time Vital Sign Value Performing Clinician Faci lity 09-28-2022 13:43-0500 Body height 173.99 cm [facility] Work Phone: Encounters Encounter Date Encounter Type Care Provider Facility Start: 03-27-2025 ambulatory Adams Montilla NP Facility:[facility] Start: 02-22-2025 End: 02-22-2025 ambulatory Adams Montilla SOLUTIONS DEVELOPMENT ANALYST-C Work Phone: [facility] Work Phone: Start: 02-22-2025 End: 02-22-2025 Patient encounter procedure Adams Montilla SOLUTIONS DEVELOPMENT ANALYST-C -Laboratory [place] Work Phone: Start: 02-22-2025 End: 02-22-2025 ambulatory Adams Montilla SOLUTIONS DEVELOPMENT ANALYST Facility:[facility] Start: 12-20-2024 End: 12-20-2024 ambulatory Adams Montilla SOLUTIONS DEVELOPMENT ANALYST-C Work Phone: [facility] Work Phone: Start: 12-20-2024 End: 12-20-[address] Elza Adam MD -[facility]patient [facility] Work Phone: Start: 12-20-2024 End: 12-20-2024 ambulatory Elza Adam Facility:[facility] Start: 2024 End: 2024 ambulatory Adams Montilla SOLUTIONS DEVELOPMENT ANALYST Facility:[facility] Start: 12-06-2023 End: 12-06-2023 ambulatory [facility] Work Phone: Start: 12-06-2023 End: 12-06-2023 Patient encounter procedure [facility] Work Phone: Start: 09-22-2023 End: 09-22-2023 ambulatory REGINA SPIVEY MD Facility:B Start: 09-14-2023 End: 09-15-2023 ambulatory REGINA SPIVEY MD Facility:B Start: 08-19-2023 End: 08-20-2023 ambulatory ADAMS MONTILLA WOOD CARVER - DEBONING TEAM LEADER Facility:B Start: 08-19-2023 End: 08-19-2023 Patient encounter procedure MANJIT MAST WO[employer] CARVER-DEBONING TEAM LEADER [facility] Start: 08-19-2023 End: 08-19-2023 Patient encounter procedure [facility]-Laboratory, [place] Work Phone: Start: 03-04-2023 End: 03-09-2023 ambulatory ADAMS MONTILLA WOOD CARVER - DEBONING TEAM LEADER Facility:B Start: 02-24-2023 End: 02-24-2023 ambulatory [facility] Work Phone: Start: 02-24-2023 End: 02-24-2023 Patient encounter procedure [facility] Start: 09-28-2022 End: 09-28-2022 ambulatory [facility] Work Phone: Start: 09-28-2022 End: 09-28-2022 Patient encounter procedure [facility] Start: 08-31-2022 End: 09-04-2022 Outreach Lab ELZA ADAM [facility] Start: 08-24-2022 End: 08-24-2022 ambulatory [facility] Work Phone: Start: 08-24-2022 End: 08-24-2022 Patient encounter procedure [facility] Start: 02-23-2022 End: 02-23-2022 Patient encounter procedure [facility] Procedures Date Procedure Procedure Detail Performing Clinician Start: 02-22-2025 Vitamin D, 25-hydrox y measurement Adams HAILE Work Phone: Comment on above: Vitamin D StatusDefi ciency: <20 ng/mL (50nmol/L)Insufficiency: 20-30 ng/mL (50-75 nmol/L)Sufficiency: 30-100 ng/mL (75-250 nmol/L)Toxicity: >100 ng/mL (>250 nmol/L) Start: 12-20-2024 Screening mammography Tank Montilla NP-C Work Phone: Start: 12-06-2023 Screening mammography Start: 09-28-2022 Dual energy X-ray absorptiometry Start: 09-28-2022 Screening mammography Start: 10-17-2018 Cataract (disorder) KRI STA MAST WOOD CARVER-DEBONING TEAM LEADER Comment on above: Bilateral Start: 10-17-1991 Tubal ligation done KRI STA MAST [employer]VER-DEBONING TEAM LEADER Bilateral bone spur of calcaneum (disorder) ELZA ADAM MD Ligation of fallopian tube A NEHA ADAM MD Immunizations Immunization Date Immunization Notes Care Provider [facility] 09-03-2022 influenza, high dose seasonal, preservative-free [facility] 03-11-2022 SARS-CoV-2 (COVID-19 ) mRNA-1273 vaccine MANJIT MAST [employer]DEBONING TEAM LEADER [facility] 09-14-2021 SARS-CoV-2 (COVID-19 ) mRNA-1273 vaccine ELZA ADAM MD [facility] 01-14-2021 COVID-19, mRNA, LNP- S, PF, 100 mcg or 50 mcg dose; Translations: [Moderna COVID-19 Vaccine] ELZA ADAM MD [facility] Vaccine [facility] 12-17-2020 COVID-19, mRNA, LNP- S, PF, 100 mcg or 50 mcg dose; Translations: [Moderna COVID-19 Vaccine] ELZA ADAM MD [facility] Vaccine [facility] Comment on above: Result Comment: Bebo Hayes Payers Date Payer Category Payer Self-pay [id number] 2023 Unknown [id number] 2015 Unknown [id number] 1957 Unknown [id number] 2.16.8 [id number] 1957 Unknown [id number] 2.16.8 [id number] 1957 Unknown [id number] 2.16.8 [id number] 1955 Unknown [id number] 2.16.8 [id number] Self-pay [id number] Unknown [id number] Unknown [facility] P[facility] PLAN [id number] Unknown [id number] 2.16.8 [id number] Unknown [id number] 2.16.8 [id number] Unknown [id number] 2.16.8 [id number] Unknown [id number] 2.16.8 [id number] Social History Date Type Detail Facility [facility] Work Phone: Start: 1955 Sex Assigned At Female A [facility] Start: 2019 Tobacco smoking status Ex-smoker (fi nding) [facility] ever [facility] Work Phone: Start: 01-01-2025 Sex Female (finding) [facility] Evaluation + Plan note LaboratoryRadiology Note Date & Type Note Facility Evaluation + Plan note Future Appointments Appointment Date:10/26/2022 09:00:00 AM Scheduled Provider:ADAMS MONTILLA APRN, CNP Location:[facility] Appointment Type:[facility] Appointment Date:03/04/2023 10:20:00 AM Scheduled Provider:ADAMS MONTILLA APRN, CNP Location:[facility] Appointment Type: OV Follow Up Diagnostic Tests PendingHPV Screen, DNA Probe 08/31/22 Future Scheduled TestsComplete Blood Count 03/03/23Lipid Profile 03/03/23Microalbumin Level Urine 03/03/23Vitamin D Level 03/03/23Complete Metabolic Panel 03/03/23MA Mammo Screening Bilateral w/ Ollie 08/31/22BD Bone Density DEXA Axial Skeleton 09/03/22 [facility] Evaluation + Plan note LaboratoryRadiology Note Date & Type Note Facility Evaluation + Plan note Future Appointments Appointment Date:09/02/2023 10:20:00 AM Scheduled Provider:ADAMS MONTILLA APRN, CNP Location:[facility] Appointment Type:PC OV Follow Up Appointment Date:09/20/2023 01:30:00 PM Scheduled Provider:ELZA ADAM MD Location: [facility] Appointment Type: OV Annual Exam Future Scheduled TestsMicroalbumin Level Urine 03/03/23MA Mammo Screening Bilateral w/ Ollie 08/31/22BD Bone Density DEXA Axial Skeleton 09/03/22 [facility] Evaluation note Note Date & Type Note Facility Evaluation note No assessment [facility] Work Phone: Hospital course Narrative Note Date & Type Note Facility Hospital course Narrative No data available for this section [facility] Hospital Discharge instructions Note Date & Type Note Facility Hospital Discharge instructions No data available for this section [facility] Progress note Note Date & Type Note Facility Progress note No data available for this section [facility] Reason for referral (narrative) Note Date & Type Note Facility Reason for referral (narrative) No reason for referral information available [facility] Work Phone: Chief Complaint and Reason for Visit Chief Complaint SCREENING Chief Complaint SCREENING Chief Complaint Admit Date SCREENING December 20, 2024 10:2 1am Chief Complaint Admit Date SCREENING December 20, 2024 10:2 1am FASTING February 22, 2025 8:06am Summary Purpose Family History No Family History Records Found Advance Directives No Advanced Directives Records FoundNo Advanced Directives Records Found Additional Source Comments Goals (unrecognized section and content) Goals may be documented in a n alternate section No data available for this sectionGoals may be documented in an alternate sectionGoals may be documented in an alternate section No data available for this sectionGoals may be documented in an alternate sectionGoals may be documented in an alternate sectionGoals may be documented in an alternate section Care Team (unrecognized sect ion and content) Care Team Personnel Name: ADAMS MONTILLA WOOD CARVER - DEBONING TEAM LEADER Position: P4 Advanced Practice Nurse Member Role: Primary Care Physician Address: Address: [address] [place], [place] [address] Care Team Related Persons Name: LAURA ROJAS Address: [address] [place] [address] [place], [place] [id number] Address: [address] [place], [place] [id number] Care Teams (unrecognized sec tion and content) Team Status: Active Member Role Status Dates Adams Montilla SOLUTIONS DEVELOPMENT ANALYST, SOLUTIONS DEVELOPMENT ANALYST-C Family Provider Activ e Adams Montilla SOLUTIONS DEVELOPMENT ANALYST, SOLUTIONS DEVELOPMENT ANALYST-C Primary Care Provider Active Team Status: Inactive Member Role Status Dates Adams Montilla NP, SOLUTIONS DEVELOPMENT ANALYST-C Primary Care Provider, Attending Provider, Referring Provider Active Team Status: Inactive Member Role Status Dates Adams Montilla SOLUTIONS DEVELOPMENT ANALYST, SOLUTIONS DEVELOPMENT ANALYST-C Primary Care Provider Active Dr. Branden James MD Attending Provider, Referring P jess Active Team Status: Active Member Role Status Dates Adams Montilla SOLUTIONS DEVELOPMENT ANALYST, SOLUTIONS DEVELOPMENT ANALYST-C Primary Care Provider Active Team Status: Inactive Member Role Status Dates Adams Montilla SOLUTIONS DEVELOPMENT ANALYST, SOLUTIONS DEVELOPMENT ANALYST-C Primary Care Provider Active Start: December 20, 2024 End: December 20, 2024 Dr. Elza Adam MD Attending Provider Active Start: December 20, 2024 End: December 20, 2024 Dr. Elza Adam MD Referring Provider Active Start: December 20, 2024 End: December 20, 2024 Team Status: Inactive Member Role Status Dates Adams Montilla SOLUTIONS DEVELOPMENT ANALYST, SOLUTIONS DEVELOPMENT ANALYST-C Primary Care Provider Active Start: February 22, 2025 End: February 22, 2025 Adams Montilla SOLUTIONS DEVELOPMENT ANALYST, SOLUTIONS DEVELOPMENT ANALYST-C Attending Provider Ac tive Start: February 22, 2025 End: February 22, 2025 Adams Montilla SOLUTIONS DEVELOPMENT ANALYST, SOLUTIONS DEVELOPMENT ANALYST-C Referring Provider Dimas barnes Start: February 22, 2025 End: February 22, 2025 INFORMATION SOURCE (unrecogn ized section and content) DATE CREATED AUTHOR 09/26/2023 [facility] DATE CREATED AUTHOR AUTHOR'Javi RIDER ATOLIVERIO 03/29/2025 [facility] FOR RECORDS PERTAINING TO PATIENTS WHO ARE [...] BE BASED ON THE PRIMARY CLINICAL RECORDS. [employer] provides no warranty or guarantee of the accuracy or completeness of information in this document.
[2025-04-04 12:09] LABS: QNTFERON TB Mitogen Value > 10.00 IU/mL (.); QNTFERON TB Nil Value 0.03 IU/mL (.); QNTFERON TB1+ Ag Value 0.65 IU/mL (.); QNTIFERON TB Positive Criteria Positive (Negative)
== END | disposition home or self-care (01) ==
LOC: MTLAB 10:45
PROVIDERS: PCP Nurse Practitioner Family; Referring Provider Dermatology; Visit Provider Dermatology
DX: Z79.899 Other long term (current) drug therapy (principal)
CPT/HCPCS: 36415; 86480

== ENCOUNTER → 2025-04-04 | Outpatient (CLI) | payer MEDICARE, SELFPAY ==
--- NOTE | 2025-04-04 15:15 | RAD_ITS ---
PROCEDURE: CHEST PA AND LATERAL 04/04/2025 REASON FOR EXAM: INTERMEDIATE DRUG THERAPY TECHNIQUE: CHEST PA AND LATERAL COMPARISON: None. FINDINGS: The lungs are expanded. There is no demonstrated parenchymal abnormality. There is no demonstrated pleural abnormality. Normal heart and pericardium. Normal mediastinum and krissy. Normal visualized pulmonary arteries. Normal visualized aortic arch and descending thoracic aorta. Diffuse spondylosis of the visualized thoracic spine. Normal visualized ribs, clavicles, and shoulders. There is no demonstrated abnormality of the visualized soft tissue structures of the upper abdomen. RAD/Chest PA and Lateral IMPRESSION: No evidence for acute abnormality. Reading [facility]
== END | disposition home or self-care (01) ==
LOC: MTRAD 15:00
PROVIDERS: PCP Nurse Practitioner Family; Referring Provider Dermatology; Visit Provider Dermatology
DX: Z79.899 Other long term (current) drug therapy (principal)
CPT/HCPCS: 71046

== ENCOUNTER → 2025-08-23 | Outpatient (CLI) | payer MEDICARE, SELFPAY ==
--- OUTSIDE RECORDS SUMMARY | 2025-08-23 07:31 | XMS RPT_ITS | CCD ---
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 Name Role Phone ROLDAN PATTERNMAKER PLASTICS - TROLLEY COLLECTOR, DANIEL Mccloud Primary Care Phys ician ROLDAN PATTERNMAKER PLAST[employer] - TROLLEY COLLECTOR, DANIEL Mccloud Primary Care U navailable MAST PATTERNMAKER PLASTICS-TROLLEY COLLECTOR, MANJIT Attending Unavailtrace e ALLYSSA DE LA PAZ, REGINA Attending Unavailable ROLDAN PATTERNMAKER PLASTICS - TROLLEY COLLECTOR, DANIEL Mccloud Primary Care U sherrie SPIVEY MD, REGINA Consulting Clint SPIVEY MD, REGINA Attending Unavailable ROLDAN PATTERNMAKER PLAST[employer] - TROLLEY COLLECTOR, DANIEL Mccloud Primary Care U navailable ROLDAN PATTERNMAKER PLAST[employer] - TROLLEY COLLECTOR, DANIEL Mccloud Primary Care U navailable ROLDAN PATTERNMAKER PLAST[employer] - TROLLEY COLLECTOR, DANIEL Mccloud Attending U navailable [place] PRIVATE DUTY NURSE-C, Daniel Paz Primary Care Provi melissa Nancy DE LA PAZ, Dr. Bertrand Attending Provider Dr. Elza Adam MD Referring Provider [place] PRIVATE DUTY NURSE-C, Daniel Paz Attending Provider Roldan PRIVATE DUTY NURSE-C, Daniel Paz Referring Provider Librado DE LA PAZ, Dr. Clement Attending Provider Librado DE LA PAZ, Dr. Clement Referring Provider [phone] ROLDAN MARSHALL - ISRA, DANIEL Mccloud Primary Care U navailable SUPPAN JEFF ZAPATA Attending Unavailable SUPPAN JEFF ZAPATA Attending Unavailable ROLDAN PATTERNMAKER PLAST[employer] - TROLLEY COLLECTOR, DANIEL Mccloud Primary Care U navailable Urbano Pavon Referring Unavailable Urbano Pavon Attending Unavailable Roldan PRIVATE DUTY NURSE, Daniel Paz Primary Care Unav ailable Roldan PRIVATE DUTY NURSE, Daniel Paz Primary Care Unav ailable Roldan PRIVATE DUTY NURSE, Daniel Paz Attending Unav ailable Roldan PRIVATE DUTY NURSE, Daniel Paz Referring Unav ailable Nancy, Elza Attending Unavailable Nancy, Elza Referring Unavailable Roldan PRIVATE DUTY NURSE, Daniel Paz Primary Care Unav ailable Roldan PRIVATE DUTY NURSE, Daniel Paz Primary Care Unav ailable [place] PRIVATE DUTY NURSE, Daniel Paz Attending Unav ailable Roldan PRIVATE DUTY NURSE, Daniel Paz Referring Unav ailable Urbano Pavon Attending Unavailable iLbrado, Urbano Referring Unavailable Roldan PRIVATE DUTY NURSE, Daniel Paz Primary Care Unav ailable Urbano Pavon Referring Unavailable Roldan PRIVATE DUTY NURSE, Daniel Paz Primary Care Unav ailable Urbano Pavon Attending Unavailable Librado, Urbano Referring Unavailable [place] PRIVATE DUTY NURSE, Daniel Paz Primary Care Unav ailable Urbano Pavon Attending Unavailable Allergies Allergy Classification Reported Allergen(s) Allergy Type Date of Onset Reaction(s) Facility (2 sources) Penicillins; Translations: [penicillins] Drug allergy Unknown (qualifier value) [facility] Penicillin; Translations: [penicillins] Drug Allergy Unknown (qualifier value) [facility] Medications Current Medications Medication Drug Class(es) Dates Sig (Normalized) Sig (Original) ergocalciferol 1.25 mg oral capsule (4 sources) Provitamin D2 Compound Start: 03-01-2025 End: 08-28-2025 ergocalciferol 50,000 intl units (1.25 mg) oral capsule Dose : 50,000 International_Unit = 1 cap(s), Oral, every other week, # 7 cap(s), 1 Refill(s), Pharmacy: [facility], 175, cm, 03/01/25 9:24:00 EDT, Height, kg, 03/01/25 9:24:00 EDT, Dosing Weight Start Date: 03/01/25 Stop Date: 08/28/25 Status: Ordered Medication Dispense Status: Completed Quantity: 7.0 Unit: cap(s) Total Allowed Fills: 2 Fills Dispensed: 0 Start: 03-04-2023 End: 06-02-2023 ergocalciferol 50,000 intl u nits (1.25 mg) oral capsule Dose : 50,000 International_Unit = 1 cap(s), Oral, every other week, # 7 cap(s), 0 Refill(s), Pharmacy: [facility] ([facility] ), 175, cm, 03/04/23 10:56:00 EDT, Height, kg, 03/04/23 10:56:00 EDT, Dosing Weight Start Date: 03/04/23 Stop Date: 06/02/23 Status: Ordered Start: 09-03-2022 End: 03-02-2023 ergocalciferol 50,000 intl u nits (1.25 mg) oral capsule Dose : 50,000 International_Unit = 1 cap(s), Oral, every other week, # 7 cap(s), 1 Refill(s), Pharmacy: [facility] ([facility]), 174, cm, 09/03/22 10:35:00 EST, Height, kg, 09/03/22 10:35:00 EST, Dosing Weight Start Date: 09/03/22 Stop Date: 03/02/23 Status: Ordered hydroCHLOROthiazide 25 mg oral tablet (4 sources) Thiazide Diuretic Start: 03-01-2025 hydroCHLOROthiazide 25 mg oral tablet Dose : 25 mg = 1 tab(s), Oral, qDay, # 90 tab(s), 1 Refill(s), Pharmacy: [facility], 175, cm, 03/01/25 9:24:00 EDT, Height, kg, 03/01/25 9:24:00 EDT, Dosing Weight Start Date: 03/01/25 Status: Ordered Medication Dispense Status: Completed Quantity: 90.0 Unit: tab(s) Total Allowed Fills: 2 Fills Dispensed: 0 Start: 08-19-2023 hydroCHLOROthi azide 25 mg oral tablet Dose : 25 mg = 1 tab(s), Oral, qDay, # 90 tab(s), 0 Refill(s), [facility], 175, cm, 08/16/23 13:56:00 EDT, Height, kg, 08/16/23 13:56:00 EDT, Dosing Weight Start Date: 08/19/23 Status: Ordered Start: 09-03-2022 hydroCHLOROthi azide 25 mg oral tablet Dose : 25 mg = 1 tab(s), Oral, qDay, # 90 tab(s), 1 Refill(s), Pharmacy: [facility] ([facility]), 174, cm, 09/03/22 10:35:00 EST, Height, kg, 09/03/22 10:35:00 EST, Dosing Weight Start Date: 09/03/22 Status: Ordered lisinopril 40 mg oral tablet (4 sources) Angiotensin Converting Enzyme Inhibitor Start: 03-01-2025 lisinopril 40 mg ora l tablet Dose : 40 mg = 1 tab(s), Oral, qDay, # 90 tab(s), 1 Refill(s), Pharmacy: [facility], 175, cm, 03/01/25 9:24:00 EDT, Height, kg, 03/01/25 9:24:00 EDT, Dosing Weight Start Date: 03/01/25 Status: Ordered Medication Dispense Status: Completed Quantity: 90.0 Unit: tab(s) Total Allowed Fills: 2 Fills Dispensed: 0 Start: 03-04-2023 lisinopril 40 mg oral tablet Dose : 40 mg = 1 tab(s), Oral, qDay, # 90 tab(s), 1 Refill(s), Pharmacy: [facility] ([facility] 175, cm, 03/04/23 10:56:00 EDT, Height, kg, 03/04/23 10:56:00 EDT, Dosing Weight Start Date: 03/04/23 Status: Ordered Start: 09-03-2022 lisinopril 40 mg oral tablet Dose : 40 mg = 1 tab(s), Oral, qDay, # 90 tab(s), 1 Refill(s), Pharmacy: [facility] ([facility]), 174, cm, 09/03/22 10:35:00 EST, Height, kg, 09/03/22 10:35:00 EST, Dosing Weight Start Date: 09/03/22 Status: Ordered magnesium oxide 250 mg oral tablet (4 sources) Start: 08-28-2019 take 1 mg by mouth once daily Magnesium 250 mg tablet mg = tab(s), Oral, qDay, 0 Refill(s) Start Date: 08/28/19 Status: Ordered Medication Dispense Status: Completed Total Allowed Fills: 1 Fills Dispensed: 0 Multivitamin preparation (4 sources) Start: 08-28-2019 take 1 tablet by mouth once daily Multivitamin Dose = 1 tab(s), Oral, Daily, 0 Refill(s) Start Date: 08/28/19 Status: Ordered Medication Dispense Status: Completed Total Allowed Fills: 1 Fills Dispensed: 0 Start: 08-28-2019 take 1 tablet by colten th once daily Multivitamin Dose = 1 tab(s), Oral, Daily, 0 Refill(s) Start Date: 08/28/19 Status: Ordered Repeat number: 1 Start: 08-28-2019 take 1 tablet by colten th once daily Multivitamin Dose = 1 tab(s), Oral, Daily, 0 Refill(s) Start Date: 08/28/19 Status: Ordered naproxen 500 mg oral tablet (4 sources) Nonsteroidal Anti-inflammatory Drug Start: 03-01-2025 End: 08-28-2025 naproxen 500 mg oral tablet Dose : 500 mg = 1 tab(s), Oral, BID, PRN as needed for arthritis, # 180 tab(s), 1 Refill(s), Pharmacy: [facility], Psoriatic arthritis, 175, cm, 03/01/25 9:24:00 EDT, Height, kg, 03/01/25 9:24:00 EDT, Dosing Weight Start Date: 03/01/25 Stop Date: 08/28/25 Status: Ordered Medication Dispense Status: Completed Quantity: 180.0 Unit: tab(s) Total Allowed Fills: 2 Fills Dispensed: 0 Indications: Arthropathic psoriasis, unspecified; Start: 03-04-2023 naproxen 500 m g oral tablet Dose : 500 mg = 1 tab(s), Oral, BID, # 180 tab(s), 1 Refill(s), Pharmacy: [facility] ([facility] 175, cm, 03/04/23 10:56:00 EDT, Height, kg, 03/04/23 10:56:00 EDT, Dosing Weight Start Date: 03/04/23 Status: Ordered Start: 09-03-2022 naproxen 500 m g oral tablet Dose : 500 mg = 1 tab(s), Oral, BID, # 180 tab(s), 1 Refill(s), Pharmacy: [facility] ([facility]), 174, cm, 09/03/22 10:35:00 EST, Height, kg, 09/03/22 10:35:00 EST, Dosing Weight Start Date: 09/03/22 Status: Ordered omeprazole 40 mg delayed release oral capsule (4 sources) Proton Pump Inhibitor Start: 03-01-2025 omeprazo le 40 mg oral delayed release capsule Dose : 40 mg = 1 cap(s), Oral, qDay, # 90 cap(s), 1 Refill(s), [facility], 175, cm, 03/01/25 9:24:00 EDT, Height, kg, 03/01/25 9:24:00 EDT, Dosing Weight Start Date: 03/01/25 Status: Ordered Medication Dispense Status: Completed Quantity: 90.0 Unit: cap(s) Total Allowed Fills: 2 Fills Dispensed: 0 Start: 03-04-2023 omeprazole 40 mg oral delayed release capsule Dose : 40 mg = 1 cap(s), Oral, qDay, # 90 cap(s), 1 Refill(s), [facility] 175, cm, 03/04/23 10:56:00 EDT, Height, kg, 03/04/23 10:56:00 EDT, Dosing Weight Start Date: 03/04/23 Status: Ordered Start: 09-03-2022 omeprazole 40 mg oral delayed release capsule Dose : 40 mg = 1 cap(s), Oral, qDay, # 90 cap(s), 1 Refill(s), Pharmacy: [facility] ([facility]), 174, cm, 09/03/22 10:35:00 EST, Height, kg, 09/03/22 10:35:00 EST, Dosing Weight Start Date: 09/03/22 Status: Ordered Vitamin B6 50 mg oral tablet (2 sources) Start: 05-15-2025 Vitamin B6 50 mg oral tablet Dose : 50 mg = 1 tab(s), Oral, Daily, 0 Refill(s) Start Date: 05/15/25 Status: Ordered Medication Dispense Status: Completed Total Allowed Fills: 1 Fills Dispensed: 0 Start: 05-15-2025 Vitamin B6 50 mg oral tablet Dose : 50 mg = 1 tab(s), Oral, Daily, 0 Refill(s) Start Date: 05/15/25 Status: Ordered Repeat number: 1 Completed/Discontinued Medications Medication Drug Class(es) Dates Sig (Normalized) Sig (Original) isoniazid 300 mg oral tablet (2 sources) Antimycobacterial Start: 05-15-2025 isoniazid 300 mg oral tablet Dose : 300 mg = 1 tab(s), Oral, qDay, 0 Refill(s), 100 Start Date: 05/15/25 Status: Ordered Medication Dispense Status: Completed Total Allowed Fills: 1 Fills Dispensed: 0 Problems Active Problems Problem Classification Problem Date Documented Da te Episodic/Chronic Abdominal hernia (3 sources) Umbilical hernia 08-16-2023 Episodic Deficiency and other anemia (4 sources) Anemia 09-01-2021 Episodic Disorders of lipid metabolism (4 sources) Hyperlipidemia 2019 Chronic Esophageal disorders (4 sources) Gastroesophageal reflux disease 02-26-2020 Chronic Essential hypertension (7 sources) Hypertensive disorder; Translations: [Essential (primary) hypertension] Onset: 3 08-28-2019 Chronic Heart valve disorders (4 sources) Heart murmur 02-26-2020 Episodic Nausea and vomiting (1 source) Nausea 08-16-2023 Episodic Nutritional deficiencies (4 sources) Vitamin D deficiency 2019 Chronic Other gastrointestinal disorders (1 source) Abdominal bloating 08-16-2023 Episodic Other gastrointestinal disorders (1 source) Diarrhea 08-16-2023 Episodic Other inflammatory condition of skin (4 sources) Psoriatic arthritis 2019 Chronic Other inflammatory condition of skin (1 source) Psoriasis vulgaris; Translations: [Psoriasis vulgaris] Onset: Chronic Other nutritional; endocrine; and metabolic disorders (2 sources) Body mass index 30+ - obesity 03-01-2025 Chronic Residual codes; unclassified (4 sources) Increased body mass index 02-26-2020 Episodic Residual codes; unclassified (4 sources) Postmenopausal state 09-03-2022 Episodic Residual codes; unclassified (3 sources) Not up to date with immunizations 10-26-2022 Episodic Unclassified (4 sources) Non-smoker 03-04-2022 Unclassified (4 sources) Vaccination needed 09-03-2022 Unclassified (3 sources) Cancer cervix screening status 10-26-2022 Unclassified (20 sources) Patient encounter status 10-26-2022 Past or Other Problems Problem Classification Problem Date Documented Da te Episodic/Chronic Other aftercare (1 source) Other intermediate designer (current) drug therapy; Translations: [Other correction (current) drug therapy] Onset: 04-12-2025 Episodic Other screening for suspected conditions (not mental disorders or infectious disease) (1 source) Encounter for screening mammogram for malignant neoplasm of breast; Translations: [Encounter for screening mammogram for malignant neoplasm of breast] Onset: 01-01-2025 Episodic Results Test Name Value Interpretation Reference Range Facility Chest PA and Lateralon 04-04 Chest PA and Lateral [facility] Services [address] [place], [place] [id number] Chest PA and Lateral MR#: [id number] Acct: [id number] Name: SAV ROJAS Rep #: [id number] : 1955 F 69 From: John barclay MD PCP: LUCY GuzmanC Status: REG CLI Study: Chest PA and Lateral Date of Exam: 04/04/25 Exam# [id number] Ordering Dr: Urbano Pavon MD PROCEDURE: CHEST PA AND LATERAL 04/04/2025 REASON FOR EXAM: INSIDE W[employer] THERAPY TECHNIQUE: CHEST PA AND LATERAL COMPARISON: None. FINDINGS: The lungs are expanded. There is no demonstrated parenchymal abnormality. There is no demonstrated pleural abnormality. Normal heart and pericardium. Normal mediastinum and krissy. Normal visualized pulmonary arteries. Normal visualized aortic arch and descending thoracic aorta. Diffuse spondylosis of the visualized thoracic spine. Normal visualized ribs, clavicles, and shoulders. There is no demonstrated abnormality of the visualized soft tissue structures of the upper abdomen. RAD/Chest PA and Lateral IMPRESSION: No evidence for acute abnormality. [facility]: PRIVATE DUTY NURSEJairon Montilla; Dr. Urbano Pavon MD Canal Tender: Signed Normal [facility] Quantiferon TB-Gold+on 04-04 QFT MITOGEN MILTON > 10.00 Normal . [facility] Comment on above: Performed By: #### L 3400.8000 #### [facility] [address] [place], [address] QFT NIL VALUE 0.03 IU/mL Normal . [facility] Comment on above: Performed By: #### L 3400.8000 #### [facility] [address] [place], [address] QFT TB GOLD+ Comment Normal . [facility] Comment on above: Result Comment: Humberto [...] for the test. Performed By: #### L 3400.8000 #### [facility] [address] [place], [address] QFT TB POS CRIT Positive Abnormal Negative [facility] Comment on above: Result Comment: Sherice [...] of interferon gamma. Chemiluminescence immunoassay methodology Performed at: [facility] [employer] [id number] Hotel Receptionist: Gio Brice PhD, Phone: [phone] Performed By: #### L 3400.8000 #### [facility] [address] [place], [address] QFT TB1+ AG MILTON 0.65 IU/mL Normal . [facility] Comment on above: Performed By: #### L 3400.8000 #### [facility] [address] [place], [address] QFT TB2+ AG MILTON 0.60 IU/mL Normal . [facility] Comment on above: Performed By: #### L 3400.8000 #### [facility] [address] [place], [address] Qualitative QuantiFERON-TB g old in tube testOrdered By: Urbano Pavon on 04-02-2025 M. tuberculosis tuberculin stim IFN-g Ql (Bld) 0.65 IU/mL . [facility] Hepatitis B Core AB IgMon HEP B CORE,IgM Negative Normal Negative [facility] Comment on above: Result Comment: Perf ormed at: [facility] [employer] [id number] Hotel Receptionist: Gio Brice PhD, Phone: [phone] Performed By: #### L 100.0100, L3400.8000, L3100.0420, L3890.6301, L3100.0440, L500.3400, L3890.6202 #### [facility] [address] [place], [address] Hepatitis Be Agon 03-29-2025 HEP Be AG Negative Normal Negative [facility] Comment on above: Performed By: #### L 100.0100, L3400.8000, L3100.0420, L3890.6301, L3100.0440, L500.3400, L3890.6202 #### [facility] [address] [place], [address] Quantiferon TB-Gold+on 03-29 QFT MITOGEN MILTON 9.61 IU/mL Normal . [facility] Comment on above: Performed By: #### L 100.0100, L3400.8000, L3100.0420, L3890.6301, L3100.0440, L500.3400, L3890.6202 #### [facility] [address] [place], [address] QFT NIL VALUE 0.07 IU/mL Normal . [facility] Comment on above: Performed By: #### L 100.0100, L3400.8000, L3100.0420, L3890.6301, L3100.0440, L500.3400, L3890.6202 #### [facility] [address] [place], [address] QFT TB GOLD+ Comment Normal . [facility] Comment on above: Result Comment: Humberto [...] for the test. Performed By: #### L 100.0100, L3400.8000, L3100.0420, L3890.6301, L3100.0440, L500.3400, L3890.6202 #### [facility] [address] [place], [address] QFT TB POS CRIT Positive Abnormal Negative [facility] Comment on above: Result Comment: Sherice [...] Chemiluminescence immunoassay methodology Performed By: #### L 100.0100, L3400.8000, L3100.0420, L3890.6301, L3100.0440, L500.3400, L3890.6202 #### [facility] [address] [place], [place], [address] QFT TB1+ AG MILTON 0.49 IU/mL Normal . [facility] Comment on above: Performed By: #### L 100.0100, L3400.8000, L3100.0420, L3890.6301, L3100.0440, L500.3400, L3890.6202 #### [facility] [address] [place], [place], [address] QFT TB2+ AG MILTON 0.47 IU/mL Normal . [facility] Comment on above: Performed By: #### L 100.0100, L3400.8000, L3100.0420, L3890.6301, L3100.0440, L500.3400, L3890.6202 #### [facility] [address] [place], [place], [id number] Absolute lymphocyte countOrd ered By: Urbano Pavon on 03-27-2025 Lymphocytes Auto (Unsp spec) [#/Vol] 1.42 10*3/uL 0.83-4.51 [facility] Absolute neutrophil countOrd ered By: Urbano Pavon on 03-27-2025 Neutrophils (Bld) [#/Vol] 3.8 10*3/uL 2.0-7.7 [facility] Automated lymphocyte count a s percentage of total leukocytesOrdered By: Urbano Pavon on 03-27-2025 Lymphocytes/100 WBC Auto (Unsp spec) 24.8 % 19-41 [facility] Basophil percentageOrdered B y: Urbano Pavon on 03-27-2025 Basophils/100 WBC (Bld) 0.9 % 0-1 [facility] Bilirubin directOrdered By: Urbano Pavon on 03-27-2025 Bilirubin.direct [Mass/Vol] 0.11 mg/dL 0.00-0.30 [facility] Bilirubin, totalOrdered By: Urbano Pavon on 03-27-2025 Bilirubin [Mass/Vol] 0.24 mg/dL 0.00-1.30 [facility] CBC W/Diff, Automatedon 03-17 Absolute Lymph 1.42 X10 3/uL Normal 0.83-4.51 [facility] Comment on above: Performed By: #### L 100.0100, L3400.8000, L3100.0420, L3890.6301, L3100.0440, L500.3400, L3890.6202 #### [facility] [address] [place], [address] Absolute Neut 3.8 X10 3/uL Normal 2.0-7.7 [facility] Comment on above: Performed By: #### L 100.0100, L3400.8000, L3100.0420, L3890.6301, L3100.0440, L500.3400, L3890.6202 #### [facility] [address] [place], [address] Basophils/100 WBC (Bld) 0.9 % Normal 0-1 [facility] Comment on above: Performed By: #### L 100.0100, L3400.8000, L3100.0420, L3890.6301, L3100.0440, L500.3400, L3890.6202 #### [facility] [address] [place], [address] Eosinophils/100 WBC (Bld) 2.3 % Normal 0-5 [facility] Comment on above: Performed By: #### L 100.0100, L3400.8000, L3100.0420, L3890.6301, L3100.0440, L500.3400, L3890.6202 #### [facility] [address] [place], [address] Erythrocyte distribution width (RBC) [Ratio] 12.7 % Normal 11.6-14.6 [facility] Comment on above: Performed By: #### L 100.0100, L3400.8000, L3100.0420, L3890.6301, L3100.0440, L500.3400, L3890.6202 #### [facility] [address], [address] Hematocrit (Bld) [Volume fraction] 37.7 % Normal 37-47 [facility] Comment on above: Performed By: #### L 100.0100, L3400.8000, L3100.0420, L3890.6301, L3100.0440, L500.3400, L3890.6202 #### [facility] [address] [place], [address] Hemoglobin (Bld) [Mass/Vol] 12.6 g/dL Normal 12.0-15.0 [facility] Comment on above: Performed By: #### L 100.0100, L3400.8000, L3100.0420, L3890.6301, L3100.0440, L500.3400, L3890.6202 #### [facility] [address], [address] IG% 0.300 Normal 0.0-0.9 [facility] Comment on above: Result Comment: IG% - Immature Granulocytes (promyelocytes, myelocytes and metamyelocytes) > 1% indicates that a LEFT SHIFT is Present. Performed By: #### L 100.0100, L3400.8000, L3100.0420, L3890.6301, L3100.0440, L500.3400, L3890.6202 #### [facility] [address] [place], [address] Lymphocytes/100 WBC (Bld) 24.8 % Normal 19-41 [facility] Comment on above: Performed By: #### L 100.0100, L3400.8000, L3100.0420, L3890.6301, L3100.0440, L500.3400, L3890.6202 #### [facility] [address] [place], [address] MCH (RBC) [Entitic mass] 31.3 pg Normal 27.0-32.0 [facility] Comment on above: Performed By: #### L 100.0100, L3400.8000, L3100.0420, L3890.6301, L3100.0440, L500.3400, L3890.6202 #### [facility] [address] [place], [address] MCHC (RBC) [Mass/Vol] 33.4 g/dL Normal 32-36 [facility] Comment on above: Performed By: #### L 100.0100, L3400.8000, L3100.0420, L3890.6301, L3100.0440, L500.3400, L3890.6202 #### [facility] [address] [place], [address] MCV (RBC) [Entitic vol] 93.5 fL Normal 81-99 [facility] Comment on above: Performed By: #### L 100.0100, L3400.8000, L3100.0420, L3890.6301, L3100.0440, L500.3400, L3890.6202 #### [facility] [address] [place], [address] Monocytes/100 WBC (Bld) 5.9 % Normal 0-10 [facility] Comment on above: Performed By: #### L 100.0100, L3400.8000, L3100.0420, L3890.6301, L3100.0440, L500.3400, L3890.6202 #### [facility] [address] [place], [address] Neutrophils/100 WBC (Bld) 65.8 % Normal 47-70 [facility] Comment on above: Performed By: #### L 100.0100, L3400.8000, L3100.0420, L3890.6301, L3100.0440, L500.3400, L3890.6202 #### [facility] [address] [place], [address] Nucleated RBC (Bld) [#/Vol] 0 10*3/uL Normal 0-5 [facility] Comment on above: Performed By: #### L 100.0100, L3400.8000, L3100.0420, L3890.6301, L3100.0440, L500.3400, L3890.6202 #### [facility] [address] [place], [address] Platelet mean volume (Bld) [Entitic vol] 9.9 fL Normal 6.2-12.0 [facility] Comment on above: Performed By: #### L 100.0100, L3400.8000, L3100.0420, L3890.6301, L3100.0440, L500.3400, L3890.6202 #### [facility] [address] [place], [address] Platelets (Bld) [#/Vol] 332 10*3/uL Normal 150-450 [facility] Comment on above: Performed By: #### L 100.0100, L3400.8000, L3100.0420, L3890.6301, L3100.0440, L500.3400, L3890.6202 #### [facility] [address] [place], [address] RBC (Bld) [#/Vol] 4.03 10*6/uL Low 4.2-5.4 [facility] Comment on above: Performed By: #### L 100.0100, L3400.8000, L3100.0420, L3890.6301, L3100.0440, L500.3400, L3890.6202 #### [facility] Laboratory [address] [place], [place], [id number] RDW SD 43.7 fl Normal 35.1-43.9 [facility] Comment on above: Performed By: #### L 100.0100, L3400.8000, L3100.0420, L3890.6301, L3100.0440, L500.3400, L3890.6202 #### [facility] Laboratory [address] [place], [address] (209) WBC (Bld) [#/Vol] 5.7 10*3/uL Normal 4.4-11.0 [facility] Comment on above: Performed By: #### L 100.0100, L3400.8000, L3100.0420, L3890.6301, L3100.0440, L500.3400, L3890.6202 #### [facility] Laboratory [address] [place], [address] Eosinophil percentageOrdered By: Urbano Pavon on 03-27-2025 Eosinophils/100 WBC (Bld) 2.3 % 0-5 [facility] Erythrocyte distribution wid th ratioOrdered By: Urbano Pavon on 03-27-2025 Erythrocyte distribution width (RBC) [Ratio] 12.7 % 11.6-14.6 [facility] Erythrocyte distribution wid th standard deviationOrdered By: Urbano Pavon on 03-27-2025 Erythrocyte distribution width (RBC) [Ratio] 43.7 fl 35.1-43.9 [facility] Hematocrit Auto (Bld) [Volum e fraction]Ordered By: Urbano Pavon on 03-27-2025 Hematocrit (Bld) [Volume fraction] 37.7 % 37-47 [facility] Hemoglobin measurementOrdere d By: Urbano Pavon on 03-27-2025 Hemoglobin (Bld) [Mass/Vol] 12.6 g/dL 12.0-15.0 [facility] Hepatitis B Surface Antibody on 03-27-2025 HEP B Surf Ab Non-Reactive Normal [facility] Comment on above: Result Comment: <8.5 mIU/mL: Non-Reactive 8.5<= x <11.5 mIU/mL: Indeterminate >=11.5 mIU/mL: Reactive Non Reactive: Inconsistent with immunity less than <10 mIU/mL Reactive: Consistent with immunity greater than or equal to 10 mIU/mL Performed By: #### L 100.0100, L3400.8000, L3100.0420, L3890.6301, L3100.0440, L500.3400, L3890.6202 #### [facility] Laboratory [address] [place], [place], [id number] Hepatitis C Antibodyon 03-27 Hepatitis C Ab Non-Reactive Normal Nonreactive [facility] Comment on above: Result Comment: Reac tive: Presumptive evidence of antibodies to HCV. Follow CDC recommendations for supplemental testing. Non-Reactive: Antibodies to HCV were not detected; does not exclude the possibility of exposure to HCV Reactive Results are presumptive evidence of antibodies to HCV. Follow CDC recommendations for supplemental testing. Order confirmation testing: HCV Quant by PCR testing - HCVPCR #[id number] Non Reactive: < 0.8 Equivocal: >/= 0.8 to < 1.0 Reactive: >/= 1.0 The CDC requires that a reactive/equivocal HCV antibody result be sent out for confirmation. HCV Quant by PCR testing. Performed By: #### L 100.0100, L3400.8000, L3100.0420, L3890.6301, L3100.0440, L500.3400, L3890.6202 #### [facility] Laboratory [address] [facility] [place], [place], [id number] Immature granulocytes/100 WB C Auto (Bld)Ordered By: Urbano Pavon on 03-27-2025 Immature granulocytes/100 WBC (Bld) 0.300 % 0.0-0.9 [facility] Comment on above: IG% - Immature Granu locytes (promyelocytes, myelocytes and metamyelocytes) > 1% indicates that a LEFT SHIFT is Present. Laboratory - Chemistry and C hemistry - challengeOrdered By: Urbano Pavon on 03-27-2025 AST [Catalytic activity/Vol] 24 U/L <32 [facility] Liver Profileon 03-27-2025 Albumin [Mass/Vol] 4.1 g/dL Normal 3.4-4.8 [facility] Comment on above: Performed By: #### L 100.0100, L3400.8000, L3100.0420, L3890.6301, L3100.0440, L500.3400, L3890.6202 #### [facility] Laboratory [address] [place], [address] ALK PHOS 79 U/L Normal 35-104 [facility] Comment on above: Performed By: #### L 100.0100, L3400.8000, L3100.0420, L3890.6301, L3100.0440, L500.3400, L3890.6202 #### [facility] Laboratory [address] [place], [address] ALT [Catalytic activity/Vol] 24 U/L Normal <=34 [facility] Comment on above: Performed By: #### L 100.0100, L3400.8000, L3100.0420, L3890.6301, L3100.0440, L500.3400, L3890.6202 #### [facility] Laboratory [address] [place], [address] AST [Catalytic activity/Vol] 24 U/L Normal <=31 [facility] Comment on above: Performed By: #### L 100.0100, L3400.8000, L3100.0420, L3890.6301, L3100.0440, L500.3400, L3890.6202 #### [facility] Laboratory [address] [place], [address] Bilirubin [Mass/Vol] 0.24 mg/dL Normal 0.00-1.30 [facility] Comment on above: Performed By: #### L 100.0100, L3400.8000, L3100.0420, L3890.6301, L3100.0440, L500.3400, L3890.6202 #### [facility] Laboratory [address] [place], [address] Bilirubin.direct [Mass/Vol] 0.11 mg/dL Normal 0.00-0.30 [facility] Comment on above: Performed By: #### L 100.0100, L3400.8000, L3100.0420, L3890.6301, L3100.0440, L500.3400, L3890.6202 #### [facility] Laboratory [address] [place], [address] Globulin (S) [Mass/Vol] 2.5 g/dL Normal 2.2-4.2 [facility] Comment on above: Performed By: #### L 100.0100, L3400.8000, L3100.0420, L3890.6301, L3100.0440, L500.3400, L3890.6202 #### [facility] Laboratory [address] [place], [address] T PROT 6.7 g/dL Normal 5.9-8.4 [facility] Comment on above: Performed By: #### L 100.0100, L3400.8000, L3100.0420, L3890.6301, L3100.0440, L500.3400, L3890.6202 #### [facility] Laboratory [address] [place], [place], [address] MCV (mean corpuscular volume ) determinationOrdered By: Urbano Pavon on 03-27-2025 MCV (RBC) [Entitic vol] 93.5 fL 81-99 [facility] Mean corpuscular hemoglobin (MCH) determinationOrdered By: Urbano Pavon on 03-27-2025 MCH (RBC) [Entitic mass] 31.3 pg 27.0-32.0 [facility] Mean corpuscular hemoglobin concentration (MCHC) determinationOrdered By: Urbano Pavon on 03-27-2025 MCHC (RBC) [Mass/Vol] 33.4 g/dL 32-36 [facility] Mean platelet volume determi nationOrdered By: Urbano Pavon on 03-27-2025 Platelet mean volume (Bld) [Entitic vol] 9.9 fL 6.2-12.0 [facility] Monocyte percentageOrdered B y: Urbano Pavon on 03-27-2025 Monocytes/100 WBC (Bld) 5.9 % 0-10 [facility] Neutrophil percentageOrdered By: Urbano Pavon on 03-27-2025 Neutrophils/100 WBC (Bld) 65.8 % 47-70 [facility] Nucleated red blood cell per centageOrdered By: Urbano Pavon on 03-27-2025 Nucleated RBC/100 WBC (Bld) [Ratio] 0 % 0-5 [facility] Platelet countOrdered By: Krysta Pavon on 03-27-2025 Platelets (Bld) [#/Vol] 332 10*3/uL 150-450 [facility] Qualitative QuantiFERON-TB g old in tube testOrdered By: Urbano Pavon on 03-27-2025 M. tuberculosis tuberculin stim IFN-g Ql (Bld) 0.49 IU/mL . [facility] RBC Auto (Bld) [#/Vol]Ordere d By: Urbano Pavon on 03-27-2025 RBC (Bld) [#/Vol] 4.03 10*6/uL Low 4.2-5.4 [facility] Serum globulin measurementOr dered By: Urbano Pavon on 03-27-2025 Globulin (S) [Mass/Vol] 2.5 g/dL 2.2-4.2 [facility] Serum hepatitis B virus surf shalom antibody detectionOrdered By: Urbano Pavon on 03-27-2025 HBV surface Ab Ql (S) Non-Reactive [facility] Comment on above: <8.5 mIU/mL: Non-Hewitt ctive8.5<= x <11.5 mIU/mL: Indeterminate>=11.5 mIU/mL: Reactive Non Reactive: Inconsistent with immunity less than <10 mIU/mL Reactive: Consistent with immunity greater than or equal to 10 mIU/mL Serum or plasma alanine hoskins otransferase (ALT) measurementOrdered By: Urbano Pavon on 03-27-2025 ALT [Catalytic activity/Vol] 24 U/L <35 [facility] Serum or plasma albumin benedicto urement (mass/volume)Ordered By: Urbano Pavon on 03-27-2025 Albumin [Mass/Vol] 4.1 g/dL 3.4-4.8 [facility] Serum or plasma alkaline walter sphatase measurementOrdered By: Urbano Pavon on 03-27-2025 ALP [Catalytic activity/Vol] 79 U/L 35-104 [facility] Total proteinOrdered By: Jae Pavon on 03-27-2025 Protein [Mass/Vol] 6.7 g/dL 5.9-8.4 [facility] White blood cell (WBC) count Ordered By: Urbano Pavon on 03-27-2025 WBC (Bld) [#/Vol] 5.7 10*3/uL 4.4-11.0 [facility] Anion gap in Serum or Plasma Ordered By: Daniel Montilla on 02-22-2025 Anion gap [Moles/Vol] 10 mmol/L 5-15 [facility] BUN/creatinine ratioOrdered By: Daniel Montilla on 02-22-2025 Urea nitrogen/Creatinine [Mass ratio] 21.4 mg/mg High 10-20 [facility] Bilirubin, totalOrdered By: Daniel Montilla on 02-22-2025 Bilirubin [Mass/Vol] 0.41 mg/dL 0.00-1.30 [facility] CBC-Complete Blood Cnt No Di ffon 02-22-2025 Erythrocyte distribution width (RBC) [Ratio] 12.5 % Normal 11.6-14.6 [facility] Comment on above: Performed By: #### L 100.0100, L3400.8000, L3100.0420, L3890.6301, L3100.0440, L500.3400, L3890.6202 #### [facility] Laboratory [address] [place], [address] Hematocrit (Bld) [Volume fraction] 37.8 % Normal 37-47 [facility] Comment on above: Performed By: #### L 100.0100, L3400.8000, L3100.0420, L3890.6301, L3100.0440, L500.3400, L3890.6202 #### [facility] Laboratory [address] [place], [address] Hemoglobin (Bld) [Mass/Vol] 12.5 g/dL Normal 12.0-15.0 [facility] Comment on above: Performed By: #### L 100.0100, L3400.8000, L3100.0420, L3890.6301, L3100.0440, L500.3400, L3890.6202 #### [facility] Laboratory [address] [place], [address] MCH (RBC) [Entitic mass] 31.1 pg Normal 27.0-32.0 [facility] Comment on above: Performed By: #### L 100.0100, L3400.8000, L3100.0420, L3890.6301, L3100.0440, L500.3400, L3890.6202 #### [facility] Laboratory [address] [place], [address] MCHC (RBC) [Mass/Vol] 33.1 g/dL Normal 32-36 [facility] Comment on above: Performed By: #### L 100.0100, L3400.8000, L3100.0420, L3890.6301, L3100.0440, L500.3400, L3890.6202 #### [facility] Laboratory [address] [place], [address] MCV (RBC) [Entitic vol] 94.0 fL Normal 81-99 [facility] Comment on above: Performed By: #### L 100.0100, L3400.8000, L3100.0420, L3890.6301, L3100.0440, L500.3400, L3890.6202 #### [facility] Laboratory [address] [place], [address] Platelet mean volume (Bld) [Entitic vol] 9.4 fL Normal 6.2-12.0 [facility] Comment on above: Performed By: #### L 100.0100, L3400.8000, L3100.0420, L3890.6301, L3100.0440, L500.3400, L3890.6202 #### [facility] Laboratory [address] [place], [address] Platelets (Bld) [#/Vol] 296 10*3/uL Normal 150-450 [facility] Comment on above: Performed By: #### L 100.0100, L3400.8000, L3100.0420, L3890.6301, L3100.0440, L500.3400, L3890.6202 #### [facility] Laboratory [address] [place], [address] RBC (Bld) [#/Vol] 4.02 10*6/uL Low 4.2-5.4 [facility] Comment on above: Performed By: #### L 100.0100, L3400.8000, L3100.0420, L3890.6301, L3100.0440, L500.3400, L3890.6202 #### [facility] Laboratory [address] [place], [address] RDW SD 43.6 fl Normal 35.1-43.9 [facility] Comment on above: Performed By: #### L 100.0100, L3400.8000, L3100.0420, L3890.6301, L3100.0440, L500.3400, L3890.6202 #### [facility] Laboratory [address] [place], [address] WBC (Bld) [#/Vol] 4.5 10*3/uL Normal 4.4-11.0 [facility] Comment on above: Performed By: #### L 100.0100, L3400.8000, L3100.0420, L3890.6301, L3100.0440, L500.3400, L3890.6202 #### [facility] Laboratory [address] [place], [address] Calculated very low density lipoprotein (VLDL) cholesterol measurementOrdered By: Daniel Montilla on 02-22-2025 Calculated very low density lipoprotein (VLDL) cholesterol measurement 29 mg/dL 5-40 [facility] Carbon dioxide, total [Moles /volume] in Central venous bloodOrdered By: Daniel Montilla on 02-22-2025 CO2 [Moles/Vol] 26.6 mmol/L 21.0-32.0 [facility] Chloride assayOrdered By: Hayde Montlila on 02-22-2025 Chloride [Moles/Vol] 104 mmol/L 98-108 [facility] Comprehensive Metabolic Prof ilon 02-22-2025 Albumin [Mass/Vol] 4.0 g/dL Normal 3.4-4.8 [facility] Comment on above: Performed By: #### L 100.0100, L3400.8000, L3100.0420, L3890.6301, L3100.0440, L500.3400, L3890.6202 #### [facility] Laboratory [address] [place], [place], [address] Albumin/Globulin [Mass ratio] 1.6 {ratio} Normal 0.9-2.4 [facility] Comment on above: Performed By: #### L 100.0100, L3400.8000, L3100.0420, L3890.6301, L3100.0440, L500.3400, L3890.6202 #### [facility] Laboratory [address] [place], [place], [address] ALK PHOS 72 U/L Normal 35-104 [facility] Comment on above: Performed By: #### L 100.0100, L3400.8000, L3100.0420, L3890.6301, L3100.0440, L500.3400, L3890.6202 #### [facility] Laboratory [address] [place], [place], [id number] ALT [Catalytic activity/Vol] 33 U/L Normal <=34 [facility] Comment on above: Performed By: #### L 100.0100, L3400.8000, L3100.0420, L3890.6301, L3100.0440, L500.3400, L3890.6202 #### [facility] Laboratory [address] [place], [address] AST [Catalytic activity/Vol] 29 U/L Normal <=31 [facility] Comment on above: Performed By: #### L 100.0100, L3400.8000, L3100.0420, L3890.6301, L3100.0440, L500.3400, L3890.6202 #### [facility] Laboratory [address] [place], [address] Bilirubin [Mass/Vol] 0.41 mg/dL Normal 0.00-1.30 [facility] Comment on above: Performed By: #### L 100.0100, L3400.8000, L3100.0420, L3890.6301, L3100.0440, L500.3400, L3890.6202 #### [facility] Laboratory [address] [place], [address] BUN/CRE 21.4 RATIO High 10-20 [facility] Comment on above: Performed By: #### L 100.0100, L3400.8000, L3100.0420, L3890.6301, L3100.0440, L500.3400, L3890.6202 #### [facility] Laboratory [address] [place], [address] Calcium [Mass/Vol] 9.6 mg/dL Normal 7.6-11.0 [facility] Comment on above: Performed By: #### L 100.0100, L3400.8000, L3100.0420, L3890.6301, L3100.0440, L500.3400, L3890.6202 #### [facility] Laboratory [address] [place], [address] Chloride [Moles/Vol] 104 mmol/L Normal 98-108 [facility] Comment on above: Performed By: #### L 100.0100, L3400.8000, L3100.0420, L3890.6301, L3100.0440, L500.3400, L3890.6202 #### [facility] Laboratory [address] [place], [address] CO2 [Moles/Vol] 26.6 mmol/L Normal 21.0-32.0 [facility] Comment on above: Performed By: #### L 100.0100, L3400.8000, L3100.0420, L3890.6301, L3100.0440, L500.3400, L3890.6202 #### [facility] Laboratory [address] [place], [address] Creatinine [Mass/Vol] 0.71 mg/dL Normal 0.70-1.20 [facility] Comment on above: Performed By: #### L 100.0100, L3400.8000, L3100.0420, L3890.6301, L3100.0440, L500.3400, L3890.6202 #### [facility] Laboratory [address] [place], [address] GAP 10 Normal 5-15 [facility] Comment on above: Performed By: #### L 100.0100, L3400.8000, L3100.0420, L3890.6301, L3100.0440, L500.3400, L3890.6202 #### [facility] Laboratory [address] [place], [address] GFR/1.73 sq M.predicted among non-blacks MDRD (S/P/Bld) [Vol rate/Area] 93 mL/min/{1.73_m2} Normal >60 [facility] Comment on above: Result Comment: mL/m in/1.73m2 CKD-EPI Creatinine Equation (2020) Performed By: #### L 100.0100, L3400.8000, L3100.0420, L3890.6301, L3100.0440, L500.3400, L3890.6202 #### [facility] Laboratory [address] [place], [address] Globulin (S) [Mass/Vol] 2.6 g/dL Normal 2.2-4.2 [facility] Comment on above: Performed By: #### L 100.0100, L3400.8000, L3100.0420, L3890.6301, L3100.0440, L500.3400, L3890.6202 #### [facility] Laboratory [address] [place], [address] Glucose [Mass/Vol] 90 mg/dL Normal 70-99 [facility] Comment on above: Performed By: #### L 100.0100, L3400.8000, L3100.0420, L3890.6301, L3100.0440, L500.3400, L3890.6202 #### [facility] Laboratory [address] [place], [address] Potassium [Moles/Vol] 4.1 mmol/L Normal 3.3-5.1 [facility] Comment on above: Performed By: #### L 100.0100, L3400.8000, L3100.0420, L3890.6301, L3100.0440, L500.3400, L3890.6202 #### [facility] Laboratory [address] [place], [address] Sodium [Moles/Vol] 141 mmol/L Normal 133-145 [facility] Comment on above: Performed By: #### L 100.0100, L3400.8000, L3100.0420, L3890.6301, L3100.0440, L500.3400, L3890.6202 #### [facility] Laboratory [address] [place], [address] T PROT 6.6 g/dL Normal 5.9-8.4 [facility] Comment on above: Performed By: #### L 100.0100, L3400.8000, L3100.0420, L3890.6301, L3100.0440, L500.3400, L3890.6202 #### [facility] [address] [place], [place], [id number] Urea nitrogen [Mass/Vol] 15 mg/dL Normal 4-19 [facility] Comment on above: Performed By: #### L 100.0100, L3400.8000, L3100.0420, L3890.6301, L3100.0440, L500.3400, L3890.6202 #### [facility] Laboratory [address] [place], [place], [address] Erythrocyte distribution wid th ratioOrdered By: Daniel Montilla on 02-22-2025 Erythrocyte distribution width (RBC) [Ratio] 12.5 % 11.6-14.6 [facility] Erythrocyte distribution wid th standard deviationOrdered By: Daniel Montilla on 02-22-2025 Erythrocyte distribution width (RBC) [Ratio] 43.6 fl 35.1-43.9 [facility] Glomerular filtration rate ( GFR) estimation/1.73 sq m using serum, plasma, or whole bOrdered By: Daniel Montilla on 02-22-2025 GFR/1.73 sq M.predicted among non-blacks MDRD (S/P/Bld) [Vol rate/Area] 93 mL/min/{1.73_m2} >60 [facility] Comment on above: mL/min/1.73m2 CKD-EP I Creatinine Equation (2020) Hematocrit Auto (Bld) [Volum e fraction]Ordered By: Daniel Montilla on 02-22-2025 Hematocrit (Bld) [Volume fraction] 37.8 % 37-47 [facility] Hemoglobin measurementOrdere d By: Daniel Montilla on 02-22-2025 Hemoglobin (Bld) [Mass/Vol] 12.5 g/dL 12.0-15.0 [facility] LDL calc ser/plasOrdered By: Daniel Montilla on 02-22-2025 Cholesterol in LDL [Mass/Vol] 115 mg/dL [facility] Comment on above: Nfrrwvceyc=686-172 m g/dL & Higher Akrx=916 mg/dL or greater Laboratory - Chemistry and C hemistry - challengeOrdered By: Daniel Montilla on 02-22-2025 AST [Catalytic activity/Vol] 29 U/L <32 [facility] Lipid Profileon 02-22-2025 CHOL:HDL 4.00 Normal [facility] Comment on above: Performed By: #### L 100.0100, L3400.8000, L3100.0420, L3890.6301, L3100.0440, L500.3400, L3890.6202 #### [facility] Laboratory [address] [place] [id number] ( Cholesterol [Mass/Vol] 192 mg/dL Normal <=200 [facility] Comment on above: Result Comment: Chol esterol level, Desirable <200 mg/dL Borderline high cholesterol 200-239 mg/dL High cholesterol >=240 mg/dL Recommendations of the NCEP Adult Treatment Panel for the following risk-cutoff thresholds for the [place] population. Performed By: #### L 100.0100, L3400.8000, L3100.0420, L3890.6301, L3100.0440, L500.3400, L3890.6202 #### [facility] Laboratory [address] [facility] [address] Cholesterol in HDL [Mass/Vol] 48 mg/dL Normal [facility] Comment on above: Result Comment: [place] Cholesterol Education Program (NCEP) guidelines: <40 mg/dL: Low HDL-cholesterol (major risk factor for CHD) >= 60 mg/dL: High HDL-cholesterol (negative risk factor for CHD) HDL-cholesterol is affected by a number of factors, e.g. smoking, exercise, hormones, sex and age. Performed By: #### L 100.0100, L3400.8000, L3100.0420, L3890.6301, L3100.0440, L500.3400, L3890.6202 #### [facility] Laboratory [address] [place] [id number] Cholesterol in LDL [Mass/Vol] 115 mg/dL Normal [facility] Comment on above: Result Comment: Bord kwytmv=544-267 mg/dL Higher Blnd=249 mg/dL or greater Performed By: #### L 100.0100, L3400.8000, L3100.0420, L3890.6301, L3100.0440, L500.3400, L3890.6202 #### [facility] [address] [place], [address] Cholesterol in VLDL [Mass/Vol] 29 mg/dL Normal 5-40 [facility] Comment on above: Performed By: #### L 100.0100, L3400.8000, L3100.0420, L3890.6301, L3100.0440, L500.3400, L3890.6202 #### [facility] [address] [place], [address] Triglyceride [Mass/Vol] 145 mg/dL Normal [facility] Comment on above: Result Comment: The drugs N-Acetylcysteine and Metamizole may falsely depress this assay. Normal range: <150 mg/dL Borderline High: 150-199 mg/dL High: 200-499 mg/dL Very High: >500 mg/dL Performed By: #### L 100.0100, L3400.8000, L3100.0420, L3890.6301, L3100.0440, L500.3400, L3890.6202 #### [facility] [address] [place], [address] MCV (mean corpuscular volume ) determinationOrdered By: Daniel Montilla on 02-22-2025 MCV (RBC) [Entitic vol] 94.0 fL 81-99 [facility] Magnesiumon 02-22-2025 Magnesium [Mass/Vol] 2.0 mg/dL Normal 1.5-2.2 [facility] Comment on above: Performed By: #### L 100.0100, L3400.8000, L3100.0420, L3890.6301, L3100.0440, L500.3400, L3890.6202 #### [facility] [address] [place], [address] Magnesium measurement (mass/ volume)Ordered By: Daniel Montilla on 02-22-2025 Magnesium (Unsp spec) [Mass/Vol] 2.0 mg/dL 1.5-2.2 [facility] Mean corpuscular hemoglobin (MCH) determinationOrdered By: Daniel Montilla on 02-22-2025 MCH (RBC) [Entitic mass] 31.1 pg 27.0-32.0 [facility] Mean corpuscular hemoglobin concentration (MCHC) determinationOrdered By: Daniel Montilla on 02-22-2025 MCHC (RBC) [Mass/Vol] 33.1 g/dL 32-36 [facility] Mean platelet volume determi nationOrdered By: Daniel Montilla on 02-22-2025 Platelet mean volume (Bld) [Entitic vol] 9.4 fL 6.2-12.0 [facility] Microalb:Creat Ratio,Random URon 02-22-2025 Creatinine [Mass/Vol] 169.00 mg/dL Normal 28.00-217.00 [facility] Comment on above: Performed By: #### L 100.0100, L3400.8000, L3100.0420, L3890.6301, L3100.0440, L500.3400, L3890.6202 #### [facility] [address] [place], [place], [id number] MALB:CREAT UNABLE TO CALCULATE Normal [facility] Comment on above: Performed By: #### L 100.0100, L3400.8000, L3100.0420, L3890.6301, L3100.0440, L500.3400, L3890.6202 #### [facility] [address] [place], [address] MICROALBUMIN,UR < 12.0 Normal NO RANGE EST. [facility] Comment on above: Performed By: #### L 100.0100, L3400.8000, L3100.0420, L3890.6301, L3100.0440, L500.3400, L3890.6202 #### [facility] [address] [place], [address] Microalbumin/creat ratio urO rdered By: Daniel Montilla on 02-22-2025 Urine microalbumin/creatinine ratio measurement UNABLE TO CALCULATE mg/g CRE [facility] Platelet countOrdered By: Hayde Montilla on 02-22-2025 Platelets (Bld) [#/Vol] 296 10*3/uL 150-450 [facility] Potassium measurement (mass/ volume)Ordered By: Daniel Montilla on 02-22-2025 Potassium (Unsp spec) [Mass/Vol] 4.1 mmol/L 3.3-5.1 [facility] RBC Auto (Bld) [#/Vol]Ordere d By: Daniel Montilla on 02-22-2025 RBC (Bld) [#/Vol] 4.02 10*6/uL Low 4.2-5.4 [facility] Random urine creatinine benedicto urement (mass/volume)Ordered By: Daniel Montilla on 02-22-2025 Creatinine Unsp time (U) [Mass/Vol] 169.00 mg/dL 28.00-217.00 [facility] Screening total cholesterol/ high density lipoprotein (HDL) cholesterol ratioOrdered By: Daniel Montilla on 02-22-2025 Cholesterol.total/Jacquelyn sterol in HDL [Mass ratio] 4.00 {ratio} [facility] Serum creatinine measurement (mass/volume)Ordered By: Daniel Montilla on 02-22-2025 Creatinine [Mass/Vol] 0.71 mg/dL 0.70-1.20 [facility] Serum globulin measurementOr dered By: Daniel Montilla on 02-22-2025 Globulin (S) [Mass/Vol] 2.6 g/dL 2.2-4.2 [facility] Serum glucose measurement (m ass/volume)Ordered By: Daniel Montilla on 02-22-2025 Glucose [Mass/Vol] 90 mg/dL 70-99 [facility] Serum or plasma alanine hoskins otransferase (ALT) measurementOrdered By: Daniel Montilla on 02-22-2025 ALT [Catalytic activity/Vol] 33 U/L <35 [facility] Serum or plasma albumin benedicto urement (mass/volume)Ordered By: Daniel Montilla on 02-22-2025 Albumin [Mass/Vol] 4.0 g/dL 3.4-4.8 [facility] Serum or plasma albumin/glob ulin mass ratioOrdered By: Daniel Montilla on 02-22-2025 Albumin/Globulin [Mass ratio] 1.6 {ratio} 0.9-2.4 [facility] Serum or plasma alkaline walter sphatase measurementOrdered By: Daniel Montilla on 02-22-2025 ALP [Catalytic activity/Vol] 72 U/L 35-104 [facility] Serum or plasma calcium benedicto urement (mass/volume)Ordered By: Daniel Montilla on 02-22-2025 Calcium [Mass/Vol] 9.6 mg/dL 7.6-11.0 [facility] Serum or plasma cholesterol in HDL measurement (mass/volume)Ordered By: Daniel Montilla on 02-22-2025 Cholesterol in HDL [Mass/Vol] 48 mg/dL >40 [facility] Comment on above: National Cholesterol Education Program (NCEP) guidelines:<40 mg/dL: Low HDL-cholesterol (major risk factor for CHD)>= 60 mg/dL: High HDL-cholesterol (negative risk factor for CHD)HDL-cholesterol is affected by a number of factors, e.g. smoking, exercise, hormones, sex and age. Serum or plasma cholesterol measurement (mass/volume)Ordered By: Daniel Montilla on 02-22-2025 Cholesterol [Mass/Vol] 192 mg/dL <201 [facility] Comment on above: Cholesterol level, D esirable <200 mg/dLBorderline high cholesterol 200-239 mg/dLHigh cholesterol >=240 mg/dLRecommendations of the NCEP Adult Treatment Panel for the following risk-cutoff thresholds for the [place] population. Serum or plasma urea nitroge n measurement (mass/volume)Ordered By: Daniel Montilla on 02-22-2025 Urea nitrogen [Mass/Vol] 15 mg/dL 4-19 [facility] Sodium levelOrdered By: Praful Montilla on 02-22-2025 Sodium [Moles/Vol] 141 mmol/L 133-145 [facility] Total proteinOrdered By: Pasquale Montilla on 02-22-2025 Protein [Mass/Vol] 6.6 g/dL 5.9-8.4 [facility] Triglycerides measurementOrd ered By: Daniel Montilla on 02-22-2025 Triglyceride [Mass/Vol] 145 mg/dL <199 [facility] Comment on above: The drugs N-Acetylcy steine and Metamizole may falsely depress this assay. Normal range: <150 mg/dLBorderline High: 150-199 mg/dLHigh: 200-499 mg/dLVery High: >500 mg/dL Urine albumin measurement wi th detection limit of 20 mg/L or less (mass/volume)Ordered By: Daniel Montilla on 02-22-2025 Albumin DL <= 20 mg/L (U) [Mass/Vol] < 12.0 mg/L NO RANGE EST. [facility] Vitamin D,25 Hydroxyon 02-22 Vitamin D 25-OH 46.6 ng/mL Normal 30-100 [facility] Comment on above: Result Comment: Randi min D Status Deficiency: <20 ng/mL (50nmol/L) Insufficiency: 20-30 ng/mL (50-75 nmol/L) Sufficiency: 30-100 ng/mL (75-250 nmol/L) Toxicity: >100 ng/mL (>250 nmol/L) Performed By: #### L 100.0100, L3400.8000, L3100.0420, L3890.6301, L3100.0440, L500.3400, L3890.6202 #### [facility] [address] [place], [address] White blood cell (WBC) count Ordered By: Daniel Montilla on 02-22-2025 WBC (Bld) [#/Vol] 4.5 10*3/uL 4.4-11.0 [facility] Breast imaging reportOrdered By: Fredy Knox on 12-20-2024 Study report [facility] Imaging Services [address] [place] [address] SCRN MAMM (CAD)W/OLLIE BILAT MR#: [id number] Acct: [id number] Name: SAV ROJAS Rep #: [id number] : 1955 F 69 From: Erik Knox MD PCP: MIC Guzman Status: REG CLI Study:SCRN MAMM (CAD)W/OLLIE BILAT Date of Exa m: 12/20/24 Exam# [id number] Ordering Dr: Sylvester Adam MD PROCEDURE: SCRN [...] of the results by letter. Reading Location: YUAN CC: PRIVATE DUTY NURSE-C Daniel Montilla; Dr. Elza Adam MD ~ Canal Tender: Signed [facility] SCRN MAMM (CAD)W/OLLIE BILATo n 12-20-2024 SCRN MAMM (CAD)W/OLLIE BILAT [facility] Imaging Services [address] [place] [address] SCRN MAMM (CAD)W/OLLIE BILAT MR#: [id number] Acct: [id number] Name: SAV ROJAS Rep #: [id number] : 1955 F 69 From: Fredy lora MD PCP: Daniel Montilla, CHASE-C Status: REG CLI Study: SCRN MAMM (CAD)W/OLLIE BILAT Date of Exam: 04/10 Exam# [id number] Ordering Dr: Elza Adam MD PROCEDURE: SCRN [...] of the results by letter. Reading Location: [id number] CC: PRIVATE DUTY NURSE-C Daniel Montilla; Dr. Elza Adam MD Canal Tender: Signed Normal [facility] CBC-Complete Blood Cnt No Di ffon 2024 Erythrocyte distribution width (RBC) [Ratio] 12.5 % Normal 11.6-14.6 [facility] Comment on above: Performed By: #### L 500.4050, L506.1000, L500.4100, L502.0250, L100.0500 #### [facility] [address] [place], [place], [id number] Hematocrit (Bld) [Volume fraction] 37.3 % Normal 37-47 [facility] Comment on above: Performed By: #### L 500.4050, L506.1000, L500.4100, L502.0250, L100.0500 #### [facility] [address] [place], [address] Hemoglobin (Bld) [Mass/Vol] 12.2 g/dL Normal 12.0-15.0 [facility] Comment on above: Performed By: #### L 500.4050, L506.1000, L500.4100, L502.0250, L100.0500 #### [facility] [address] [place], [address] MCH (RBC) [Entitic mass] 30.1 pg Normal 27.0-32.0 [facility] Comment on above: Performed By: #### L 500.4050, L506.1000, L500.4100, L502.0250, L100.0500 #### [facility] [address] [place], [address] MCHC (RBC) [Mass/Vol] 32.7 g/dL Normal 32-36 [facility] Comment on above: Performed By: #### L 500.4050, L506.1000, L500.4100, L502.0250, L100.0500 #### [facility] [address] [place], [address] MCV (RBC) [Entitic vol] 92.1 fL Normal 81-99 [facility] Comment on above: Performed By: #### L 500.4050, L506.1000, L500.4100, L502.0250, L100.0500 #### [facility] [address] [place], [address] Platelet mean volume (Bld) [Entitic vol] 9.2 fL Normal 6.2-12.0 [facility] Comment on above: Performed By: #### L 500.4050, L506.1000, L500.4100, L502.0250, L100.0500 #### [facility] [address] [place], [address] Platelets (Bld) [#/Vol] 362 10*3/uL Normal 150-450 [facility] Comment on above: Performed By: #### L 500.4050, L506.1000, L500.4100, L502.0250, L100.0500 #### [facility] [address] [place], [address] RBC (Bld) [#/Vol] 4.05 10*6/uL Low 4.2-5.4 [facility] Comment on above: Performed By: #### L 500.4050, L506.1000, L500.4100, L502.0250, L100.0500 #### [facility] [address] [place], [address] RDW SD 42.6 fl Normal 35.1-43.9 [facility] Comment on above: Performed By: #### L 500.4050, L506.1000, L500.4100, L502.0250, L100.0500 #### [facility] [address] [place], [address] WBC (Bld) [#/Vol] 5.3 10*3/uL Normal 4.4-11.0 [facility] Comment on above: Performed By: #### L 500.4050, L506.1000, L500.4100, L502.0250, L100.0500 #### [facility] [address] [place], [address] Comprehensive Metabolic Prof [facility] 2024 Albumin [Mass/Vol] 3.4 g/dL Normal 3.2-5.0 [facility] Comment on above: Performed By: #### L 100.0100, L3400.8000, L3100.0420, L3890.6301, L3100.0440, L500.3400, L3890.6202 #### [facility] [address] [place], [address] Albumin/Globulin [Mass ratio] 1.0 {ratio} Normal 0.9-2.4 [facility] Comment on above: Performed By: #### L 100.0100, L3400.8000, L3100.0420, L3890.6301, L3100.0440, L500.3400, L3890.6202 #### [facility] [address] [place], [address] ALK P 84 U/L Normal 45-117 [facility] Comment on above: Performed By: #### L 100.0100, L3400.8000, L3100.0420, L3890.6301, L3100.0440, L500.3400, L3890.6202 #### [facility] [address] [place], [address] ALT [Catalytic activity/Vol] 23 U/L Normal 13-56 [facility] Comment on above: Performed By: #### L 100.0100, L3400.8000, L3100.0420, L3890.6301, L3100.0440, L500.3400, L3890.6202 #### [facility] [address] [place], [address] AST [Catalytic activity/Vol] 14 U/L Low 15-37 [facility] Comment on above: Performed By: #### L 100.0100, L3400.8000, L3100.0420, L3890.6301, L3100.0440, L500.3400, L3890.6202 #### [facility] [address] [place], [address] Bilirubin [Mass/Vol] 0.40 mg/dL Normal 0.20-1.00 [facility] Comment on above: Result Comment: For patients on eltrombopag therapy, use of Dimension [place]ershaw TBIL is not recommended. Performed By: #### L 100.0100, L3400.8000, L3100.0420, L3890.6301, L3100.0440, L500.3400, L3890.6202 #### [facility] [address] [place], [address] BUN/CRE 15.6 RATIO Normal 10-20 [facility] Comment on above: Performed By: #### L 100.0100, L3400.8000, L3100.0420, L3890.6301, L3100.0440, L500.3400, L3890.6202 #### [facility] [address] [place], [address] CA,Total 9.7 mg/dL Normal 8.5-10.1 [facility] Comment on above: Performed By: #### L 100.0100, L3400.8000, L3100.0420, L3890.6301, L3100.0440, L500.3400, L3890.6202 #### [facility] [address] [place], [address] Chloride [Moles/Vol] 101 mmol/L Normal 98-107 [facility] Comment on above: Performed By: #### L 100.0100, L3400.8000, L3100.0420, L3890.6301, L3100.0440, L500.3400, L3890.6202 #### [facility] [address] [place], [address] CO2 [Moles/Vol] 27.0 mmol/L Normal 21.0-32.0 [facility] Comment on above: Performed By: #### L 100.0100, L3400.8000, L3100.0420, L3890.6301, L3100.0440, L500.3400, L3890.6202 #### [facility] [address] [place], [address] Creatinine [Mass/Vol] 0.70 mg/dL Normal 0.55-1.02 [facility] Comment on above: Result Comment: The validity of the calculated GFR GFRAA in patients over 70 years has not been determined. Clinical correlation is essential. Performed By: #### L 100.0100, L3400.8000, L3100.0420, L3890.6301, L3100.0440, L500.3400, L3890.6202 #### [facility] [address] [place], [address] EST GFR - AA 107 mL/min Normal >60 [facility] Comment on above: Result Comment: Afri can [place]ian GFR Calc Performed By: #### L 100.0100, L3400.8000, L3100.0420, L3890.6301, L3100.0440, L500.3400, L3890.6202 #### [facility] [address] [place], [address] GAP 8 Normal 5-15 [facility] Comment on above: Performed By: #### L 100.0100, L3400.8000, L3100.0420, L3890.6301, L3100.0440, L500.3400, L3890.6202 #### [facility] [address] [place], [place], [id number] (400) GFR/1.73 sq M.predicted among non-blacks MDRD (S/P/Bld) [Vol rate/Area] 88 mL/min/{1.73_m2} Normal >60 [facility] Comment on above: Result Comment: Non- GFR Calc Performed By: #### L 100.0100, L3400.8000, L3100.0420, L3890.6301, L3100.0440, L500.3400, L3890.6202 #### [facility] [address] [place], [place], [id number] (259) Globulin (S) [Mass/Vol] 3.5 g/dL Normal 2.2-4.2 [facility] Comment on above: Performed By: #### L 100.0100, L3400.8000, L3100.0420, L3890.6301, L3100.0440, L500.3400, L3890.6202 #### [facility] [address] [place], [address] Glucose [Mass/Vol] 101 mg/dL Normal 74-106 [facility] Comment on above: Result Comment: Fast ing Glucose result from 100 to 125 mg/dL suggests IMPAIRED HOMEOSTASIS per A.D.A. criteria. Performed By: #### L 100.0100, L3400.8000, L3100.0420, L3890.6301, L3100.0440, L500.3400, L3890.6202 #### [facility] [address] [place], [address] Potassium [Moles/Vol] 4.0 mmol/L Normal 3.5-5.1 [facility] Comment on above: Performed By: #### L 100.0100, L3400.8000, L3100.0420, L3890.6301, L3100.0440, L500.3400, L3890.6202 #### [facility] [address] [place], [address] Sodium [Moles/Vol] 136 mmol/L Normal 136-145 [facility] Comment on above: Performed By: #### L 100.0100, L3400.8000, L3100.0420, L3890.6301, L3100.0440, L500.3400, L3890.6202 #### [facility] [address] [place], [address] T PROT 6.9 g/dL Normal 6.4-8.2 [facility] Comment on above: Performed By: #### L 100.0100, L3400.8000, L3100.0420, L3890.6301, L3100.0440, L500.3400, L3890.6202 #### [facility] [address] [place], [address] Urea nitrogen [Mass/Vol] 11 mg/dL Normal 7-18 [facility] Comment on above: Performed By: #### L 100.0100, L3400.8000, L3100.0420, L3890.6301, L3100.0440, L500.3400, L3890.6202 #### [facility] [address] [place], [address] Lipid Profileon 2024 Cholesterol [Mass/Vol] 184 mg/dL Normal 200 [facility] Comment on above: Result Comment: <200 mg/dL Desirable 200-240 mg/dL Borderline >240 mg/dL High Risk Performed By: #### L 100.0100, L3400.8000, L3100.0420, L3890.6301, L3100.0440, L500.3400, L3890.6202 #### [facility] [address] [place], [address] Cholesterol in HDL [Mass/Vol] 54 mg/dL Normal [facility] Comment on above: Result Comment: The drugs N-Acetylcysteine and Metamizole may falsely depress this assay. Reference Range HDL <40 mg/dL Low HDL Cholesterol HDL >or= 60 mg/dL High HDL Cholesterol Performed By: #### L 100.0100, L3400.8000, L3100.0420, L3890.6301, L3100.0440, L500.3400, L3890.6202 #### [facility] [address] [place], [address] Cholesterol in LDL [Mass/Vol] 106 mg/dL Normal 0-130 [facility] Comment on above: Performed By: #### L 100.0100, L3400.8000, L3100.0420, L3890.6301, L3100.0440, L500.3400, L3890.6202 #### [facility] [address] [place], [address] Cholesterol in VLDL [Mass/Vol] 24 mg/dL Normal 5-40 [facility] Comment on above: Performed By: #### L 100.0100, L3400.8000, L3100.0420, L3890.6301, L3100.0440, L500.3400, L3890.6202 #### [facility] [address] [place], [place], [address] Triglyceride [Mass/Vol] 122 mg/dL Normal [facility] Comment on above: Result Comment: The drugs N-Acetylcysteine and Metamizole may falsely depress this assay. Serum Triglycerides Reference Interval Normal <150 mg/dL Borderline high 150 - 199 mg/dL High 200 - 499 mg/dL Very High > or = 500 mg/dL Performed By: #### L 100.0100, L3400.8000, L3100.0420, L3890.6301, L3100.0440, L500.3400, L3890.6202 #### [facility] [address] [place], [address] Microalb:Creat Ratio,Random URon 2024 Creatinine [Mass/Vol] 44.40 mg/dL Normal NO RANGE EST. [facility] Comment on above: Performed By: #### L 100.0100, L3400.8000, L3100.0420, L3890.6301, L3100.0440, L500.3400, L3890.6202 #### [facility] [address] [place], [address] MALB:CRE TNP Normal <30 mg/g CRE [facility] Comment on above: Performed By: #### L 100.0100, L3400.8000, L3100.0420, L3890.6301, L3100.0440, L500.3400, L3890.6202 #### [facility] [address] [place], [place], [id number] MICROALBUMIN,UR < 5.0 Normal NO RANGE EST. [facility] Comment on above: Performed By: #### L 100.0100, L3400.8000, L3100.0420, L3890.6301, L3100.0440, L500.3400, L3890.6202 #### [facility] [address] [place], [place], [address] Vitamin D,25 Hydroxyon 08-27 Vitamin D 25-OH 70.2 ng/mL Normal [facility] Comment on above: Result Comment: Randi min D 25(OH) Status Range Deficiency <20 ng/mL (50nmol/L) Insufficiency 20 - 30 ng/mL (50 - 75 nmol/L) Sufficiency 30 - 100 ng/mL (75 - 250 nmol/L) Toxicity >100 ng/mL (>250 nmol/L) Performed By: #### L 500.4050, L506.1000, L500.4100, L502.0250, L100.0500 #### [facility] [address] [place], [place], [id number] .Auto Diffon 09-14-2023 Basophil, Absolute 0.0 10 3/mcL Normal 0.0-0.2 [facility] ([place]) Comment on above: Performed By: #### B MP, ANEU, GFR, ADIFF, CBC #### [place] [address] [address] Basophils/100 WBC (Bld) 0.5 % Normal 0.0-2.5 A [facility] ([place]) Comment on above: Performed By: #### B MP, ANEU, GFR, ADIFF, CBC #### [place] [address] [address] Eosinophil, Absolute 0.1 10 3/mcL Normal 0.0-0.4 [facility] ([place]) Comment on above: Performed By: #### B MP, ANEU, GFR, ADIFF, CBC #### [place] [address] [address] Eosinophils/100 WBC (Bld) 1.6 % Normal 0.0-7.0 [facility] ([place]) Comment on above: Performed By: #### B MP, ANEU, GFR, ADIFF, CBC #### [address] [address] Lymphocyte, Absolute 1.6 10 3/mcL Normal 0.8-3.9 [facility] ([place]) Comment on above: Performed By: #### B MP, ANEU, GFR, ADIFF, CBC #### [address] [address] Lymphocytes/100 WBC (Bld) 27.5 % Normal 10.0-50.0 [facility] ([place]) Comment on above: Performed By: #### B MP, ANEU, GFR, ADIFF, CBC #### [address] [address] Monocyte, Absolute 0.5 10 3/mcL Normal 0.2-1.0 [facility] ([place]) Comment on above: Performed By: #### B MP, ANEU, GFR, ADIFF, CBC #### [address] [address] Monocytes/100 WBC (Bld) 7.9 % Normal 1.7-13.0 [facility] ([place]) Comment on above: Performed By: #### B MP, ANEU, GFR, ADIFF, CBC #### [address] [address] Neutrophils/100 WBC (Bld) 62.5 % Normal 37.0-80.0 [facility] ([place]) Comment on above: Performed By: #### B MP, ANEU, GFR, ADIFF, CBC #### [address] [address] .GFRon 09-14-2023 GFR Non- 77 ml/min/1.73sqm Normal [facility] ([place]) Comment on above: Result Comment: GFR Population [...] B MP, ANEU, GFR, ADIFF, CBC #### [address] [address] GFR 94 ml/min/1.73sqm Normal [facility] ([place]) Comment on above: Result Comment: GFR Population [...] B MP, ANEU, GFR, ADIFF, CBC #### [address] [address] .NEUABSon 09-14-2023 Neutrophil, Absolute 3.6 10 3/mcL Normal 2.9-6.2 [facility] ([place]) Comment on above: Performed By: #### B MP, ANEU, GFR, ADIFF, CBC #### [address] [address] BMPon 09-14-2023 BUN/Creatinine Ratio 15 ratio Normal 7-27 [facility] ([place]) Comment on above: Performed By: #### B MP, ANEU, GFR, ADIFF, CBC #### [address] [address] Calcium [Mass/Vol] 9.7 mg/dL Normal 8.4-10.2 [facility] ([place]) Comment on above: Performed By: #### B MP, ANEU, GFR, ADIFF, CBC #### [address] [address] Chloride [Moles/Vol] 99 mmol/L Normal 98-107 [facility] ([place]) Comment on above: Performed By: #### B MP, ANEU, GFR, ADIFF, CBC #### [address] [address] CO2 [Moles/Vol] 28 mmol/L Normal 23-31 [facility] ([place]) Comment on above: Performed By: #### B MP, ANEU, GFR, ADIFF, CBC #### [address] [address] Creatinine [Mass/Vol] 0.75 mg/dL Normal 0.55-1.02 [facility] ([place]) Comment on above: Performed By: #### B MP, ANEU, GFR, ADIFF, CBC #### [place] [id number] Electrolyte Balance 9.0 mEq/L Normal 4.0-15.0 [facility] ([place]) Comment on above: Performed By: #### B MP, ANEU, GFR, ADIFF, CBC #### [place] [id number] Glucose [Mass/Vol] 101 mg/dL Normal 80-115 [facility] ([place]) Comment on above: Performed By: #### B MP, ANEU, GFR, ADIFF, CBC #### [address] [address] Potassium [Moles/Vol] 4.0 mmol/L Normal 3.5-5.1 [facility] ([place]) Comment on above: Performed By: #### B MP, ANEU, GFR, ADIFF, CBC #### [place] [address] Sodium [Moles/Vol] 136 mmol/L Normal 136-145 [facility] ([place]) Comment on above: Performed By: #### B MP, ANEU, GFR, ADIFF, CBC #### [address] [address] Urea nitrogen [Mass/Vol] 11 mg/dL Normal 7-18 [facility] ([place]) Comment on above: Performed By: #### B MP, ANEU, GFR, ADIFF, CBC #### [address] [address] CBCon 09-14-2023 Erythrocyte distribution width (RBC) [Ratio] 13.4 % Normal 11.5-14.5 [facility] ([place]) Comment on above: Order Comment: Pre-A dmission Testing Performed By: #### B MP, ANEU, GFR, ADIFF, CBC #### [place] [address] Hematocrit (Bld) [Volume fraction] 37.2 % Normal 37.0-47.0 [facility] ([place]) Comment on above: Order Comment: Pre-A dmission Testing Performed By: #### B MP, ANEU, GFR, ADIFF, CBC #### [place] [address] Hgb 12.7 G/dL Normal 12.0-16.0 [facility] ([place]) Comment on above: Order Comment: Pre-A dmission Testing Performed By: #### B MP, ANEU, GFR, ADIFF, CBC #### [address] [address] MCH (RBC) [Entitic mass] 30.8 pg Normal 27.0-31.2 [facility] ([place]) Comment on above: Order Comment: Pre-A dmission Testing Performed By: #### B MP, ANEU, GFR, ADIFF, CBC #### [place] [address] MCHC 34.1 G/dL Normal 33.0-37.0 [facility] ([place]) Comment on above: Order Comment: Pre-A dmission Testing Performed By: #### B MP, ANEU, GFR, ADIFF, CBC #### [address] [address] MCV (RBC) [Entitic vol] 90.2 fL Normal 80.0-94.0 A [facility] ([place]) Comment on above: Order Comment: Pre-A dmission Testing Performed By: #### B MP, ANEU, GFR, ADIFF, CBC #### [address] [address] Platelet 312 10 3/mcL Normal 130-400 [facility] ([place]) Comment on above: Order Comment: Pre-A dmission Testing Performed By: #### B MP, ANEU, GFR, ADIFF, CBC #### [address] [address] Platelet mean volume (Bld) [Entitic vol] 7.5 fL Normal 7.4-10.4 [facility] ([place]) Comment on above: Order Comment: Pre-A dmission Testing Performed By: #### B MP, ANEU, GFR, ADIFF, CBC #### [address] [address] RBC 4.12 10 6/mcL Low 4.20-5.40 [facility] ([place]) Comment on above: Order Comment: Pre-A dmission Testing Performed By: #### B MP, ANEU, GFR, ADIFF, CBC #### [address] [address] WBC 5.8 10 3/mcL Normal 4.6-10.8 [facility] ([place]) Comment on above: Order Comment: Pre-A dmission Testing Performed By: #### B MP, ANEU, GFR, ADIFF, CBC #### [address] [address] US SOFT TISSUE Sade 2022 US SOFT TISSUE MASS ORIGINAL EXAMINATION: SOFT TISSUE [id number]/3/2023 11:44 am COMPARISON: None HISTORY: ORDERING SYSTEM [...] 08/23/2023 7:07:26 PM Ordering Provider: MANJIT Castro [facility] ([place]) Basophil percentageOrdered B y: Daniel Montilla on 08-19-2023 Bilirubin [Mass/Vol] 0.60 mg/dL 0.20-1.00 [facility] Comment on above: For patients on eltr ombopag therapy, use of Dimension [place] TBIL is not recommended. Chloride [Moles/Vol] 102 mmol/L 98-107 [facility] Cholesterol [Mass/Vol] 206 mg/dL <200 [facility] Comment on above: <200 mg/dL Desirable 200-240 mg/dL Borderline >240 mg/dL High Risk Glucose [Mass/Vol] 96 mg/dL 74-106 [facility] Potassium [Moles/Vol] 3.8 mmol/L 3.5-5.1 [facility] Protein [Mass/Vol] 7.3 g/dL 6.4-8.2 [facility] Sodium [Moles/Vol] 138 mmol/L 136-145 [facility] Triglyceride [Mass/Vol] 126 mg/dL <199 [facility] Comment on above: The drugs N-Acetylcy steine and Metamizole may falsely depress this assay.Serum Triglycerides Reference Interval Normal <150 mg/dL Borderline high 150 - 199 mg/dL High 200 - 499 mg/dL Very High > or = 500 mg/dL WBC (Bld) [#/Vol] 5.8 10*3/uL 4.4-11.0 [facility] Blood erythrocytes count (nu mber/volume)Ordered By: Daniel Montilla on 08-19-2023 RBC (Bld) [#/Vol] 4.45 10*6/uL 4.2-5.4 [facility] Blood hemoglobin measurement (mass/volume)Ordered By: Daniel Montilla on 08-19-2023 Hemoglobin (Bld) [Mass/Vol] 13.6 g/dL 12.0-15.0 [facility] Blood platelet mean volumeOr dered By: Daniel Montilla on 08-19-2023 Platelet mean volume (Bld) [Entitic vol] 9.8 fL 6.2-12.0 [facility] Determination of erythrocyte mean corpuscular volume (MCV)Ordered By: Daniel Montilla on 08-19-2023 MCV (RBC) [Entitic vol] 94.8 fL 81-99 [facility] Hematocrit Auto (Bld) [Volum e fraction]Ordered By: Daniel Montilla on 08-19-2023 Hematocrit (Bld) [Volume fraction] 42.2 % 37-47 [facility] Laboratory - Chemistry and C hemistry - challengeOrdered By: Daniel Montilla on 08-19-2023 ALP [Catalytic activity/Vol] 76 U/L 45-117 [facility] ALT [Catalytic activity/Vol] 42 U/L 13-56 [facility] CO2 [Moles/Vol] 31.0 mmol/L 21.0-32.0 [facility] Globulin (S) [Mass/Vol] 3.5 g/dL 2.2-4.2 [facility] Urea nitrogen/Creatinine [Mass ratio] 15.3 mg/mg 10-20 [facility] Laboratory - Hematology and Cell countsOrdered By: Daniel Montilla on 08-19-2023 Erythrocyte distribution width (RBC) [Entitic vol] 43.8 fL 35.1-43.9 [facility] Erythrocyte distribution width (RBC) [Ratio] 12.7 % 11.6-14.6 [facility] MCH (RBC) [Entitic mass] 30.6 pg 27.0-32.0 [facility] MCHC Auto (RBC) [Mass/Vol]Or dered By: Daniel Montilla on 08-19-2023 MCHC (RBC) [Mass/Vol] 32.2 g/dL 32-36 [facility] No Panel InformationOrdered By: Daniel Montilla on 08-19-2023 Estimated GFR (MDRD) Amer 95 mL/min >60 [facility] Comment on above: GFR Calc Estimated GFR (MDRD) Non-Af Amer 78 mL/min >60 [facility] Comment on above: Non- GFR Calc Urine Microalbumin/Creatinine Ratio 11.9 mg/g CRE <30 [facility] Vitamin D 25-Hydroxy 86.6 ng/mL [facility] Comment on above: Vitamin D 25(OH) Sta tus Range Deficiency <20 ng/mL (50nmol/L) Insufficiency 20 - 30 ng/mL (50 - 75 nmol/L) Sufficiency 30 - 100 ng/mL (75 - 250 nmol/L) Toxicity >100 ng/mL (>250 nmol/L) Platelets bldOrdered By: Pasquale Montilla on 08-19-2023 Platelets (Bld) [#/Vol] 360 10*3/uL 150-450 [facility] Serum or plasma albumin benedicto urement (mass/volume)Ordered By: Daniel Montilla on 08-19-2023 Albumin [Mass/Vol] 3.8 g/dL 3.2-5.0 [facility] Serum or plasma albumin/glob ulin mass ratioOrdered By: Daniel Montilla on 08-19-2023 Albumin/Globulin [Mass ratio] 1.1 {ratio} 0.9-2.4 [facility] Serum or plasma calcium benedicto urement (mass/volume)Ordered By: Daniel Montilla on 08-19-2023 Calcium [Mass/Vol] 9.6 mg/dL 8.5-10.1 [facility] Serum or plasma cholesterol in HDL measurement (mass/volume)Ordered By: Daniel Montilla on 08-19-2023 Cholesterol in HDL [Mass/Vol] 55 mg/dL >40 [facility] Comment on above: The drugs N-Acetylcy steine and Metamizole may falsely depress this assay. Reference Range HDL <40 mg/dL Low HDL Cholesterol HDL >or= 60 mg/dL High HDL Cholesterol Serum or plasma cholesterol in VLDL measurement (mass/volume)Ordered By: Daniel Montilla on 08-19-2023 Cholesterol in VLDL [Mass/Vol] 25 mg/dL 5-40 [facility] Serum or plasma creatinine m easurement (mass/volume)Ordered By: Daniel Montilla on 08-19-2023 Creatinine [Mass/Vol] 0.78 mg/dL 0.55-1.02 [facility] Comment on above: The validity of the calculated GFR & GFRAA in patients over 70 years has not been determined. Clinical correlation is essential. Serum or plasma low density lipoprotein (LDL) cholesterol measurement (mass/volume)Ordered By: Daniel Montilla on 08-19-2023 Cholesterol in LDL [Mass/Vol] 126 mg/dL 0-130 [facility] Serum or plasma urea nitroge n measurement (mass/volume)Ordered By: Daniel Montilla on 08-19-2023 Urea nitrogen [Mass/Vol] 12 mg/dL 7-18 [facility] Thin prep Papanicolaou smear with manual screeningOrdered By: Daniel Montilla on 08-19-2023 Thin prep Papanicolaou smear with manual screening 22 U/L 15-37 [facility] Thin prep Papanicolaou smear with manual screening 5 5-15 [facility] Thin prep Papanicolaou smear with manual screening 10.9 mg/L NO RANGE EST. [facility] Urine creatinine measurement (mass/volume)Ordered By: Daniel Montilla on 08-19-2023 Creatinine (U) [Mass/Vol] 91.50 mg/dL NO RANGE EST. [facility] MALBRon 03-04-2023 U Creatinine 22.4 mg/dL Low 28.0-117.0 [facility] ([place]) Comment on above: Performed By: #### M ALBR #### [address] [address] U Microalb <130 Normal [facility] ([place]) Comment on above: Performed By: #### M ALBR #### [id number] [place], [place] [address] U Ratio Alb/Cre Unable to Calculate Normal 0-30 [facility] ([place]) Comment on above: Result Comment: Unab le to calculate this test result accurately. Results used to calculate this test are outside the reportable range. Performed By: #### M ALBR #### [id number] [place], [place] [address] Basophil percentageOrdered B y: Daniel Montilla on 02-24-2023 Bilirubin [Mass/Vol] 0.40 mg/dL 0.20-1.00 [facility] Comment on above: For patients on eltr ombopag therapy, use of Dimension [place] TBIL is not recommended. Chloride [Moles/Vol] 105 mmol/L 98-107 [facility] Cholesterol [Mass/Vol] 182 mg/dL <200 [facility] Comment on above: <200 mg/dL Desirable 200-240 mg/dL Borderline >240 mg/dL High Risk Glucose [Mass/Vol] 92 mg/dL 74-106 [facility] Potassium [Moles/Vol] 4.3 mmol/L 3.5-5.1 [facility] Protein [Mass/Vol] 7.1 g/dL 6.4-8.2 [facility] Sodium [Moles/Vol] 140 mmol/L 136-145 [facility] Triglyceride [Mass/Vol] 127 mg/dL <199 [facility] Comment on above: The drugs N-Acetylcy steine and Metamizole may falsely depress this assay.Serum Triglycerides Reference Interval Normal <150 mg/dL Borderline high 150 - 199 mg/dL High 200 - 499 mg/dL Very High > or = 500 mg/dL WBC (Bld) [#/Vol] 4.7 10*3/uL 4.4-11.0 [facility] Blood erythrocytes count (nu mber/volume)Ordered By: Daniel Montilla on 02-24-2023 RBC (Bld) [#/Vol] 4.13 10*6/uL 4.2-5.4 [facility] Blood hemoglobin measurement (mass/volume)Ordered By: Daniel Montilla on 02-24-2023 Hemoglobin (Bld) [Mass/Vol] 12.3 g/dL 12.0-15.0 [facility] Blood platelet mean volumeOr dered By: Daniel Montilla on 02-24-2023 Platelet mean volume (Bld) [Entitic vol] 9.6 fL 6.2-12.0 [facility] Determination of erythrocyte mean corpuscular volume (MCV)Ordered By: Daniel Montilla on 02-24-2023 MCV (RBC) [Entitic vol] 94.4 fL 81-99 [facility] Hematocrit Auto (Bld) [Volum e fraction]Ordered By: Daniel Montilla on 02-24-2023 Hematocrit (Bld) [Volume fraction] 39.0 % 37-47 [facility] Laboratory - Chemistry and C hemistry - challengeOrdered By: Daniel Montilla on 02-24-2023 ALP [Catalytic activity/Vol] 60 U/L 45-117 [facility] ALT [Catalytic activity/Vol] 30 U/L 13-56 [facility] CO2 [Moles/Vol] 30.0 mmol/L 21.0-32.0 [facility] Globulin (S) [Mass/Vol] 3.4 g/dL 2.2-4.2 [facility] Urea nitrogen/Creatinine [Mass ratio] 16.2 mg/mg 10-20 [facility] Laboratory - Hematology and Cell countsOrdered By: Daniel Montilla on 02-24-2023 Erythrocyte distribution width (RBC) [Entitic vol] 44.2 fL 35.1-43.9 [facility] Erythrocyte distribution width (RBC) [Ratio] 12.8 % 11.6-14.6 [facility] MCH (RBC) [Entitic mass] 29.8 pg 27.0-32.0 [facility] MCHC Auto (RBC) [Mass/Vol]Or dered By: Daniel Montilla on 02-24-2023 MCHC (RBC) [Mass/Vol] 31.5 g/dL 32-36 [facility] No Panel InformationOrdered By: Daniel Montilla on 02-24-2023 Estimated GFR (MDRD) Amer 101 mL/min >60 [facility] Comment on above: GFR Calc Estimated GFR (MDRD) Non-Af Amer 84 mL/min >60 [facility] Comment on above: Non- GFR Calc Vitamin D 25-Hydroxy 76.9 ng/mL [facility] Comment on above: Vitamin D 25(OH) Sta tus Range Deficiency <20 ng/mL (50nmol/L) Insufficiency 20 - 30 ng/mL (50 - 75 nmol/L) Sufficiency 30 - 100 ng/mL (75 - 250 nmol/L) Toxicity >100 ng/mL (>250 nmol/L) Platelets bldOrdered By: Pasquale Montilla on 02-24-2023 Platelets (Bld) [#/Vol] 310 10*3/uL 150-450 [facility] Serum or plasma albumin benedicto urement (mass/volume)Ordered By: Daniel Montilla on 02-24-2023 Albumin [Mass/Vol] 3.7 g/dL 3.2-5.0 [facility] Serum or plasma albumin/glob ulin mass ratioOrdered By: Daniel Montilla on 02-24-2023 Albumin/Globulin [Mass ratio] 1.1 {ratio} 0.9-2.4 [facility] Serum or plasma calcium benedicto urement (mass/volume)Ordered By: Daniel Montilla on 02-24-2023 Calcium [Mass/Vol] 9.6 mg/dL 8.5-10.1 [facility] Serum or plasma cholesterol in HDL measurement (mass/volume)Ordered By: Daniel Montilla on 02-24-2023 Cholesterol in HDL [Mass/Vol] 51 mg/dL >40 [facility] Comment on above: The drugs N-Acetylcy steine and Metamizole may falsely depress this assay. Reference Range HDL <40 mg/dL Low HDL Cholesterol HDL >or= 60 mg/dL High HDL Cholesterol Serum or plasma cholesterol in VLDL measurement (mass/volume)Ordered By: Daniel Montilla on 02-24-2023 Cholesterol in VLDL [Mass/Vol] 25 mg/dL 5-40 [facility] Serum or plasma creatinine m easurement (mass/volume)Ordered By: Daniel Montilla on 02-24-2023 Creatinine [Mass/Vol] 0.74 mg/dL 0.55-1.02 [facility] Comment on above: The validity of the calculated GFR & GFRAA in patients over 70 years has not been determined. Clinical correlation is essential. Serum or plasma low density lipoprotein (LDL) cholesterol measurement (mass/volume)Ordered By: Daniel Montilla on 02-24-2023 Cholesterol in LDL [Mass/Vol] 106 mg/dL 0-130 [facility] Serum or plasma urea nitroge n measurement (mass/volume)Ordered By: Daniel Montilla on 02-24-2023 Urea nitrogen [Mass/Vol] 12 mg/dL 7-18 [facility] Thin prep Papanicolaou smear with manual screeningOrdered By: Daniel Montilla 02-24-2023 Thin prep Papanicolaou smear with manual screening 17 U/L 15-37 [facility] Thin prep Papanicolaou smear with manual screening 5 5-15 [facility] Basophil percentageon 2021 Bilirubin [Mass/Vol] 0.50 mg/dL 0.20-1.00 [facility] Work Phone: Comment on above: For patients on eltr ombopag therapy, use of Dimension [place] TBIL is not recommended. Chloride [Moles/Vol] 105 mmol/L 98-107 [facility] Work Phone: Cholesterol [Mass/Vol] 200 mg/dL <200 [facility] Work Phone: Comment on above: <200 mg/dL Desirable 200-240 mg/dL Borderline >240 mg/dL High Risk Glucose [Mass/Vol] 99 mg/dL 74-106 [facility] Work Phone: Potassium [Moles/Vol] 4.2 mmol/L 3.5-5.1 [facility] Work Phone: Protein [Mass/Vol] 6.8 g/dL 6.4-8.2 [facility] Work Phone: Sodium [Moles/Vol] 141 mmol/L 136-145 [facility] Work Phone: Triglyceride [Mass/Vol] 172 mg/dL <199 [facility] Work Phone: Comment on above: The drugs N-Acetylcy steine and Metamizole may falsely depress this assay.Serum Triglycerides Reference Interval Normal <150 mg/dL Borderline high 150 - 199 mg/dL High 200 - 499 mg/dL Very High > or = 500 mg/dL WBC (Bld) [#/Vol] 5.2 10*3/uL 4.4-11.0 [facility] Work Phone: Blood erythrocytes count (nu mber/volume)on 08-24-2022 RBC (Bld) [#/Vol] 4.04 10*6/uL 4.2-5.4 [facility] Work Phone: Blood hemoglobin measurement (mass/volume)on 08-24-2022 Hemoglobin (Bld) [Mass/Vol] 12.5 g/dL 12.0-15.0 [facility] Work Phone: Blood platelet mean volumeon 08-24-2022 Platelet mean volume (Bld) [Entitic vol] 9.6 fL 6.2-12.0 [facility] Work Phone: Determination of erythrocyte mean corpuscular volume (MCV)on 08-24-2022 MCV (RBC) [Entitic vol] 94.3 fL 81-99 [facility] Work Phone: Hematocrit Auto (Bld) [Volum e fraction]on 08-24-2022 Hematocrit (Bld) [Volume fraction] 38.1 % 37-47 [facility] Work Phone: Laboratory - Chemistry and C hemistry - challengeon 08-24-2022 ALP [Catalytic activity/Vol] 67 U/L 45-117 [facility] Work Phone: ALT [Catalytic activity/Vol] 31 U/L 13-56 [facility] Work Phone: CO2 [Moles/Vol] 30.0 mmol/L 21.0-32.0 [facility] Work Phone: Globulin (S) [Mass/Vol] 3.3 g/dL 2.2-4.2 [facility] Work Phone: Urea nitrogen/Creatinine [Mass ratio] 18.9 mg/mg 10-20 [facility] Work Phone: Laboratory - Hematology and Cell countson 08-24-2022 Erythrocyte distribution width (RBC) [Entitic vol] 43.9 fL 35.1-43.9 [facility] Work Phone: Erythrocyte distribution width (RBC) [Ratio] 12.7 % 11.6-14.6 [facility] Work Phone: MCH (RBC) [Entitic mass] 30.9 pg 27.0-32.0 [facility] Work Phone: MCHC Auto (RBC) [Mass/Vol]on 08-24-2022 MCHC (RBC) [Mass/Vol] 32.8 g/dL 32-36 [facility] Work Phone: No Panel Informationon 08-24 Estimated GFR (MDRD) Amer 110 mL/min >60 [facility] Work Phone: Comment on above: GFR Calc Estimated GFR (MDRD) Non-Af Amer 91 mL/min >60 [facility] Work Phone: Comment on above: Non- GFR Calc Thyroid Stimulating Hormone (TSH) 1.07 uIU/mL 0.358-3.74 [facility] Work Phone: Vitamin D 25-Hydroxy 83.9 ng/mL [facility] Work Phone: Comment on above: Vitamin D 25(OH) Sta tus Range Deficiency <20 ng/mL (50nmol/L) Insufficiency 20 - 30 ng/mL (50 - 75 nmol/L) Sufficiency 30 - 100 ng/mL (75 - 250 nmol/L) Toxicity >100 ng/mL (>250 nmol/L) Platelets bldon 08-24-2022 Platelets (Bld) [#/Vol] 328 10*3/uL 150-450 [facility] Work Phone: Serum or plasma albumin benedicto urement (mass/volume)on 08-24-2022 Albumin [Mass/Vol] 3.5 g/dL 3.2-5.0 [facility] Work Phone: Serum or plasma albumin/glob ulin mass ratioon 08-24-2022 Albumin/Globulin [Mass ratio] 1.1 {ratio} 0.9-2.4 [facility] Work Phone: Serum or plasma calcium benedicto urement (mass/volume)on 08-24-2022 Calcium [Mass/Vol] 9.6 mg/dL 8.5-10.1 [facility] Work Phone: Serum or plasma cholesterol in HDL measurement (mass/volume)on 08-24-2022 Cholesterol in HDL [Mass/Vol] 51 mg/dL >40 [facility] Work Phone: Comment on above: The drugs N-Acetylcy steine and Metamizole may falsely depress this assay. Reference Range HDL <40 mg/dL Low HDL Cholesterol HDL >or= 60 mg/dL High HDL Cholesterol Serum or plasma cholesterol in VLDL measurement (mass/volume)on 08-24-2022 Cholesterol in VLDL [Mass/Vol] 34 mg/dL 5-40 [facility] Work Phone: Serum or plasma creatinine m easurement (mass/volume)on 08-24-2022 Creatinine [Mass/Vol] 0.69 mg/dL 0.55-1.02 [facility] Work Phone: Comment on above: The validity of the calculated GFR & GFRAA in patients over 70 years has not been determined. Clinical correlation is essential. Serum or plasma low density lipoprotein (LDL) cholesterol measurement (mass/volume)on 08-24-2022 Cholesterol in LDL [Mass/Vol] 115 mg/dL 0-130 [facility] Work Phone: Serum or plasma urea nitroge n measurement (mass/volume)on 08-24-2022 Urea nitrogen [Mass/Vol] 13 mg/dL 7-18 [facility] Work Phone: Thin prep Papanicolaou smear with manual screeningon 08-24-2022 Thin prep Papanicolaou smear with manual screening 17 U/L 15-37 [facility] Work Phone: Thin prep Papanicolaou smear with manual screening 6 5-15 [facility] Work Phone: Thin prep Papanicolaou smear with manual screening 6.2 mg/L NO RANGE EST. [facility] Work Phone: Basophil percentageon 2021 Bilirubin [Mass/Vol] 0.40 mg/dL 0.20-1.00 [facility] Work Phone: Comment on above: For patients on eltr ombopag therapy, use of Dimension [place] TBIL is not recommended. Chloride [Moles/Vol] 104 mmol/L 98-[address] [facility] [address] [facility] Work Phone: Cholesterol [Mass/Vol] 195 mg/dL <200 [facility] Work Phone: Comment on above: <200 mg/dL Desirable 200-240 mg/dL Borderline >240 mg/dL High Risk Glucose [Mass/Vol] 95 mg/dL 74-106 [facility] Work Phone: Potassium [Moles/Vol] 3.7 mmol/L 3.5-5.1 [facility] Work Phone: Protein [Mass/Vol] 6.9 g/dL 6.4-8.2 [facility] Work Phone: Sodium [Moles/Vol] 140 mmol/L 136-145 [facility] Work Phone: Triglyceride [Mass/Vol] 152 mg/dL [facility] Work Phone: Comment on above: The drugs N-Acetylcy steine and Metamizole may falsely depress this assay.Serum Triglycerides Reference Interval Normal <150 mg/dL Borderline high 150 - 199 mg/dL High 200 - 499 mg/dL Very High > or = 500 mg/dL WBC (Bld) [#/Vol] 5.2 10*3/uL 4.4-11.0 [facility] Work Phone: Blood erythrocytes count (nu mber/volume)on 02-23-2022 RBC (Bld) [#/Vol] 4.11 10*6/uL 4.2-5.4 [facility] Work [facility]: Blood hemoglobin measurement (mass/volume)on 02-23-2022 Hemoglobin (Bld) [Mass/Vol] 12.6 g/dL 12.0-15.0 [facility] Work Phone: Blood platelet mean volumeon 02-23-2022 Platelet mean volume (Bld) [Entitic vol] 9.8 fL 6.2-12.0 [facility] Work Phone: Determination of erythrocyte mean corpuscular volume (MCV)on 02-23-2022 MCV (RBC) [Entitic vol] 92.0 fL 81-99 [facility] Work Phone: Hematocrit Auto (Bld) [Volum e fraction]on 02-23-2022 Hematocrit (Bld) [Volume fraction] 37.8 % 37-47 [facility] Work Phone: Laboratory - Chemistry and C hemistry - challengeon 02-23-2022 ALP [Catalytic activity/Vol] 69 U/L 45-117 [facility] Work Phone: ALT [Catalytic activity/Vol] 34 U/L 13-56 [facility] Work Phone: CO2 [Moles/Vol] 27.0 mmol/L 21.0-32.0 [facility] Work Phone: Globulin (S) [Mass/Vol] 3.3 g/dL 2.2-4.2 [facility] Work Phone: Urea nitrogen/Creatinine [Mass ratio] 22.8 mg/mg 10-20 [facility] Work Phone: Laboratory - Hematology and Cell countson 02-23-2022 Erythrocyte distribution width (RBC) [Entitic vol] 43.3 fL 35.1-43.9 [facility] Work Phone: Erythrocyte distribution width (RBC) [Ratio] 12.8 % 11.6-14.6 [facility] Work Phone: MCH (RBC) [Entitic mass] 30.7 pg 27.0-32.0 [facility] Work Phone: MCHC Auto (RBC) [Mass/Vol]on 02-23-2022 MCHC (RBC) [Mass/Vol] 33.3 g/dL 32-36 [facility] Work Phone: No Panel Informationon 02-23 Estimated GFR (MDRD) Amer 101 mL/min >60 [facility] Work Phone: Comment on above: GFR Calc Estimated GFR (MDRD) Non-Af Amer 83 mL/min >60 [facility] Work Phone: Comment on above: Non- GFR Calc Vitamin D 25-Hydroxy 85.1 ng/mL [facility] Work Phone: Comment on above: Vitamin D 25(OH) Sta tus Range Deficiency <20 ng/mL (50nmol/L) Insufficiency 20 - 30 ng/mL (50 - 75 nmol/L) Sufficiency 30 - 100 ng/mL (75 - 250 nmol/L) Toxicity >100 ng/mL (>250 nmol/L) Platelets bldon 02-23-2022 Platelets (Bld) [#/Vol] 336 10*3/uL 150-450 [facility] Work Phone: Serum or plasma albumin benedicto urement (mass/volume)on 02-23-2022 Albumin [Mass/Vol] 3.6 g/dL 3.2-5.0 [facility] Work Phone: Serum or plasma albumin/glob ulin mass ratioon 02-23-2022 Albumin/Globulin [Mass ratio] 1.1 {ratio} 0.9-2.4 [facility] Work Phone: Serum or plasma calcium benedicto urement (mass/volume)on 02-23-2022 Calcium [Mass/Vol] 9.3 mg/dL 8.5-10.1 [facility] Work Phone: Serum or plasma cholesterol in HDL measurement (mass/volume)on 02-23-2022 Cholesterol in HDL [Mass/Vol] 48 mg/dL [facility] Work Phone: Comment on above: The drugs N-Acetylcy steine and Metamizole may falsely depress this assay. Reference Range HDL <40 mg/dL Low HDL Cholesterol HDL >or= 60 mg/dL High HDL Cholesterol Serum or plasma cholesterol in VLDL measurement (mass/volume)on 02-23-2022 Cholesterol in VLDL [Mass/Vol] 30 mg/dL 5-40 [facility] Work Phone: Serum or plasma creatinine m easurement (mass/volume)on 02-23-2022 Creatinine [Mass/Vol] 0.74 mg/dL 0.55-1.02 [facility] Work Phone: Comment on above: The validity of the calculated GFR & GFRAA in patients over 70 years has not been determined. Clinical correlation is essential. Serum or plasma low density lipoprotein (LDL) cholesterol measurement (mass/volume)on 02-23-2022 Cholesterol in LDL [Mass/Vol] 117 mg/dL 0-130 [facility] Work Phone: Serum or plasma urea nitroge n measurement (mass/volume)on 02-23-2022 Urea nitrogen [Mass/Vol] 17 mg/dL 7-18 [facility] Work Phone: Thin prep Papanicolaou smear with manual screeningon 02-23-2022 Thin prep Papanicolaou smear with manual screening 23 U/L 15-37 [facility] Work Phone: Thin prep Papanicolaou smear with manual screening 9 5-15 [facility] Work Phone: Vital Signs Date Time Vital Sign Value Performing Clinician Petersoni alvaro 09-28-2022 13:43-0500 Body height 173.99 cm [facility] Work Phone: Encounters Encounter Date Encounter Type Care Provider Facility Start: 05-24-2025 End: 05-24-2025 ambulatory JEFF JEONG DPM Facility:[facility] Start: 05-24-2025 End: 05-24-2025 SAME DAY STAY JEFF JEONG DPM [facility] Start: 05-15-2025 End: 05-15-2025 Admission to establishment JEFF JEONG DPM [facility] Start: 05-15-2025 End: 05-15-2025 ambulatory DANIEL MONTILLA [employer] Facility:[facility] Start: 04-04-2025 End: 04-04-2025 ambulatory Daniel Montilla [employer] Work Phone: [facility] Start: 04-04-2025 End: 04-04-[address] Urbano Pavon MD [facility] Work Phone: Start: 04-04-2025 End: 04-04-2025 ambulatory Urbano Pavon Facility:[facility] Start: 04-02-2025 End: 04-02-2025 ambulatory Daniel Montilla [employer] Work Phone: [facility] Work Phone: Start: 04-02-2025 End: 04-02-[address] Urbano Pavon MD [facility] [place] Work Phone: Start: 04-02-2025 End: 04-02-2025 ambulatory Urbano Pavon Facility:[facility] Start: 03-27-2025 End: 03-27-2025 ambulatory Daniel Montilla [employer] Work Phone: [facility] Work Phone: Start: 03-27-2025 End: 03-27-[address] Urbano Pavon MD -[facility] [place] Work Phone: Start: 03-27-2025 End: 03-27-2025 ambulatory Urbano Pavon [facility] [facility] Start: 02-22-2025 End: 02-22-2025 ambulatory Daniel Montilla PRIVATE DUTY NURSE-C Work Phone: [facility] Work Phone: Start: 02-22-2025 End: 02-22-2025 Patient encounter procedure Daniel Montilla PRIVATE DUTY NURSE-C -Laboratory [place] Work Phone: Start: 02-22-2025 End: 02-22-2025 ambulatory Daniel Montilla PRIVATE DUTY NURSE Facility:[facility] Start: 12-20-2024 End: 12-20-2024 ambulatory Daniel Montilla PRIVATE DUTY NURSE-C Work Phone: [facility] Work Phone: Start: 12-20-2024 End: 12-20-[address] Elza Adam MD -Outpatient Breast Imaging Work Phone: Start: 12-20-2024 End: 12-20-2024 ambulatory Elza Adam Facility:[facility] Start: 2024 End: 2024 ambulatory Daniel Montilla NP Facility:[facility] Start: 12-06-2023 End: 12-06-2023 ambulatory [facility] Work Phone: Start: 12-06-2023 End: 12-06-2023 Patient encounter procedure [facility]-Outpatient Breast Imaging Work Phone: Start: 09-22-2023 End: 09-22-2023 ambulatory REGINA SPIVEY MD Facility:B Start: 09-14-2023 End: 09-15-2023 ambulatory REGINA SPIVEY MD Facility:B Start: 08-19-2023 End: 08-20-2023 ambulatory DANIEL MONTILLA [employer] - TROLLEY COLLECTOR Facility:B Start: 08-19-2023 End: 08-19-2023 Patient encounter procedure MANJIT MAST [employer]TERNMA[employer]-TROLLEY COLLECTOR [facility] Start: 08-19-2023 End: 08-19-2023 Patient encounter procedure [facility] Work Phone: Start: 03-04-2023 End: 03-09-2023 ambulatory DANIEL MONTILLA [employer] - [employer]OLLEY COLLECTOR Facility:B Start: 02-24-2023 End: 02-24-2023 ambulatory [facility] Work Phone: Start: 02-24-2023 End: 02-24-2023 Patient encounter procedure [facility] Start: 09-28-2022 End: 09-28-2022 ambulatory [facility] Work Phone: Start: 09-28-2022 End: 09-28-2022 Patient encounter procedure [facility]-Outpatient Breast Imaging Start: 08-31-2022 End: 09-04-2022 Outreach Lab ELZA ADAM MD [facility] Start: 08-24-2022 End: 08-24-2022 ambulatory [facility] Work Phone: Start: 08-24-2022 End: 08-24-2022 Patient encounter procedure [facility]-Laboratory, [place] Start: 02-23-2022 End: 02-23-2022 Patient encounter procedure [facility]-Laboratory, [place] Procedures Date Procedure Procedure Detail Performing Clinician Start: 04-04-2025 X-ray of chest, PA and lateral views Pasquale melinda Montilla PRIVATE DUTY NURSE-C Work Phone: Start: 04-02-2025 In-vitro immunologic test Daniel vigil PRIVATE DUTY NURSE-C Work Phone: Comment on above: QuantiFERON-TB Gold Plus is a qualitativ e indirect test forM tuberculosis infection (including disease) and isintended for use in conjunction with risk assessment,radiography, and other medical and diagnostic evaluations.The QuantiFERON-TB Gold Plus result is determined bysubtracting the Nil value from either TB antigen (Ag)value. The Mitogen tube serves as a control for the test. Client Requested Fla gA response to M tuberculosis antigens has been detected.If patient is at low risk for Tuberculosis, the resultshould be interpreted with caution and repeat testing on anew specimen is recommended (ATS/IDSA/CDC Clinical PracticeGuidelines, 2017). False positives can also occur due toinfection by M kansasii, M szulgai, or M marinum.The specimen received for QuantiFERON testing was incubatedby the ordering institution. Specific procedures outlinedin our Directory of Services and in the package insert forthe QuantiFERON Gold (In Tube) test must be followed toenable for proper stimulation of cells for the productionof interferon gamma. Chemiluminescence immunoassaymethodologyPerformed at: [facility], [address] [place], [place] [id number] Director: Gio Brice PhD, Phone: [phone] Start: 03-27-2025 Hepatitis B core antibody measurement, IgM type Daniel Montilla PRIVATE DUTY NURSE-C Work Phone: Comment on above: Performed at: [facility], [address] [place], [place] [id number] Director: Gio Brice PhD, Phone: [phone] Start: 03-27-2025 Hepatitis B e antigen test Daniel barron PRIVATE DUTY NURSE-C Work Phone: Start: 03-27-2025 Hepatitis C antibody measurement Daniel Montilla PRIVATE DUTY NURSE-C Work Phone: Comment on above: Reactive: Presumptive evidence of antibo dies to HCV. Follow CDC recommendations for supplemental testing.Non-Reactive: Antibodies to HCV were not detected; does not exclude the possibility of exposure to HCVReactive Results are presumptive evidence of antibodies to HCV. Follow CDC recommendations for supplemental testing.Order confirmation testing: HCV Quant by PCR testing - HCVPCR #[id number] Non Reactive: < 0.8 Equivocal: >/= 0.8 to < 1.0 Reactive: >/= 1.0The CDC requires that a reactive/equivocal HCV antibody result be sent out for confirmation. HCV Quant by PCR testing. Start: 03-27-2025 In-vitro immunologic test Daniel Hoffman ns PRIVATE DUTY NURSE-C Work Phone: Comment on above: QuantiFERON-TB Gold Plus is a qualitativ e indirect test forM tuberculosis infection (including disease) and isintended for use in conjunction with risk assessment,radiography, and other medical and diagnostic evaluations.The QuantiFERON-TB Gold Plus result is determined bysubtracting the Nil value from either TB antigen (Ag)value. The Mitogen tube serves as a control for the test. Client Requested Fla gA response to M tuberculosis antigens has been detected.If patient is at low risk for Tuberculosis, the resultshould be interpreted with caution and repeat testing on anew specimen is recommended (ATS/IDSA/CDC Clinical PracticeGuidelines, 2017). False positives can also occur due toinfection by M kansasii, Wayne wheeler, or Wayne bates.The specimen received for QuantiFERON testing was incubatedby the ordering institution. Specific procedures outlinedin our Directory of Services and in the package insert forthe QuantiFERON Gold (In Tube) test must be followed toenable for proper stimulation of cells for the productionof interferon gamma. Chemiluminescence immunoassaymethodology Start: 02-22-2025 Vitamin D, 25-hydroxy measurement Stan sapphire Montilla NP-C Work Phone: Comment on above: Vitamin D StatusDeficiency: <20 ng/mL (5 0nmol/L)Insufficiency: 20-30 ng/mL (50-75 nmol/L)Sufficiency: 30-100 ng/mL (75-250 nmol/L)Toxicity: >100 ng/mL (>250 nmol/L) Start: 12-20-2024 Screening mammography Daniel Montilla NP-C Work Phone: Start: 12-06-2023 Screening mammography Start: 09-22-2023 History of repair of umbilical hernia MAGUI JEONG DPM Comment on above: Robotic assisted umbilical hernia repair Start: 09-28-2022 Dual energy X-ray absorptiometry Start: 09-28-2022 Screening mammography Start: 10-17-2018 Cataract (disorder) MANJIT MAST [employer]-TROLLEY COLLECTOR Comment on above: Bilateral Start: 10-17-1991 Tubal ligation done MANJIT MAST [employer]-TROLLEY COLLECTOR Bilateral bone spur of calcaneum (disorder) ELZA ADAM MD Ligation of fallopian tube A NEHA ADAM MD Plan of Treatment Date Care Activity Detail Author Start: 04-02-2025 In-vitro immunologic test [facility] Mycobacterium tuberc ulosis tuberculin stimulated gamma interferon [Presence[facility] Immunizations Immunization Date Immunization Notes Care Provider Fa cili 09-03-2022 influenza, high dose seasonal, preservative-free ELZA ADAM MD [facility] 03-11-2022 SARS-CoV-2 (COVID-19 ) mRNA-1273 vaccine MANJIT MCRAE APRNKEISHA [facility] 09-14-2021 SARS-CoV-2 (COVID-19 ) mRNA-1273 vaccine ELZA ADAM MD [facility] 01-14-2021 COVID-19, mRNA, LNP- S, PF, 100 mcg or 50 mcg dose; Translations: [Moderna COVID-19 Vaccine] ELZA ADAM MD [facility] 12-17-2020 COVID-19, mRNA, LNP- S, PF, 100 mcg or 50 mcg dose; Translations: [Moderna COVID-19 Vaccine] ELZA ADAM MD [facility] Comment on above: Result Comment: Bebo Hayes Payers Date Payer Category Payer Self-pay [id number] 2024 Private Health Insurance [id number] 2023 Unknown [id number] 2015 Unknown [id number] [facility] 1955 Unknown [id number] 1957 Unknown [id number] 1957 Unknown [id number] 1957 Unknown [id number] 1957 Unknown [id number] 1957 Unknown [id number] Self-pay [id number] Unknown [id number] Unknown [facility] PACKAGE PLAN [phone] [id number] Unknown [id number] Unknown [id number] Unknown [id number] [id number] Unknown [id number] Unknown [id number] Unknown [id number] Unknown [id number] Social History Date Type Detail [facility] Work Phone: Start: 1955 Sex Assigned At Female A [facility] Start: 2019 End: 05-15-2025 Tobacco smoking status Ex-smoker (finding) [facility] Work Phone: Start: 04-11-2019 End: 01-01-2025 Sex Female (finding) [facility] Sexual O[place] [facility] [place] Clinical Notes 04-05-2025 to 05-24-2025 LaboratoryRadiologyLaboratoryRadiologyLaboratoryRadiology Note Date & Type Note Facility 05-24-2025 Hospital Discharge instructions Patient Education 05/24/2025 11:47:38 How to Use a Walker How to Use a Walker This sheet gives you information about how to use a walker. Your health care provider may also: Give you more specific instructions based on your condition. Give you instructions on how to use your legs or arms to support your body weight (weight bearing). What are the risks? Using a walker is generally safe. However, it may cause falls if it is not used correctly. How to walk with a walker The best way to walk with a walker depends on whether you are using a standard walker or a front-wheeled walker. A standard walker has rubber tips on the ends of all four legs. A front-wheeled walker has wheels on the ends of the front legs and rubber tips on the ends of the back legs. Do not use your walker on stairs or an escalator unless you have been trained by a physical therapist and your health care provider approves. Standard walker 1.grinder set up operator universal your walker. Do not slide your standard walker. 2.Set down your walker, one step-length in front of you. Make sure that all four legs of the walker touch the ground at the same time. Your toes should be farther forward than the back legs of your walker. 3.Hold on to the walker, and press it with your arms for support. 4.Step your weaker leg into the middle of the walker. Step your stronger leg forward to land next to your weaker leg. 5.Repeat this process for each step. Front-wheeled walker 1.Slide your front-wheeled walker one step-length in front of you. Your toes should be farther forward than the back legs of your walker. 2.Hold on to the walker for support and press through the handrails as needed for support. 3.Step your weaker leg into the middle of the walker. Step your stronger leg forward to land next to your weaker leg. 4.Repeat the process for each step. Tips Always keep both feet within the width of the walker's legs or wheels. When using your walker, you should not feel like you need to lean forward or to the side to keep your hands on the handgrips. Make sure you are following any weight-bearing instructions that your health care provider gave you. If you have a standard walker: ?Do not slide your walker when you are moving. If you have a front-wheeled walker: ?Be careful not to let the walker get too far ahead of you as you walk. ?If your walker does not glide well over carpet, consider cutting an "X" into two tennis balls and placing the balls over the back legs of your walker. How to stand up with a walker 1.Put your walker in front of you. 2.Slide forward in your chair. 3.Position your legs so that your weaker leg is ahead of you and your stronger leg is bent and near your chair. 4.Position your hands. If your chair has armrests, put each hand on an armrest. If there are no armrests, put the hand opposite your weaker leg on the chair seat, and put the other hand on the center of the walker's crossbar. 5.Lean forward and push up from your chair. 6.Rise by straightening your stronger leg. 7.Steady yourself. 8.Carefully move your hands to the handgrips of the walker. Tips Do not pull on the walker when you stand up. This may cause it to tip. Sit in a firm chair whenever you can. A low seat or an overstuffed chair or sofa is hard to get out of. How to sit down with a walker Seat with armrests 1.Back up toward your seat, using your walker, until you feel the back of your legs touch the chair. 2.Carefully reach your hands behind you and put each hand on an armrest. 3.Slowly lower yourself into the seat with your injured leg out in front. Seat without armrests 1.Back up toward the side of the seat, using your walker, until you feel the back of your legs touch the chair. 2.Use one hand to hold on to the back of the chair, and use the other hand to hold on to the front of the seat. 3.Slowly lower yourself into the seat. How to use a walker on a curb or step Stepping up 1.Put all four legs of the walker on the curb or step. 2.Get your feet as close to the curb or step as you can. 3.Test the steadiness of the walker by pressing down on the handgrips. 4.If the walker is steady, press down on it with your hands as you step up with your stronger leg. 5.Step up with your weaker leg. Stepping down 1.Put all four legs of the walker on the surface that is lower than the curb or step. 2.Get your feet as close to the curb or step as you can. 3.Test the steadiness of the walker by pressing down on the handgrips. 4.If the walker is steady, press down on it with your hands as you step down with your weaker leg. 5.Step down with your stronger leg. Summary Follow specific instructions from your health care provider on how to use a walker. Do not use your walker on stairs or an escalator unless you have been trained by a physical therapist and your health care provider approves. Make sure you are following any weight-bearing instructions that your health care provider gave you. This information is not intended to replace advice given to you by your health care provider. Make sure you discuss any questions you have with your health care provider. Document Released: 10/03/2006 Document Revised: 08/29/2019 Document Reviewed: 08/29/2019 [employer] Patient Education 2020 [employer] 05/24/2025 11:45:42 [facility]- [facility] General Discharge Guidelines (07/01/2023) (Custom) [facility] SAME DAY SURGERY DISCHARGE INSTRUCTIONS PLEASE FOLLOW THE INSTRUCTIONS BELOW MARKED WITH AN X: __x_Regular Diet: Start with clear liquids, then soup and crackers. Gradually add other foods unless otherwise instructed by your surgeon __X_Drink extra fluids ACTIVTY: __X_Since you have had anesthetic, it would be advisable not to drive, drink alcohol, or make major decisions over the next 24 hours. You may require more rest tonight and tomorrow __X_Do not drive vehicle while taking narcotics and as directed by your Surgeon ____Restrict activity as follows: ____No heavy lifting, pushing, or straining __x__Elevate operative limb __x__Ice as directed __X_Follow all written and verbal instructions given to you by your Doctor ____Other: BATHING/SHOWERING __x__Sponge bathe until office visit. ____Sitting in tub of warm water may relieve discomfort ____May tub bathe ____May shower in 24-48 hours with clean linen unless otherwise instructed by your Doctor DRESSING: __x__Keep operative area clean and dry ___x_Check the operative area for signs of bleeding. Apply pressure to the bleeding site if necessary. ____Change drip pad as needed WATCH FOR SIGNS OF INFECTION: (Usually appears 36-48 hours after surgery) Increased temperature (101 degrees Fahrenheit or higher) Redness or swelling Increased pain Foul odor or drainage If you have any questions, please call your doctor at the number listed on your follow-up instructions. 05/24/2025 11:19:35 General Anesthesia, Adult, Care After General Anesthesia, Adult, Care After This sheet gives you information about how to care for yourself after your procedure. Your health care provider may also give you more specific instructions. If you have problems or questions, contact your health care provider. What can I expect after the procedure? After the procedure, the following side effects are common: Pain or discomfort at the IV site. Nausea. Vomiting. Sore throat. Trouble concentrating. Feeling cold or chills. Weak or tired. Sleepiness and fatigue. Soreness and body aches. These side effects can affect parts of the body that were not involved in surgery. Follow these instructions at home: For at least 24 hours after the procedure: Have a responsible adult stay with you. It is important to have someone help care for you until you are awake and alert. Rest as needed. Do not: ?Participate in activities in which you could fall or become injured. ?Drive. ?Use heavy machinery. ?Drink alcohol. ?Take sleeping pills or medicines that cause drowsiness. ?Make important decisions or sign legal documents. ?Take care of children on your own. Eating and drinking Follow any instructions from your health care provider about eating or drinking restrictions. When you feel hungry, start by eating small amounts of foods that are soft and easy to digest (bland), such as toast. Gradually return to your regular diet. Drink enough fluid to keep your urine pale yellow. If you vomit, rehydrate by drinking water, juice, or clear broth. General instructions If you have sleep apnea, surgery and certain medicines can increase your risk for breathing problems. Follow instructions from your health care provider about wearing your sleep device: ?Anytime you are sleeping, including during daytime naps. ?While taking prescription pain medicines, sleeping medicines, or medicines that make you drowsy. Return to your normal activities as told by your health care provider. Ask your health care provider what activities are safe for you. Take dhvc-arj-vltmrje and prescription medicines only as told by your health care provider. If you smoke, do not smoke without supervision. Keep all follow-up visits as told by your health care provider. This is important. Contact a health care provider if: You have nausea or vomiting that does not get better with medicine. You cannot eat or drink without vomiting. You have pain that does not get better with medicine. You are unable to pass urine. You develop a skin rash. You have a fever. You have redness around your IV site that gets worse. Get help right away if: You have difficulty breathing. You have chest pain. You have blood in your urine or stool, or you vomit blood. Summary After the procedure, it is common to have a sore throat or nausea. It is also common to feel tired. Have a responsible adult stay with you for the first 24 hours after general anesthesia. It is important to have someone help care for you until you are awake and alert. When you feel hungry, start by eating small amounts of foods that are soft and easy to digest (bland), such as toast. Gradually return to your regular diet. Drink enough fluid to keep your urine pale yellow. Return to your normal activities as told by your health care provider. Ask your health care provider what activities are safe for you. This information is not intended to replace advice given to you by your health care provider. Make sure you discuss any questions you have with your health care provider. Document Released: 01/09/2002 Document Revised: 10/06/2018 Document Reviewed: 05/19/2018 [employer] Patient Education 2020 [employer] Follow Up Care 05/09/2025 10:36:04 With:JEFF JEONG Address: [address] [facility] [place] [address]- Business (1) When:05/29/2025 15:00:00 [facility] 05-24-2025 Note Discharge Instructions Thank you for allowing [facility] to assist you with your healthcare needs. The following is important discharge information regarding your hospital visit. Your Care Team DANIEL MONTILLA APRN, CNP What to do next Scheduled Follow-Up Appointments Appointment Type When With Where Contact Information StatusPC OV Follow Up 08/30/2025 10:00 AM EST DANIEL MONTILLA APRN, CNP [facility] Confirmed Follow Up Appointments Follow Up with JEFF JEONG When:05/29/2025 03:00 PM EDT Where:[address], [address] [facility] [place] [address]- Business (1) Allergies penicillins Unknown Medications Please ask your primary doctor or pharmacist before taking any other medication not listed, including over the counter drugs, herbal medications, vitamins and or supplements as they may interact with your home medications. What How Much When Why Instructions Last Dose Unchanged ergocalciferol (ergocalciferol 50,000 intl units (1.25 mg) oral capsule) 1 cap by mouth Every other week Duration: 90 Days Unchanged hydroCHLOROthiazide (hydroCHLOROthiazide 25 mg oral tablet) 1 tab(s) by mouth Once a day Unchanged isoniazid (isoniazid 300 mg oral tablet) 1 tab(s) by mouth Once a day Unchanged lisinopril (lisinopril 40 mg oral tablet) 1 tab(s) by mouth Once a day Unchanged magnesium oxide (Magnesium 250 mg tablet) by mouth Once a day Unchanged multivitamin (Multivitamin) 1 tab(s) by mouth Every day Unchanged naproxen (naproxen 500 mg oral tablet) 1 tab(s) by mouth Two (2) times a day as needed for as needed for arthritis Psoriatic arthritis Duration: 90 Days Unchanged omeprazole (omeprazole 40 mg oral delayed release capsule) 1 cap by mouth Once a day Unchanged pyridoxine (Vitamin B6 50 mg oral tablet) 1 tab(s) by mouth Every day Please take this list to your next doctor s visit. Bring all medications you take, including over the counter medications, herbals and other supplements with you to your doctor s visit. Patients and families are reminded to discard old lists and to update any records with all medication providers or retail pharmacies. Education Materials How to Use a Walker This sheet gives you information about how to use a walker. Your health care provider may also: Give you more specific instructions based on your condition. Give you instructions on how to use your legs or arms to support your body weight (weight bearing). What are the risks? Using a walker is generally safe. However, it may cause falls if it is not used correctly. How to walk with a walker The best way to walk with a walker depends on whether you are using a standard walker or a front-wheeled walker. A standard walker has rubber tips on the ends of all four legs. A front-wheeled walker has wheels on the ends of the front legs and rubber tips on the ends of the back legs. Do not use your walker on stairs or an escalator unless you have been trained by a physical therapist and your health care provider approves. Standard walker 1. grinder set up operator universal your walker. Do not slide your standard walker. 2. Set down your walker, one step-length in front of you. Make sure that all four legs of the walker touch the ground at the same time. Your toes should be farther forward than the back legs of your walker. 3. Hold on to the walker, and press it with your arms for support. 4. Step your weaker leg into the middle of the walker. Step your stronger leg forward to land next to your weaker leg. 5. Repeat this process for each step. Front-wheeled walker 1. Slide your front-wheeled walker one step-length in front of you. Your toes should be farther forward than the back legs of your walker. 2. Hold on to the walker for support and press through the handrails as needed for support. 3. Step your weaker leg into the middle of the walker. Step your stronger leg forward to land next to your weaker leg. 4. Repeat the process for each step. Tips Always keep both feet within the width of the walker's legs or wheels. When using your walker, you should not feel like you need to lean forward or to the side to keep your hands on the handgrips. Make sure you are following any weight-bearing instructions that your health care provider gave you. If you have a standard walker: ? Do not slide your walker when you are moving. If you have a front-wheeled walker: ? Be careful not to let the walker get too far ahead of you as you walk. ? If your walker does not glide well over carpet, consider cutting an "X" into two tennis balls and placing the balls over the back legs of your walker. How to stand up with a walker 1. Put your walker in front of you. 2. Slide forward in your chair. 3. Position your legs so that your weaker leg is ahead of you and your stronger leg is bent and near your chair. 4. Position your hands. If your chair has armrests, put each hand on an armrest. If there are no armrests, put the hand opposite your weaker leg on the chair seat, and put the other hand on the center of the walker's crossbar. 5. Lean forward and push up from your chair. 6. Rise by straightening your stronger leg. 7. Steady yourself. 8. Carefully move your hands to the handgrips of the walker. Tips Do not pull on the walker when you stand up. This may cause it to tip. Sit in a firm chair whenever you can. A low seat or an overstuffed chair or sofa is hard to get out of. How to sit down with a walker Seat with armrests 1. Back up toward your seat, using your walker, until you feel the back of your legs touch the chair. 2. Carefully reach your hands behind you and put each hand on an armrest. 3. Slowly lower yourself into the seat with your injured leg out in front. Seat without armrests 1. Back up toward the side of the seat, using your walker, until you feel the back of your legs touch the chair. 2. Use one hand to hold on to the back of the chair, and use the other hand to hold on to the front of the seat. 3. Slowly lower yourself into the seat. How to use a walker on a curb or step Stepping up 1. Put all four legs of the walker on the curb or step. 2. Get your feet as close to the curb or step as you can. 3. Test the steadiness of the walker by pressing down on the handgrips. 4. If the walker is steady, press down on it with your hands as you step up with your stronger leg. 5. Step up with your weaker leg. Stepping down 1. Put all four legs of the walker on the surface that is lower than the curb or step. 2. Get your feet as close to the curb or step as you can. 3. Test the steadiness of the walker by pressing down on the handgrips. 4. If the walker is steady, press down on it with your hands as you step down with your weaker leg. 5. Step down with your stronger leg. Summary Follow specific instructions from your health care provider on how to use a walker. Do not use your walker on stairs or an escalator unless you have been trained by a physical therapist and your health care provider approves. Make sure you are following any weight-bearing instructions that your health care provider gave you. This information is not intended to replace advice given to you by your health care provider. Make sure you discuss any questions you have with your health care provider. Document Released: 10/03/2006 Document Revised: 08/29/2019 Document Reviewed: 08/29/2019 [employer] Patient Education 2020 [employer]. [facility] SAME DAY SURGERY DISCHARGE INSTRUCTIONS PLEASE FOLLOW THE INSTRUCTIONS BELOW MARKED WITH AN X: __x_Regular Diet: Start with clear liquids, then soup and crackers. Gradually add other foods unless otherwise instructed by your surgeon __X_Drink extra fluids ACTIVTY: __X_Since you have had anesthetic, it would be advisable not to drive, drink alcohol, or make major decisions over the next 24 hours. You may require more rest tonight and tomorrow __X_Do not drive vehicle while taking narcotics and as directed by your Surgeon ____Restrict activity as follows: ____No heavy lifting, pushing, or straining __x__Elevate operative limb __x__Ice as directed __X_Follow all written and verbal instructions given to you by your Doctor ____Other: BATHING/SHOWERING __x__Sponge bathe until office visit. ____Sitting in tub of warm water may relieve discomfort ____May tub bathe ____May shower in 24-48 hours with clean linen unless otherwise instructed by your Doctor DRESSING: __x__Keep operative area clean and dry ___x_Check the operative area for signs of bleeding. Apply pressure to the bleeding site if necessary. ____Change drip pad as needed WATCH FOR SIGNS OF INFECTION: (Usually appears 36-48 hours after surgery) Increased temperature (101 degrees Fahrenheit or higher) Redness or swelling Increased pain Foul odor or drainage If you have any questions, please call your doctor at the number listed on your follow-up instructions. General Anesthesia, Adult, Care After This sheet gives you information about how to care for yourself after your procedure. Your health care provider may also give you more specific instructions. If you have problems or questions, contact your health care provider. What can I expect after the procedure? After the procedure, the following side effects are common: Pain or discomfort at the IV site. Nausea. Vomiting. Sore throat. Trouble concentrating. Feeling cold or chills. Weak or tired. Sleepiness and fatigue. Soreness and body aches. These side effects can affect parts of the body that were not involved in surgery. Follow these instructions at home: For at least 24 hours after the procedure: Have a responsible adult stay with you. It is important to have someone help care for you until you are awake and alert. Rest as needed. Do not: ? Participate in activities in which you could fall or become injured. ? Drive. ? Use heavy machinery. ? Drink alcohol. ? Take sleeping pills or medicines that cause drowsiness. ? Make important decisions or sign legal documents. ? Take care of children on your own. Eating and drinking Follow any instructions from your health care provider about eating or drinking restrictions. When you feel hungry, start by eating small amounts of foods that are soft and easy to digest (bland), such as toast. Gradually return to your regular diet. Drink enough fluid to keep your urine pale yellow. If you vomit, rehydrate by drinking water, juice, or clear broth. General instructions If you have sleep apnea, surgery and certain medicines can increase your risk for breathing problems. Follow instructions from your health care provider about wearing your sleep device: ? Anytime you are sleeping, including during daytime naps. ? While taking prescription pain medicines, sleeping medicines, or medicines that make you drowsy. Return to your normal activities as told by your health care provider. Ask your health care provider what activities are safe for you. Take [id number]-clo-gcwmifs and prescription medicines only as told by your health care provider. If you smoke, do not smoke without supervision. Keep all follow-up visits as told by your health care provider. This is important. Contact a health care provider if: You have nausea or vomiting that does not get better with medicine. You cannot eat or drink without vomiting. You have pain that does not get better with medicine. You are unable to pass urine. You develop a skin rash. You have a fever. You have redness around your IV site that gets worse. Get help right away if: You have difficulty breathing. You have chest pain. You have blood in your urine or stool, or you vomit blood. Summary After the procedure, it is common to have a sore throat or nausea. It is also common to feel tired. Have a responsible adult stay with you for the first 24 hours after general anesthesia. It is important to have someone help care for you until you are awake and alert. When you feel hungry, start by eating small amounts of foods that are soft and easy to digest (bland), such as toast. Gradually return to your regular diet. Drink enough fluid to keep your urine pale yellow. Return to your normal activities as told by your health care provider. Ask your health care provider what activities are safe for you. This information is not intended to replace advice given to you by your health care provider. Make sure you discuss any questions you have with your health care provider. Document Released: 01/09/2002 Document Revised: 10/06/2018 Document Reviewed: 05/19/2018 [employer] Patient Education 2020 [employer]. Additional Information VACCINATE! IT SAVES LIVES! Members of the community who have not yet received the COVID-19 vaccine and would like to receive it can visit one of [facility] vaccine clinics. There are many vaccine clinic locations within the [facility]. For locations and available times, please visit [email or web address].[place] .[email or web address] It is important to note that some COVID mobile vaccine clinics are held outdoors and may be canceled in rainy or stormy conditions. To learn more about pediatric vaccinations (ages 5-11), we invite you to visit the [facility] webpage. [email or web address] -[email or web address] To learn more about the COVID-19 vaccine, we invite you to visit the CDC website for a list of frequently asked questions.https://www.cdc.gov/coron avirus/2019-ncov/vaccines/faq.html [facility] Patient Portal Access Instructions: Stay connected with your healthcare team and access your personal medical information anytime with the [employer] Patient Portal. Please follow the directions below to create your [employer] account: 1.Access the email account you provided upon registration to the hospital/physician office.2.Look for an invitation email from [facility].3.Open the email and access the invitation link: Accept Invitation to [employer] [employer].4.Fill in the required osorio to create your account. To access your account, visit [email or web address]. Click the blue button labeled "Access Patient Portal" and then log in with the username and password that you created in the steps above. You will be able to view your test results, lab results, a summary of your visits, upcoming appointments and more. There is also a convenient messaging option where you can send secure messages to your provider. In addition, you will have the ability to download any documents or summaries to your computer and/or send the information securely to a physician. Remember that your healthcare information is confidential, so carefully consider who you will allow to register on the [employer] Patient Portal for access to your information. You can also access the [employer] Patient Portal on the [employer] [facility]. Simply click on "Patient Portal" and then log into your account. If you would like to receive a full copy of your medical records, please contact the [facility] Medical Records Department by calling [phone], Tuesday through Tuesday between 8 a.m. and 4:30 p.m. HOW TO SAFELY DISPOSE OF PRESCRIPTION MEDICATIONS Please use one of the following methods to safely dispose of your unused medications. 1.Use a drug disposal kit: the drug disposal pouch allows you to safely discard your old and unused drugs. Ask your nurse to give you one when you are discharged.2.Visit a local take-back location: Many local pharmacies and police departments have programs that collect old and unwanted prescription drugs. Call your local pharmacy or go to http://bit.[employer]/0U9Oc2q to find one close to you.3.Make use of household items: Use cat litter or old coffee grounds to dispose medications if other options are not available. Mix your drugs with these household products, seal them in an airtight container and throw it into the garbage. Call [facility]: [phone] to be sure your drugs can be disposed of in this way. Some medicines may require a different approach.4.Never flush your medications down the toilet. IF YOU HAVE BEEN PRESCRIBED AN OPIOID FOR PAIN If you have been prescribed an opioid (such as hydrocodone, oxycodone or morphine), it is critical to understand the possible side effects and risks of opioid pain medications. Even when taken as directed, opioids can have several side effects including: Tolerance, meaning you might need to take more of a medication for the same pain relief. Nausea, vomiting and/or constipation. Sleepiness, dizziness, dry mouth, confusion, depression or itching. Physical dependence, meaning you have withdrawal symptoms when a medication is stopped, can develop within a few days. KNOW YOUR RESPONSIBILITIES It is important to know exactly how much and how often to take the opioid pain medications you are prescribed. Never take opioids in higher amounts or more often than prescribed. Do not combine opioids with alcohol or other drugs that cause drowsiness, such as benzodiazepines, also known as benzos, including diazepam and alprazolam, muscle relaxants or sleep aids. Never sell or share prescription opioids. This is illegal. Store opioids in a secure place and out of reach of others (including children, family, friends and visitors). The last page of this document has been signed and retained as a CHART COPY. Signatures Patient Education Materials How to Use a Walker 1- SDS General Discharge Guidelines (07/01/2023) (Custom) General Anesthesia, Adult, Care After Medication Leaflets My discharge plan and instructions have been reviewed and explained to me and I,SAV ROJAS understand my current condition and have read and understand these discharge instructions. I have received a written copy of the plan/instructions. If I have questions, I am aware that I should contact my doctor. Patient/Pool Hall Inspector Signature: ____ Date/Time: Relationship to Patient: __ Witness Name/Signature: Date/Time: [facility] 05-24-2025 Anesthesiology Consult note Patient: SAV ROJAS Age: 69 years Sex: Female : 1955 Associated Diagnoses: None Author: RUTHIE PEREZ Preoperative Information Time of last food or liquid consumption: 05/23/2025 22:00:00 Anesthesia history Patient's history: negative. Family's history: negative. Review of Systems Ear/Nose/Mouth/Throat: Negative except as documented in history of present illness. Respiratory: Negative except as documented in history of present illness. Cardiovascular: Negative except as documented in history of present illness. Gastrointestinal: Negative except as documented in history of present illness. Genitourinary: Negative except as documented in history of present illness. Endocrine: Negative except as documented in history of present illness. Musculoskeletal: Negative except as documented in history of present illness. Integumentary: Negative except as documented in history of present illness. Neurologic: Negative except as documented in history of present illness. Health Status Allergies: Allergic Reactions (Selected) Severity Not Documented Penicillins- Unknown., Allergies (1) ActiveSeverityReaction penicillinsUnknown Current medications: (Selected) Inpatient Medications Ordered LR 1,000 mL: 125 mL/hr, Intravenous clindamycin 900 mg/50 mL-D5% intravenous solution: 900 mg, 50 mL, 100 mL/hr, IV Piggyback, PREOP pharm Prescriptions Prescribed ergocalciferol 50,000 intl units (1.25 mg) oral capsule: 50,000 International_Unit, 1 cap(s), Oral, every other week, for 90 day(s), 7 cap(s), 1 Refill(s) hydroCHLOROthiazide 25 mg oral tablet: 25 mg, 1 tab(s), Oral, qDay, 90 tab(s), 1 Refill(s) lisinopril 40 mg oral tablet: 40 mg, 1 tab(s), Oral, qDay, 90 tab(s), 1 Refill(s) naproxen 500 mg oral tablet: 500 mg, 1 tab(s), Oral, BID, for 90 day(s), PRN: as needed for arthritis, 180 tab(s), 1 Refill(s) omeprazole 40 mg oral delayed release capsule: 40 mg, 1 cap(s), Oral, qDay, 90 cap(s), 1 Refill(s) Documented Medications Documented Magnesium 250 mg tablet: mg, tab(s), Oral, qDay, 0 Refill(s) Multivitamin: 1 tab(s), Oral, Daily, 0 Refill(s) Vitamin B6 50 mg oral tablet: 50 mg, 1 tab(s), Oral, Daily, 0 Refill(s) isoniazid 300 mg oral tablet: 300 mg, 1 tab(s), Oral, qDay, 0 Refill(s), Medications (2) Active Scheduled: (1) clindamycin PMX 900 mg 50 mL, IV Piggyback, PREOP pharm Continuous: (1) Lactated Ringers 1,000 mL 1,000 mL, Intravenous, 125 mL/hr PRN: (0) Problem list: Medical Anemia, mild / SNOMED CT 760693940 / Confirmed BMI 32.0-32.9,adult / SNOMED CT 786863034 / Confirmed Screening for cervical cancer / SNOMED CT 7251879783 / Confirmed GERD (gastroesophageal reflux disease) / SNOMED CT 784742185 / Confirmed Heart murmur, 2/6 / SNOMED CT 658027484 / Confirmed Hyperlipidemia / SNOMED CT 96318432 / Confirmed HTN, goal below 140/90 / SNOMED CT 1202390785 / Confirmed Increased BMI (body mass index) / SNOMED CT 45924860 / Confirmed Non-smoker / SNOMED CT 89873465 / Confirmed Immunization deficiency / SNOMED CT 8999835960 / Confirmed Medicare annual wellness visit, initial / SNOMED CT 130051955 / Confirmed Screening for breast cancer / SNOMED CT 480631178 / Confirmed Screening for glaucoma / SNOMED CT 685898108 / Confirmed Screening for cardiovascular condition / SNOMED CT 005034462 / Confirmed Screening for colorectal cancer / SNOMED CT 102339576 / Confirmed Screening for diabetes mellitus / SNOMED CT 144170593 / Confirmed Risk and functional assessment / SNOMED CT 000053425 / Confirmed Postmenopausal / SNOMED CT 463619630 / Confirmed Psoriatic arthritis / SNOMED CT 087904461 / Confirmed Umbilical hernia / SNOMED CT 7807903105 / Confirmed Need for vaccination / SNOMED CT 9029457219 / Confirmed Vitamin D deficiency / SNOMED CT 72220579 / Confirmed Resolved: Bloating / SNOMED CT 176615985 Resolved: Diarrhea / SNOMED CT 586848913 Resolved: Nausea / SNOMED CT 0525313652 Canceled: Otalgia of both ears / SNOMED CT 569002199 Canceled: Cerumen debris on tympanic membrane of both ears / SNOMED CT 357275 Canceled: HTN, goal below 130/80 / SNOMED CT 7611964473 Canceled: Cerumen impaction / SNOMED CT 79373150 Canceled: Impacted cerumen of left ear / SNOMED CT 23785427 Canceled: Otalgia of left ear / SNOMED CT 8900536128 Canceled: Overweight / SNOMED CT 780982338, Active Problems (24) Anemia, mild BMI 32.0-32.9,adult DDD (degenerative disc disease), lumbar GERD (gastroesophageal reflux disease) Heart murmur, 2/6 HTN, goal below 140/90 Hyperlipidemia Immunization deficiency Increased BMI (body mass index) Medicare annual wellness visit, initial Need for vaccination Non-smoker Postmenopausal Psoriatic arthritis Risk and functional assessment Screening for breast cancer Screening for cardiovascular condition Screening for cervical cancer Screening for colorectal cancer Screening for diabetes mellitus Screening for glaucoma TB lung, latent Umbilical hernia Vitamin D deficiency Histories Past Medical History: Resolved Nausea (6142558729): Resolved. Bloating (239542610): Resolved. Diarrhea (457356741): Resolved. Family History: Breast cancer Mother (): onset at 60 . Grandparent Comments: 09/20/2023 13:53 Tonya Luis LPN maternal grandmother, had lumpectomy. Onset age 70's or 80's Hypertension Mother () Father () Sister Brother Heart disease Mother () Grandparent Psoriasis Sister Father () Diabetes Mother () Grandparent Parkinsons disease Brother Prostate cancer Father () Comments: 09/20/2023 13:52 Tonya Luis LPN onset age = 60's. Procedure history: History of umbilical hernia surgery ([id number]) on 09/22/2023 at 68 Years. Comments: 09/22/2023 11:17 Alana Contreras RN Robotic assisted umbilical hernia repair Cataract ([id number]) in 2019 at 64 Years. Comments: 10/26/2022 9:16 Denise Jorge LPN Bilateral Tubal ligation done ([id number]) in 1991 at 37 Years. Calcaneal spurs of both heels ([id number]). Social History: Social & Psychosocial Habits Alcohol 05/24/2025 Use: Past Frequency: 1-2 times per month Substance Abuse 05/24/2025 Use: Current Type: Marijuana Frequency: Daily Comment: VAHE LOPEZ - 09/14/2023 09:02 Jody Bey RN Tobacco 05/24/2025 Tobacco Use: Former smoker, quit more Type: Cigarettes Number of years: 25 Stopped at age: 47 Years Home/Environment 05/24/2025 Living situation: Home/Independent Domestic Concerns None Primary Test Car Driver: Self Current Home Treatments None Special Services and Community Resources None Spouse Name Laura Marital Status of Patient if Patient Independent Adult: Nutrition/Health 05/24/2025 Type of diet: Regular Caffeine intake amount: 3 cups of coffee per day Appetite Good Physical Examination Vital Signs 05/24/2025 7:39 EDT Temperature Temporal Artery 36.6 DegC Peripheral Pulse Rate 80 bpm Respiratory Rate 20 br/min Systolic Blood Pressure Non-Invasive 146 mmHg HI Diastolic Blood Pressure Non-Invasive 86 mmHg Vital Signs (last 24 hrs) Last Charted Temp Cowptksi03.6 DegC (MAY 24 07:39) SBPH 146 mmHg (MAY 24 07:39) DBP86 mmHg (MAY 24 07:39) Measurements from flowsheet : Measurements 05/24/2025 7:39 EDT Height 173 cm Admission Weight 97.7 kg [place] Body Weight 64.15 kg Admission Body Mass Index 32.64 m2 Pain assessment: Pain Assessment 05/24/2025 7:39 EDT Primary Pain Intensity 0 Pain Scale Type 0-10 Pain scale . General: Alert and oriented. Airway: Normal neck range of motion. Mallampati classification: II (soft palate, fauces, uvula visible). Head: Normocephalic. Dentition Evaluation: Intact, Own teeth. Neck: Full range of motion. Respiratory: Lungs are clear to auscultation. Cardiovascular: Normal rate. Heart Sounds: Normal. Gastrointestinal: Soft. Musculoskeletal Normal range of motion. Integumentary: Intact, Warm, Dry. Neurologic: Alert, Oriented. Review / Management Results review: No qualifying data available , Lab results 05/24/2025 7:51 EDT SN - Preop - CTm Pt in SDS Room 05/24/2025 7:20 SN - Preop - CTm Pt Ready for OR/Proced 05/24/2025 7:51 05/24/2025 7:44 EDT SN - PP - Body Position Supine Standard Intra-op 05/24/2025 7:44 EDT SN - PTCare - Anti-thromboembolism Norma Sequential Compression Device (SCD) 05/24/2025 7:43 EDT SN - Assess - LOC Alert SN - Assess - Orientation Oriented X 3 SN - Assess - Post-op Skin Integrity Intact/Dry 05/24/2025 7:43 EDT Lactated Ringers Injection Begin Bag 1,000 mL mL 05/24/2025 7:42 EDT SN - [place] - Route of Administration Local SN - [place] - By (Single) SN - [place] - By (Single) 05/24/2025 7:42 EDT SN - GCD - Post-operative Diagnosis SHORT ACHILLES, RIGHT; POSTERIOR TIBIAL TENON DYSFUNCTION, RIGHT; SPRING LIGAMENT INSUFFICIENCY, RIGHT SN - GCD - Case Level Level 4 05/24/2025 7:42 EDT Hand Left 05/24/2025 20 gauge Peripheral IV Activity: Insert new site Peripheral IV Dressing Condition: Clean, Dry, Intact Peripheral IV Dressing Activity: Applied Peripheral IV Line Status/Patency: Flushes easily, Continuous infusion Peripheral IV Site Condition: No complications Peripheral IV Equipment: Extension set, PRN Adaptor Peripheral IV Number of Attempts: 1 05/24/2025 7:39 EDT SN - CAt - Case Attendee SN - CAt - Case Attendee SN - CAt - Case Attendee SN - CAt - Case Attendee SN - CAt - Case Attendee SN - CAt - Case Attendee SN - CAt - Case Attendee SN - CAt - Case Attendee SN - CAt - Role Performed Primary Surgeon SN - CAt - Role Performed Nurse Licensed Practical 1 SN - CAt - Role Performed Scrub 1 SN - CAt - Role Performed Still Operator 1 05/24/2025 7:39 EDT Height 173 cm Admission Weight 97.7 kg [place] Body Weight 64.15 kg Admission Body Mass Index 32.64 m2 Temperature Temporal Artery 36.6 DegC Peripheral Pulse Rate 80 bpm Respiratory Rate 20 br/min Systolic Blood Pressure Non-Invasive 146 mmHg HI Diastolic Blood Pressure Non-Invasive 86 mmHg Primary Pain Intensity 0 Pain Scale Type 0-10 Pain scale Heart Rhythm Regular Dorsalis Pedis Pulse, Right 2+ Normal Respirations Unlabored Respiratory Pattern Regular All Lobes Breath Sounds Clear Oxygen Therapy Room air Oxygen Saturation 96 % Abdomen Description Non-distended Skin Description [place], Dry Skin Integrity Intact Neurological Symptoms Patient denies Extremity Movement Equal Characteristics of Speech Clear Level of Consciousness Alert Strength All Extremities Strong Sensation All Extremities Intact Affect/Behavior Appropriate, Calm, Cooperative Orientation Oriented x 4 Paula Motor (2) Moves 4 extremities voluntarily or on command Paula Respirations (2) Spontaneous respiration without support, RR > 10 Paula Blood Pressure (2) BP 20% above or below preanesthetic level Paula Pulse (2) Pulse 20% above or below preanesthetic level Paula Oxygen Saturation (2) 94% or more Paula Level of Consciousness (2) Fully awake Paula III Score 12 Orientation Assessment Oriented x 4 Assistive Device None Positioning Repositions self Mobility Assistance Level Independent Sequential Compression Device bilateral knee high applied/on Standard Safety ID band on, Allergy Band on, Call device within reach, Bed in low position, Wheels locked 05/24/2025 7:38 EDT IV Present Present Allergies Yes Anesthesia Extension Set Applied Yes Roller Turner On Yes Consent Form Signed Yes Patient Dressed In Hospital gown CHG Preoperative Wash/Wipe Night before procedure, Day of procedure, Site specific wipe Preop Nasal Swab Povidone-Iodine CHG Skin Prep Completed for Eligible Surgery History & Physical Update On Chart Yes History & Physical On Chart Yes Belongings At Bedside Glasses, Pants, Shirt, Shoes, Socks NPO Status Maintained Allergy Band on and Verified Yes Patient ID Band on and Verified Yes Implants Verified Yes Pacemaker/AICD Verified Yes Site Verified by Patient/Family Yes Anesthesia Consent Signed Yes Blood Consent Signed Yes Last Fluid Intake 05/23/2025 22:30 Last Food Intake 05/23/2025 22:00 05/24/2025 7:37 EDT IHC At-Risk Indicator YES 05/24/2025 7:36 EDT IHC At-Risk Indicator YES 05/24/2025 7:25 EDT Designated Person #1 We May Share CRISTAL ROJAS [phone] Designated Person #1 Relationship Spouse Privacy Restrictions Requested None Status No, per patient Sensory Deficits None Sleep Apnea Snore No Sleep Apnea Tired No Sleep Apnea Obstruction No Sleep Apnea Pressure Yes Sleep Apnea BMI No Sleep Apnea Age Yes Sleep Apnea Neck No Sleep Apnea Gender No Sleep Apnea Score 2 Diagnosed With Sleep Apnea No Advanced Directives No - refuses information Infectious Disease Symptoms Patient states no symptoms Infectious Disease Recent Exposure No Alcohol and Drug Use No Employee of Institutional Living No Health Care Employee No History of Exposure to TB No History of Positive Chest X-Ray for TB No History of Positive TB Skin Test No Homeless No Known Immunosuppression No Recent Immigrant No Resident of Institutional Living No Bloody Sputum No Fatigue No Fever No Loss of Appetite No Night Sweats No Persistent Cough > 3 Weeks No Weight Loss No Pre-Op Patient Education NPO after midnight, No makeup, No jewelry, Responsible Alliance Party, Aware of surgery location, Pre-op education done, 1 bottle CHG wash with instructions given, Instructed to take ordered medications, SSI prevention handout given SN - Preprocedure Comments Spoke with patient, Verbalizes/Nonverbally indicates understanding, Other: omeprazole Barriers to Learning None evident Teaching Method Explanation, Printed materials Preferred Spoken Language Mozambican Preferred Written Language Mozambican Teaching Evaluation Needs further teaching Safety Brochure Information Reviewed Yes Conchis Jon Video Viewed No Patient's Current Physicians Patient's Current Physicians History of Malignant Hyperthermia No Discharge To, Anticipated Home independently Prev Test Positive/Diagnosis w/COVID-19 No Current Quarantine/Isolated any Illness No Any Contact with Sick Animals/Birds No Traveled Anywhere in Last 30 Days No Lost Weight Unintentionally Recently No Eat Poorly Due to Decreased Appetite No Total MST Score 0 No Personal Devices, Patient Valuables Glasses Anesthesia/Transfusions Prior anesthesia Admission Note-Nursing Same Day Patient History 05/24/2025 7:02 EDT IHC At-Risk Indicator YES . Assessment and Plan [place] [employer] Anesthesiologists (ASA) physical status classification: Class II. Anesthetic Preoperative Plan Premedication: intravenous. Anesthetic technique: General. Induction: intravenously. Maintenance airway: Laryngeal mask airway. Postoperative pain management: Per surgeon. Risks discussed: nausea, vomiting, headache, sore throat, dental injury, hypotension, allergic reaction, serious complications. Informed consent: signed by patient. Digitally Signed by RUTHIE PEREZ on 05/24/2025 09:06 AM [facility] 04-05-2025 Radiology Diagnostic study note [facility] Imaging Services [address] [address] Chest PA and Lateral MR#: [id number] Acct: [id number] Name: SAV ROJAS Rep #: [id number] : 1955 F 69 From: Vanna Marroquin MD PCP: MIC Guzman Status: REG CLI Study:Chest PA and Lateral Date of Exam: 04/04/25 Exam# [id number] Ordering Dr: Krysta Pavon MD PROCEDURE: CHEST PA AND LATERAL 04/04/2025 REASON FOR EXAM: INSIDE WIREMAN DRUG THERAPY TECHNIQUE: CHEST PA AND LATERAL COMPARISON: None. FINDINGS: The lungs are expanded. There is no demonstrated parenchymal abnormality. There is no demonstrated pleural abnormality. Normal heart and pericardium. Normal mediastinum and krissy. Normal visualized pulmonary arteries. Normal visualized aortic arch and descending thoracic aorta. Diffuse spondylosis of the visualized thoracic spine. Normal visualized ribs, clavicles, and shoulders. There is no demonstrated abnormality of the visualized soft tissue structures ofthe upper abdomen. RAD/Chest PA and Lateral IMPRESSION: No evidence for acute abnormality. Reading [facility] CC: PRIVATE DUTY NURSE-C Daniel Montilla; Dr. Urbano Pavon MD ~ Canal Tender: Signed [facility] Evaluation + Plan note Future Appointments Appointment Date:10/26/2022 09:00:00 AM Scheduled Provider:DANIEL MONTILLA APRN, CNP Location:[facility] Appointment Type: Wellness Medicare Appointment Date:03/04/2023 10:20:00 AM Scheduled Provider:DANIEL MONTILLA APRN, CNP Location:[facility] Appointment Type: OV Follow Up Diagnostic Tests PendingHPV Screen, DNA Probe 08/31/22 Future Scheduled TestsComplete Blood Count 5/18/23Lipid Profile 03/03/23Microalbumin Level Urine 03/03/23Vitamin D Level 03/03/23Complete Metabolic Panel 03/03/23MA Mammo Screening Bilateral w/ Ollie 08/31/22BD Bone Density DEXA Axial Skeleton 09/03/22 [facility] Evaluation + Plan note Future Appointments Appointment Date:09/02/2023 10:20:00 AM Scheduled Provider:DANIEL MONTILLA [employer] - TROLLEY COLLECTOR Location:[facility] Appointment Type:PC OV Follow Up Appointment Date:09/20/2023 01:30:00 PM Scheduled Provider:ELZA ADAM MD Location:[facility] Appointment Type: OV Annual Exam Future Scheduled TestsMicroalbumin Level Urine 03/03/23MA Mammo Screening Bilateral w/ Ollie 08/31/22BD Bone Density DEXA Axial Skeleton 09/03/22 [facility] Evaluation + Plan note Future Appointments Appointment Date:08/30/2025 10:00:00 AM Scheduled Provider:DANIEL MONTILLA APRN - TROLLEY COLLECTOR Location:[facility] Appointment Type:PC OV Follow Up Future Scheduled TestsMagnesium Level 02/28/25Complete Blood Count 09/01/24Complete Blood Count 02/28/25Complete Blood Count 09/01/25Lipid Profile 09/01/24Lipid Profile 02/28/25Lipid Profile 25Albumin/Creatinine Ratio, Random Urine 09/01/24Albumin/Creatinine Ratio, Random Urine 25Albumin/Creatinine Ratio, Random Urine 09/01/25Vitamin D Level 09/01/24Vitamin D Level 02/28/25Vitamin D Level 09/01/25Complete Metabolic Panel 09/01/24Complete Metabolic Panel 02/28/25Complete Metabolic Panel 09/01/25MA Mammo Screening Bilateral w/ Ollie 10/02/24 [facility] Evaluation note No assessment information availa [facility] Work Phone: Hospital course Narrative No data available for this section [facility] Hospital Discharge instructions No data available for this section [facility] Progress note No data available for this section [facility] Reason for referral (narrative) No reason for referral information available [facility] Work Phone: Chief Complaint and Reason for Visit Chief Complaint SCREENING Chief Complaint SCREENING Chief Complaint Admit Date SCREENING December 20, 2024 10:2 1am Chief Complaint Admit Date SCREENING December 20, 2024 10:2 1am FASTING February 22, 2025 8:06am Chief Complaint Admit Date SCREENING December 20, 2024 10:2 1am FASTING February 22, 2025 8:06am SKIN March 27, 2025 10:0 0am REDRAW TB April 02, 2025 10:4 5am Chief Complaint Admit Date SCREENING December 20, 2024 10:2 1am FASTING February 22, 2025 8:06am SKIN March 27, 2025 10:0 0am REDRAW TB April 02, 2025 10:4 5am CHEST X-RAY April 04, 2025 2:57 pm Summary Purpose Family History No Family History Records Found Advance Directives No Advanced Directives Records FoundNo Advanced Directives Records FoundNo Advanced Directives Records [...] alternate section No data available for this section No data available for this section Care Team (unrecognized sect ion and content) Care Team Personnel Name: DANIEL MONTILLA APRN - TROLLEY COLLECTOR Position: P4 Advanced Practice Nurse Member Role: Primary Care Physician Address: Address: [address] [place] [address]- [place] Care Team Related Persons Name: LAURA ROJAS Address: Home [address] [place], [place] [id number] Address: Temporary [address] [place], [place] [id number] Care Teams (unrecognized sec tion and content) Team Status: Active Member Role Status Dates Daniel Montilla PRIVATE DUTY NURSE, PRIVATE DUTY NURSE-C Family Provider Activ e Daniel Montilla PRIVATE DUTY NURSE, PRIVATE DUTY NURSE-C Primary Care Provider Active Team Status: Inactive Member Role Status Dates Daniel Montilla PRIVATE DUTY NURSE, PRIVATE DUTY NURSE-C Primary Care Provider, Attending Provider, Referring Provider Active Team Status: Inactive Member Role Status Dates Daniel Montilla PRIVATE DUTY NURSE, PRIVATE DUTY NURSE-C Primary Care Provider Active Dr. Branden James MD Attending Provider, Referring P jess Active Team Status: Active Member Role Status Dates Daniel Montilla PRIVATE DUTY NURSE, PRIVATE DUTY NURSE-C Primary Care Provider Active Team Status: Inactive Member Role Status Dates Daniel Montilla PRIVATE DUTY NURSE, PRIVATE DUTY NURSE-C Primary Care Provider Active Start: December 20, 2024 End: December 20, 2024 Dr. Elza Adam MD Attending Provider Active Start: December 20, 2024 End: December 20, 2024 Dr. Elza Adam MD Referring Provider Active Start: December 20, 2024 End: December 20, 2024 Team Status: Inactive Member Role Status Dates Daniel Montilla PRIVATE DUTY NURSE, PRIVATE DUTY NURSE-C Primary Care Provider Active Start: February 22, 2025 End: February 22, 2025 Daniel Montilla PRIVATE DUTY NURSE, PRIVATE DUTY NURSE-C Attending Provider Ac tive Start: February 22, 2025 End: February 22, 2025 Daniel Montilla PRIVATE DUTY NURSE, PRIVATE DUTY NURSE-C Referring Provider Ac tive Start: February 22, 2025 End: February 22, 2025 Team Status: Inactive Member Role Status Dates Daniel Montilla PRIVATE DUTY NURSE, PRIVATE DUTY NURSE-C Primary Care Provider Active Start: March 27, 2025 End: March 27, 2025 Dr. Urbano Pavon MD Attending Provider Active S tart: March 27, 2025 End: March 27, 2025 Dr. Urbano Pavon MD Referring Provider Active S tart: March 27, 2025 End: March 27, 2025 Team Status: Active Member Role Status Dates Daniel Montilla NP, PRIVATE DUTY NURSE-C Primary Care Provider Active Start: April 02, 2025 Dr. Urbano Pavon MD Attending Provider Active S tart: April 02, 2025 Dr. Urbano aPvon MD Referring Provider Active S tart: April 02, 2025 Team Status: Inactive Member Role Status Dates Daniel Montilla PRIVATE DUTY NURSE, PRIVATE DUTY NURSE-C Primary Care Provider Active Start: April 02, 2025 End: April 02, 2025 Dr. Urbano Pavon MD Attending Provider Active S tart: April 02, 2025 End: April 02, 2025 Dr. Urbano Pavon MD Referring Provider Active S tart: April 02, 2025 End: April 02, 2025 Team Status: Active Member Role Status Dates Daniel Montilla PRIVATE DUTY NURSE, PRIVATE DUTY NURSE-C Primary Care Provider Active Start: April 04, 2025 Dr. Urbano Pavon MD Attending Provider Active S tart: April 04, 2025 Dr. Urbano Pavon MD Referring Provider Active S tart: April 04, 2025 Team Status: Active Member Role/Relationship Status Dates Daniel Montilla PRIVATE DUTY NURSE, PRIVATE DUTY NURSE-C Primary Care Provider Active Team Status: Inactive Member Role/Relationship Status Dates Daniel Montilla PRIVATE DUTY NURSE, PRIVATE DUTY NURSE-C Primary Care Provider Active Start: December 20, 2024 End: December 20, 2024 Dr. Elza Adam MD Attending Provider Active Start: December 20, 2024 End: December 20, 2024 Dr. Elza Adam MD Referring Provider Active Start: December 20, 2024 End: December 20, 2024 Team Status: Inactive Member Role/Relationship Status Dates Daniel Montilla PRIVATE DUTY NURSE, PRIVATE DUTY NURSE-C Primary Care Provider Active Start: February 22, 2025 End: February 22, 2025 Daniel Montilla PRIVATE DUTY NURSE, PRIVATE DUTY NURSE-C Attending Provider Ac tive Start: February 22, 2025 End: February 22, 2025 Daniel Montilla PRIVATE DUTY NURSE, PRIVATE DUTY NURSE-C Referring Provider Ac tive Start: February 22, 2025 End: February 22, 2025 Team Status: Inactive Member Role/Relationship Status Dates Daniel Montilla PRIVATE DUTY NURSE, PRIVATE DUTY NURSE-C Primary Care Provider Active Start: March 27, 2025 End: March 27, 2025 Dr. Urbano Pavon MD Attending Provider Active S tart: March 27, 2025 End: March 27, 2025 Dr. Urbano Pavon MD Referring Provider Active S tart: March 27, 2025 End: March 27, 2025 Team Status: Inactive Member Role/Relationship Status Dates Daniel Montilla PRIVATE DUTY NURSE, PRIVATE DUTY NURSE-C Primary Care Provider Active Start: April 02, 2025 End: April 02, 2025 Dr. Urbano Pavon MD Attending Provider Active S tart: April 02, 2025 End: April 02, 2025 Dr. Urbano Pavon MD Referring Provider Active S tart: April 02, 2025 End: April 02, 2025 Team Status: Inactive Member Role/Relationship Status Dates Daniel Montilla PRIVATE DUTY NURSE, PRIVATE DUTY NURSE-C Primary Care Provider Active Start: April 04, 2025 End: April 04, 2025 Dr. Urbano Pavon MD Attending Provider Active S tart: April 04, 2025 End: April 04, 2025 Dr. Urbano Pavon MD Referring Provider Active S tart: April 04, 2025 End: April 04, 2025 INFORMATION SOURCE (unrecogn ized section and content) DATE CREATED AUTHOR 09/26/2023 [facility] ([place]) DATE CREATED AUTHOR AUTHOR'S ORGANIZ ATION 06/07/2025 [facility] DATE CREATED AUTHOR AUTHOR'S ORGANIZ ATION 07/26/2025 [facility] FOR RECORDS PERTAINING TO PATIENTS WHO [...] BE BASED ON THE PRIMARY CLINICAL RECORDS. [facility] [employer] [facility]. provides no warranty or guarantee of the accuracy or completeness of information in this document.
[2025-08-23 10:14] LABS: Hematocrit 38.7 % (37-47); Hemoglobin 12.5 g/dL (12.0-15.0); Mean Corp Hgb Conc 32.3 g/dL (32-36); Mean Corpuscular Volume 92.8 fL (81-99); Mean Platelet Vol. 9.5 fl (6.2-12.0); Platelet Count 358 K/mm3 (150-450); RBC Distribution Width CV 13.0 % (11.6-14.6); RBC Distribution Width SD 44.2 fl (35.1-43.9); Red Blood Count 4.17 M/mm3 (4.2-5.4); White Blood Count 5.8 K/mm3 (4.4-11.0)
[2025-08-23 10:59] LABS: AST(SGOT) 22 U/L (<=31); Alanine Aminotransfer ALT/SGPT 29 U/L (<=34); Albumin, Serum 4.1 g/dL (3.4-4.8); Alkaline Phosphatase 86 U/L (35-104); Anion Gap 9 (5-15); BUN 15 mg/dL (4-19); BUN/Creat Ratio 19.5 RATIO (10-20); Calcium,Total 9.8 mg/dL (7.6-11.0); Carbon Dioxide 29.3 mmol/L (21.0-32.0); Chloride 101 mmol/L (98-108); Cholesterol 188 mg/dL (<=200); Globulin 2.6 g/dL (2.2-4.2); Glucose 95 mg/dL (70-99); Low Density Lipoprotein Calc. 112 mg/dL; Potassium 4.0 mmol/L (3.3-5.1); Triglycerides 137 mg/dL; Very Low Density Lipoprotein 27 mg/dL (5-40); Vitamin D,25 Hydroxy 56.6 ng/mL (30-100); cholesterol:hdl ratio screen 3.66
[2025-08-23 11:26] LABS: Creatinine, Urine (random) 45.50 mg/dL (28.00-217.00); Microalbumin,Random Urine < 12.0 mg/L (<20 mg/L)
== END | disposition home or self-care (01) ==
LOC: MTLAB 07:15
PROVIDERS: PCP Nurse Practitioner Family; Referring Provider Nurse Practitioner Family; Visit Provider Nurse Practitioner Family
DX: I10 Essential (primary) hypertension (principal); E78.5 Hyperlipidemia, unspecified; E55.9 Vitamin D deficiency, unspecified; D64.9 Anemia, unspecified
CPT/HCPCS: 36415; 80053; 80061; 82043; 82306; 82570; 85027